=== PATIENT | female | born 1960 | race Caucasian/White ===

== ENCOUNTER 2021-03-02 07:43 | Outpatient (CLI) | payer OTHER, SELFPAY | END 2021-03-02 07:44 | disposition home or self-care (01) | LOC: ANHAUDIO 07:46 | PROVIDERS: PCP Internal Medicine; Visit Provider Nurse Practitioner Family | DX: R42 Dizziness and giddiness (principal); H90.3 Sensorineural hearing loss, bilateral | CPT/HCPCS: 92537; 92540; 92546; 92557; 92567 ==

== ENCOUNTER 2022-09-19 15:17 | Outpatient (CLI) | payer OTHER, SELFPAY ==
--- NOTE | ~2022-09-19 | DEXA_ITS ---
Bone Density Report Name: JUAN PABLO STEPHENS Age: 61 Sex: Female Ethnicity: White Date of : 1960 Indication: postmenopausal; screening for osteoporosis; prior fracture; hysterectomy; Referring Provider: AMANDA, CURT Ye Study: Bone densitometry was performed. Exam Date: September 19, 2022 Accession number: [id number] Bone Density: Region BMD T-score Z-score Classification AP Spine(L1-L4) 1.109 0.6 2.0 Normal Femoral Neck (Left) 0.744 -0.9 0.4 Normal Total Hip (Left) 0.984 0.3 1.3 Normal Femoral Neck (Right) 0.668 -1.6 -0.3 Osteopenia Total Hip (Right) 0.980 0.3 1.3 Normal Total Hip Mean 0.982 0.3 1.3 Normal World Health Organization criteria for BMD impression classify patients as: Normal (T-score at or above -1.0), Osteopenia (T-score between -1.0 and -2.5), or Osteoporosis (T-score at or below -2.5). 10-year Fracture Risk(1): Major Osteoporotic Fracture 14% Hip Fracture 1.3% Reported Risk Factors: [place] (), Neck BMD=0.668, BMI=31.9, previous fracture (1) FRAX(R) Version 3.08. Fracture probability calculated for an untreated patient. Fracture probability may be lower if the patient has received treatment. Clinical Information Provided by Patient: Has had a low trauma fracture Has used the following medications: Vitamin D, Calcium Has the following medical conditions: Hysterectomy Patient maximum height was 64.5 Menopause Age: 46 Drinks caffeinated beverages Onset of menses at age 14 Number of children 1 Impression: The patient has low bone mass, based on the Right Femoral Neck T-score. The patient has an estimated ten-year risk of hip fracture of 1.3% and an estimated ten-year risk of major fracture of 14%, based on the WHO FRAX algorithm. The patient has risk factors, including: previous fracture. Discussion: BONE DENSITY IS LOW AT ONE OR MORE SKELETAL SITES. This patient's lowest T-score is low at one or more skeletal sites. It meets the World Health Organization's (WHO) criteria for ?low bone mass? (T-score between -1.0 and -2.5). The patient's 10-year risk of fracture as calculated by FRAX is less than the threshold where pharmacological therapy is recommended by the National Osteoporosis Foundation (NOF). However, all treatment decisions require clinical judgment and consideration of individual patient factors, including patient preferences, comorbidities, previous drug use, risk factors not captured in the FRAX model (e.g., frailty, falls, vitamin D deficiency, increased bone turnover, interval significant decline in bone density) and possible under or overestimation of fracture risk by FRAX. The patient should follow a healthful lifestyle (good nutrition with adequate calcium and vitamin D, and appropriate weight-bearing exercise). Follow-Up:
== END 2022-09-19 15:18 | disposition home or self-care (01) ==
PROVIDERS: PCP Internal Medicine; Visit Provider Internal Medicine
DX: Z78.0 Asymptomatic menopausal state (principal); M85.851 Other specified disorders of bone density and structure, right thigh
CPT/HCPCS: 77080

== ENCOUNTER → 2023-01-23 14:03 | Outpatient (CLI) | payer OTHER, SELFPAY ==
--- NOTE | ~2023-01-23 | MM_ITS ---
EXAMINATION: MM screening elaine BI w sukhi HISTORY: Screening mammogram TECHNIQUE: Craniocaudal and mediolateral oblique 3-D tomosynthesis images were obtained and synthetic 2-D images were generated. Bilateral rotated lateral CC views. CAD analysis was submitted and interp reted. COMPARISON: No prior mammogram is available for comparison at this institution. BREAST PARENCHYMAL COMPOSITION: There are scattered areas of fibroglandular density. FINDINGS: There is no evidence of suspicious mass, calcification, or architectural distortion to sugg est malignancy in either breast. There has been no suspicious interval change. IMPRESSION: 1. No mammographic evidence of malignancy. 2. Recommend routine screening mammography in one year. BI-RADS Category 1: Negative Reviewed, dictated and finalized at location A.
== END ==
PROVIDERS: PCP Internal Medicine; Visit Provider Internal Medicine
DX: Z12.31 Encounter for screening mammogram for malignant neoplasm of breast (principal)
CPT/HCPCS: 77063; 77067

== ENCOUNTER 2024-08-19 14:46 | Outpatient (CLI) | payer OTHER, SELFPAY ==
--- NOTE | ~2024-08-19 | MM_ITS ---
EXAMINATION: MM screening elaine BI w sukhi HISTORY: Screening mammogram TECHNIQUE: Craniocaudal and mediolateral oblique 3-D tomosynthesis images were obtained and synthetic 2-D images were generated. CAD analysis was submitted and interpreted. COMPARISON: 01/23/2023 BREAST PARENCHYMAL COMPOSITION:Not Dense. There are scattered areas of fibroglandular density. FINDINGS: No suspicious mass, calcification, or architectural distortion are identified in either kiran ast to suggest malignancy. There has been no suspicious interval change. IMPRESSION: No mammographic evidence of malignancy. Recommend routine screening mammography in one year. BI-RADS Category 1: Negative Reviewed, dictated and finalized at location .
== END 2024-08-19 14:47 | disposition home or self-care (01) ==
PROVIDERS: PCP Internal Medicine; Visit Provider Internal Medicine
DX: Z12.31 Encounter for screening mammogram for malignant neoplasm of breast (principal)
CPT/HCPCS: 77063; 77067

== ENCOUNTER 2024-10-28 13:20 | Outpatient (CLI) | payer OTHER, SELFPAY ==
--- NOTE | 2024-10-28 14:30 | NEURO_ITS ---
Impression: # Complains of numbness of hands. Not Diabetic. ? 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 ? # No Carpal Tunnel Syndrome. ? # Normal needle/EMG exam. Nerve Conduction Studies Anti Sensory Summary Table ?Stim Site NR Peak (ms) P-T Amp (?V) Site1 Site2 Delta-P (ms) Dist (cm) Andrew (m/s) Left Median Anti Sensory (2-3nd Digit) Wrist ? 3.3 85.4 Wrist 2-3nd Digit 3.3 14.0 42 Wrist ? 3.3 70.9 Wrist 2-3nd Digit 3.3 14.0 42 Right Median Anti Sensory (2-3nd Digit) Wrist ? 3.0 75.9 Wrist 2-3nd Digit 3.0 14.0 47 Wrist ? 3.1 54.6 Wrist 2-3nd Digit 3.0 14.0 47 Left Radial Anti Sensory (Base 1st Digit) Wrist ? 2.1 39.4 Wrist Base 1st Digit 2.1 0.0 Right Radial Anti Sensory (Base 1st Digit) Wrist ? 2.4 16.2 Wrist Base 1st Digit 2.4 0.0 Left Ulnar Anti Sensory (5th Digit) Wrist ? 3.0 94.3 Wrist 5th Digit 3.0 14.0 47 Right Ulnar Anti Sensory (5th Digit) Wrist ? 2.7 73.7 Wrist 5th Digit 2.7 14.0 52 Motor Summary Table ?Stim Site NR Onset (ms) O-P Amp (mV) Site1 Site2 Delta-0 (ms) Dist (cm) Andrew (m/s) Left Median Motor (Abd Poll Brev) Wrist ? 3.8 9.3 Elbow Wrist 4.6 27.0 59 Elbow ? 8.4 7.4 Right Median Motor (Abd Poll Brev) Wrist ? 3.4 10.2 Elbow Wrist 4.8 28.0 58 Elbow ? 8.2 8.5 Left Ulnar Motor (Abd Dig Minimi) Wrist ? 2.6 6.2 A Elbow Wrist 5.5 30.0 55 A Elbow ? 8.1 5.4 Right Ulnar Motor (Abd Dig Minimi) Wrist ? 2.1 6.1 A Elbow Wrist 5.9 29.0 49 A Elbow ? 8.0 4.6 B Elbow Wrist 3.7 19.0 51 B Elbow ? 5.8 5.4 F Wave Studies ?NR F-Lat (ms) L-R F-Lat (ms) Left Median (Mrkrs) (Abd Poll Brev) ? 28.77 1.35 Right Median (Mrkrs) (Abd Poll Brev) ? 27.42 1.35 Left Ulnar (Mrkrs) (Abd Dig Min) ? 28.95 0.41 Right Ulnar (Mrkrs) (Abd Dig Min) ? 28.54 0.41 EMG ?Side Muscle Nerve Root Ins Act Fibs Amp Dur Recrt Comment Right 1stDorInt Ulnar C8-T1 Nml Nml Nml Nml Nml Right Ext Indicis Radial (Post Int) C7-8 Nml Nml Nml Nml Nml Right Ext Digitorum Radial (Post Int) C7-8 Nml Nml Nml Nml Nml Right BrachioRad Radial C5-6 Nml Nml Nml Nml Nml Right PronatorTeres Median C6-7 Nml Nml Nml Nml Nml Right Abd Poll Brev Median C8-T1 Nml Nml Nml Nml Nml Right ABD Dig Min Ulnar C8-T1 Nml Nml Nml Nml Nml Left 1stDorInt Ulnar C8-T1 Nml Nml Nml Nml Nml Left Ext Indicis Radial (Post Int) C7-8 Nml Nml Nml Nml Nml Left Ext Digitorum Radial (Post Int) C7-8 Nml Nml Nml Nml Nml Left BrachioRad Radial C5-6 Nml Nml Nml Nml Nml Left PronatorTeres Median C6-7 Nml Nml Nml Nml Nml Left Abd Poll Brev Median C8-T1 Nml Nml Nml Nml Nml Left ABD Dig Min Ulnar C8-T1 Nml Nml Nml Nml Nml MTDD
== END 2024-10-28 13:21 | disposition home or self-care (01) ==
LOC: ANHNEURO 13:21
PROVIDERS: PCP Internal Medicine; Visit Provider Internal Medicine
DX: G56.21 Lesion of ulnar nerve, right upper limb (principal)
CPT/HCPCS: 95886; 95911

== ENCOUNTER 2025-03-22 07:50 | Outpatient (CLI) | payer OTHER, SELFPAY ==
--- NOTE | ~2025-03-22 | DEXA_ITS ---
Bone Density Report Name: JUAN PABLO STEPHENS Age: 64 Sex: Female Ethnicity: White Date of : 1960 Indication: postmenopausal; screening for osteoporosis; height loss; prior fracture; hysterectomy; Referring Provider: AMANDA, CURT Ye Study: Bone densitometry was performed. Exam Date: March 22, 2025 Accession number: [id number] Bone Density: Region BMD T-score Z-score Classification AP Spine(L1-L4) 1.086 0.4 2.0 Normal Femoral Neck (Left) 0.671 -1.6 -0.2 Osteopenia Total Hip (Left) 0.909 -0.3 0.9 Normal Femoral Neck (Right) 0.647 -1.8 -0.4 Osteopenia Total Hip (Right) 0.904 -0.3 0.8 Normal Total Hip Mean 0.906 -0.3 0.9 Normal World Health Organization criteria for BMD impression classify patients as: Normal (T-score at or above -1.0), Osteopenia (T-score between -1.0 and -2.5), or Osteoporosis (T-score at or below -2.5). 10-year Fracture Risk(1): Major Osteoporotic Fracture 16% Hip Fracture 2.0% Reported Risk Factors: [place] (), Neck BMD=0.647, BMI=27.1, previous fracture (1) FRAX(R) Version 3.08. Fracture probability calculated for an untreated patient. Fracture probability may be lower if the patient has received treatment. Previous Exams: Region Exam Age BMD T-score BMD Change BMD Change Date g/cm2 vs Baseline vs Previous AP Spine (L1-L4) 03/22/2025 64 1.086 0.4 -0.023 (-2.1%) -0.023 (-2.1%) 09/19/2022 61 1.109 0.6 Total Hip(Left) 03/22/2025 64 0.909 -0.3 -0.075 (-7.7%) -0.075 (-7.7%) 09/19/2022 61 0.984 0.3 Total Hip(Right) 03/22/2025 64 0.904 -0.3 -0.076 (-7.8%) -0.076 (-7.8%) 09/19/2022 61 0.980 0.3 *Denotes significance at 95% confidence level, LSC for AP Spine = 0.022 g/cm2, LSC for Total Hip = 0.027 g/cm2 Clinical Information Provided by Patient: Has had a low trauma fracture Has used the following medications: Vitamin D, Calcium Has the following medical conditions: Hysterectomy Patient maximum height was 64.0 Menopause Age: 46 No regular weight bearing exercise Drinks caffeinated beverages Onset of menses at age 13 Number of children 1 Impression: The patient has low bone mass, based on the Right Femoral Neck T-score. The patient has an estimated ten-year risk of hip fracture of 2% and an estimated ten-year risk of major fracture of 16%, based on the WHO FRAX algorithm. The patient has risk factors, including: previous fracture. The BMD for the AP Spine (L1-L4) decreased, changing by -2.1% since the last DXA exam. The BMD for the Total Hip(Left) decreased, changing by -7.7% since the last DXA exam. The BMD for the Total Hip(Right) decreased, changing by -7.8% since the last DXA exam. Discussion: BONE DENSITY IS LOW AT ONE OR MORE SKELETAL SITES. This patient's lowest T-score is low at one or more skeletal sites. It meets the World Health Organization's (WHO) criteria for ?low bone mass? (T-score between -1.0 and -2.5). The patient's 10-year risk of fracture as calculated by FRAX is less than the threshold where pharmacological therapy is recommended by the National Osteoporosis Foundation (NOF). However, all treatment decisions require clinical judgment and consideration of individual patient factors, including patient preferences, comorbidities, previous drug use, risk factors not captured in the FRAX model (e.g., frailty, falls, vitamin D deficiency, increased bone turnover, interval significant decline in bone density) and possible under or overestimation of fracture risk by FRAX. The patient should follow a healthful lifestyle (good nutrition with adequate calcium and vitamin D, and appropriate weight-bearing exercise). Follow-Up: Consider repeating this study in 2 years to reassess this patient's status, or sooner if there is some new clinical indication. Reported by: KEVIN on 03/22/2025 8:40:00 AM. Reviewed, dictated and finalized at location A.
--- OUTSIDE RECORDS SUMMARY | 2025-03-22 07:54 | XMS_ITS | Clinical Summary ---
Author Organization [facility] Address [address] [place] [address] Care Team Providers Care Motion Picture Director Name Role Phone Unavailable Primary Care Provider Unavailabl e Source Comments [facility],non-owned Affiliates and Associated Physician Practices is amultiple site organization consisting of ambulatory clinics and hospital sitesin [place], [place], [place]. This disclosure is being madepursuant to the Care Everywhere program and may not contain all information available regarding this patient. Last updated 18.[facility] Social History Tobacco Use Types Packs/Day Years Used Date Smoking Tobacco: Never Assessed Comments Unknown Sex and Gender Information Value Date Recorded Sex Assigned at Not on file Legal Sex Female 3:21 PM [employer] Gender Identity Not on file Sexual Orientation Not on file Plan of Treatment Health Maintenance Due Date Last Done Comments COLOGUARD (AGES 45-75) - COL ON CA SCREENING 1960 COLON MONITORING 1961 COLONOSCOPY - COLON CA SCREENING 1960 CT COLONOGRAPHY - COLON CA SCREENING 1960 Colorectal Cancer Screening 1960 FIT - COLON CA SCREENING 1961 FLEX SIG - COLON CA SCREENING 1961 LIPID TESTING 1960 MAMMOGRAM 1960 PAP SMEAR 1961 HIV SCREENING 1976 HEPATITIS C SCREENING 10/14/1979 DTAP/TDAP/TD VACCINES (1 - Tdap) 1980 PNEUMOCOCCAL VACCINE 50+ (1 of 1 - PCV) 2011 ZOSTER VACCINE (1 of 2) 2011 COVID-19 VACCINE ( - 2023-2 5 season) 2024 DEPRESSION SCREENING 10/21/2024 INFLUENZA VACCINE (Season Ended) 2025 Respiratory Syncytial Virus (RSV) Vaccine Pt: or over 60 yrs (1 - 1-dose 75+ series) 2036 HEPATITIS B VACCINE Aged Out No longe r eligible based on patient's age to complete this topic HIB VACCINE Aged Out No longer eligi ble based on patient's age to complete this topic HPV VACCINE Aged Out No longer eligi ble based on patient's age to complete this topic MENINGOCOCCAL (Group B) VACC INE SHARED DECISION-MAKING Aged Out No longer eligibl e based on patient's age to complete this topic MENINGOCOCCAL GROUPS A/C/Y/W VACCINE Aged Out No longer eligible b ased on patient's age to complete this topic Insurance [facility]
--- OUTSIDE RECORDS SUMMARY | 2025-03-22 07:55 | XMS_ITS | Data Portability ---
Author Organization [facility] [employer], Main Office Address [address] [place] [address] Assessment No assessment recorded. Plan of Treatment Reminders Order Date Submit Date Provider Last Modified By Organization Details Last Modified Time Details Appointments None recorded . Lab CBC w/ auto diff 025 03/01/20 25 [facility] Out[facility] Lab, [address] [place], [address], 5 20:30:04 CMP, serum or plasma 025 03/01/20 25 [facility] Out[facility], [address] [place], [address], 5 20:30:02 lipid panel, serum 025 03/01/20 25 [facility] Out[facility], [address] [place], [address], 5 20:30:00 TSH, serum or plasma 025 03/01/20 25 [facility] Out[facility], [address] [place], [address], 5 20:30:06 T4, free, serum 025 03/01/20 25 [facility] Out[facility], [address] [place], [address], 5 20:30:05 lipid panel, serum 024 08/03/20 24 [facility] Out[facility], [address] [place], [address], 4 03:50:11 CBC w/ auto diff 024 08/03/20 24 [facility] Out[facility], [address] [place], [address], 4 03:50:15 CMP, serum or plasma 024 08/03/20 24 [facility] Out[facility], [address] [place], [address], 4 03:50:14 TSH, serum or plasma 024 08/03/20 24 [facility] Out[facility] Lab, [address] [place] [address], [address], 4 03:50:17 T4, free, serum 024 08/03/20 24 [facility] Out[facility], [address] [place], [address], 4 03:50:16 lipid panel, serum 024 12/02/[email or web address] [facility], [address] [place] [address], [address], 4 12:07:22 CMP, serum or plasma 024 12/02/[id number] [facility] [address] [facility], [address] [place], [address], 4 12:07:23 T4, free, serum 024 12/02/[id number] [facility], [address] [place], [address], 4 12:07:23 TSH, serum or plasma 024 12/02/[id number] [facility], [address] [place] [address], [address], 4 12:07:23 CBC w/ auto diff 024 12/02/19 24 [id number] [facility] [place] - Outpatient Lab, [address] [facility], [place], [address], 4 12:07:22 Referral None recorded . Procedures None recorded . Surgeries None recorded . Imaging None recorded . Medication Orders None recorded . Patient TargetsNo targets recorded. Patient Instructions Encounter Date Encounter Id Patient Instructions Last Modified By Organization Details Last Modified Time 12/02/2023 [id number] Hypertension -hyperlipidemia-LIBRADO D clinically stable. Will continue on current medications. Will check a venous Doppler lower extremities. Check blood work in the form of CBC, CMP lipid and thyroid. Follow-up in four months Portions of the record may have been created with voice recognition software. Occasional wrong-word or s ound-a-like substitutions may have occurred due to the inherent limitations of voice recognition software. Read the chart carefully and recognize, using context, where substitutions have occurred. Venous Doppler left leg Not available 12/02/2023 15:57:53 03/30/2024 [id number] Follow-up hypertension, hyperlipidemia, hypothyroidism, GERD, depression as well as obesity class one. Will continue on current Rx. Check blood work on next visit. Does need a mammogram. Follow-up in four months Mammogram Next Appointment: 4 Months Approximate Date: 07/28/2024 Portions of the record may have been created with voice recognition software. Occasional wrong-word or s ound-a-like substitutions may have occurred due to the inherent limitations of voice recognition software. Read the chart carefully and recognize, using context, where substitutions have occurred. [email or web address] Not available 03/30/2024 17:01:24 08/03/2024 [id number] risk assessment* [email or web address] Not availabl e 08/03/2024 17:14:53 INFLUENZA VACCIN E Recommended today, but patient declined Ordered Pa carla will get at local pharmacy/health department Patient has egg allergy Next vaccination to be given fall of Next vaccination to be given fall of _2024__ TD/TDAP Patient will get at local pharmacy/health department PNEUMONIA VACCINE Recommended at age 65 SHINGLES Patient will get at local pharmacy/health department MAMMOGRAM: Last Mammogram Recommended today, but patient declined Ordered No screening indicated at this time/ no family history No screening necessary patient is up to date Recommended today DEXA SCAN Recommended today, but patient declined Ordered No screening indicated No screening necessary patient is up to date Recommended today CERVICAL SCREENING/PELVIC EXAMINATION COLORECTAL SCREENING: Last Colonoscopy No screening necessary patient is up to date DEPRESSION SCREENING Negative BMI Overweight try to lose 10% of your body weight NUTRITION Heart Healthy Diet Recommendation of a 1500 caloric intake for weight loss is advised Diabetic Diet Renal Diet DASH Diet Continue healthy eating & exercise Eat Heart Healthy Diet PHYSICAL ACTIVITY Need more exercise/physical activity VISION Ordered Recommended today Recommended today, but you have declined No Eye exam necessary Your next exam in: goes yearly ALCOHOL USE Occasional/Social Use TOBACCO USE non smoker LUNG CANCER SCREENING Non Smoker-not indicated SEXUALLY ACTIVE HEPATITIS C SCREENING Not indicated GLUCOSE SCREENING Ordered Not needed Known Diabetic up to date LIPID SCREENING Ordered Not needed Diagnosis of Hyperlipidemia up to date [email or web address] Not available 08/03/2024 17:01:05 Wellness evaluat ion risk assessment stable. Currently doing well otherwise. Follow-up for hypertension, hyperlipidemia, hypothyroidism and obesity class one. All clinically stable. Will continue on current medications. Check blood work consisting of CBC, CMP, lipid and thyroid. Follow-up in four months Follow Up: 4 Months Approximate Date: 12/01/2024 Portions of the record may have been created with voice recognition software. Occasional wrong-word or s ound-a-like substitutions may have occurred due to the inherent limitations of voice recognition software. Read the chart carefully and recognize, using context, where substitutions have occurred. [email or web address] Not available 08/03/2024 17:14:39 11/30/2024 [id number] Follow-up for hypertension, hyperlipidemia, hypothyroidism, GERD all clinically stable. Will continue on current medications last blood work done looked excellent see no reason to repeat any at this time. Check back in four months Follow Up: 4 Months Approximate Date: 03/30/2025 Portions of record are template driven. When necessary additional context will be provided. Additionally some portions have been created with voice recognition software. Occasional wrong-word or s ound-a-like substitutions may have occurred due to the inherent limitations of voice recognition software. Read the chart carefully and recognize, using context, where substitutions may have occurred. Created: Ambrocio Leahy M.D. 11.30.2024 04:21 PM [email or web address] Not available 11/30/2024 17:21:28 03/01/2025 [id number] Follow-up essent ial hypertension, hypothyroidism, hyperlipidemia and GERD clinically stable. Blood pressure elevated today. Will continue on current medication check blood work consisting of CBC, CMP, lipid, thyroid. Recheck blood pressure in two weeks. If remains elevated may need to add additional medications. Would probably add an Arb in the form of losartan 50 mg once daily pending those results. Clinically is doing well otherwise. Will follow-up examination in four months. Additional Orders - Directives - Recommendations 1. Recheck blood pressure in two weeks Follow Up: 4 Months Approximate Date: 06/29/2025 Portions of record are template driven. When necessary additional context will be provided. Additionally some portions have been created with voice recognition software. Occasional wrong-word or s ound-a-like substitutions may have occurred due to the inherent limitations of voice recognition software. Read the chart carefully and recognize, using context, where substitutions may have occurred. Created: Ambrocio Leahy M.D. 03.01.2025 02:41 PM Not available 03/01/2025 15:41:51 Reason for Referral None Reported. Results Created Date Observation Date Name Description Value Unit Range Abnormal Flag Note LastModifiedBy Organization Detail LastModifiedTime 02/04/20 24 02/05/2024 LIPID PANEL , STAND DIANE cholesterol, total 127 mg/dL <200 normal Not Available [facility] [id number] [place] [address], [address], 02/05/2024 06:26:09 02/04/20 24 02/05/2024 LIPID PANEL , STAND DIANE HDL cholesterol 50 mg/dL > or = 50 normal Not Available [facility] [id number] [place] [address], [address], 02/05/2024 06:26:09 02/04/20 24 02/05/2024 LIPID PANEL , STAND DIANE triglyceride s 92 mg/dL <150 normal Not Available [facility] [place] [address] [place] [address] [place], [address], 02/05/2024 06:26:09 02/04/20 24 02/05/2024 LIPID PANEL , STAND DIANE LDL-choleste rol 59 mg/dL _(asher c) normal Refer ence range : <100 Ethna able range <100 mg/dL for prima ry preve ntion ; <70 mg/dL for patie nts with CHD or diabe tic patie nts with > or = 2 CHD risk facto rs. LDL-C is now calcu lated using the Almar Osa n-Hop kins calcu latandi n, which is a valid ated novel metho d provi ding guillaume r accur acy than the Fried jamie equat ion in the estim ation of LDL-C . Alma Rosa tsang SS et al. BRANDI. 2013; 310(1 9): 2061- 2068 (http ://ed ucati on.FM [employer]. com/f aq/FA Q164) Not Available [facility] [address] [address] [place], [address], 02/05/2024 06:26:09 02/04/20 24 02/05/2024 LIPID PANEL , STAND DIANE chol/HDLC ratio 2.5 (calc ) <5.0 normal Not Available [facility] [address] [address] [place], [address], 02/05/2024 06:26:09 02/04/20 24 02/05/2024 LIPID PANEL , STAND DIANE non HDL cholesterol 77 mg/dL _(asher c) <130 normal For patie nts with diabe yisel plus 1 major ASCVD risk facto r, treat ing to a non-H DL-C goal of <100 mg/dL (LDL- C of <70 mg/dL ) is flower byers c optio n. Not Available [facility] [address] [address] [place], [address], 02/05/2024 06:26:09 02/04/20 24 02/05/2024 TSH+F REE T4 TSH 2.36 mIU/L 0.40-4 .50 normal Not Available [address], [address], 02/05/2024 06:26:10 02/04/20 24 02/05/2024 TSH+F REE T4 T4, free 1.2 NG/dL 0.8-1. 8 normal Not Available [address], [address], 02/05/2024 06:26:10 02/04/20 24 02/05/2024 COMPR EHENS LEANA METAB OLIC PANEL glucose 105 mg/dL 65-99 high Fasti ng refer ence inter karla For someo ne witho ut known diabe yisel, a gluco se value betwe en 100 and 125 mg/dL is consi stent with predi abete s and shoul d be confi rmed with a follo w-up test. Not Available [address], [address], 02/05/2024 06:26:11 02/04/20 24 02/05/2024 COMPR EHENS LEANA METAB OLIC PANEL urea nitrogen (BUN) 21 mg/dL 7-25 normal Not Available [address], [address], 02/05/2024 06:26:11 02/04/20 24 02/05/2024 COMPR EHENS LEANA METAB OLIC PANEL creatinine 0.81 mg/dL 0.50-1 .05 normal Not Available [address], [address], 02/05/2024 06:26:11 02/04/20 24 02/05/2024 COMPR EHENS LEANA METAB OLIC PANEL eGFR 82 mL/mi n/1.7 3m2 > or = 60 normal Not Available [address], [address], 02/05/2024 06:26:11 02/04/20 24 02/05/2024 COMPR EHENS LEANA METAB OLIC PANEL BUN/creatini ne ratio SEE NOTE: (calc ) 6-22 Not Repor kaur: BUN and Creat inine are withi n refer ence range . Not Available [address], [address], 02/05/2024 06:26:11 02/04/20 24 02/05/2024 COMPR EHENS LEANA METAB OLIC PANEL sodium 139 mmol/ L 135-14 6 normal Not Available [address], [address], 02/05/2024 06:26:11 02/04/20 24 02/05/2024 COMPR EHENS LEANA METAB OLIC PANEL potassium 3.9 mmol/ L 3.5-5. 3 normal Not Available [address], [address], 02/05/2024 06:26:11 02/04/20 24 02/05/2024 COMPR EHENS LEANA METAB OLIC PANEL chloride 100 mmol/ L 98-110 normal Not Available [address], [address], 02/05/2024 06:26:11 02/04/20 24 02/05/2024 COMPR EHENS LEANA METAB OLIC PANEL carbon dioxide 32 mmol/ L 20-32 normal Not Available [address], [address], 02/05/2024 06:26:11 02/04/20 24 02/05/2024 COMPR EHENS LEANA METAB OLIC PANEL calcium 10.1 mg/dL 8.6-10 .4 normal Not Available [address], [address], 02/05/2024 06:26:11 02/04/20 24 02/05/2024 COMPR EHENS LEANA METAB OLIC PANEL protein, total 7.3 g/dL 6.1-8. 1 normal Not Available [address], [address], 02/05/2024 06:26:11 02/04/20 24 02/05/2024 COMPR EHENS LEANA METAB OLIC PANEL albumin 4.8 g/dL 3.6-5. 1 normal Not Available [address], [address], 02/05/2024 06:26:11 02/04/20 24 02/05/2024 COMPR EHENS LEANA METAB OLIC PANEL globulin 2.5 g/dL_ (calc ) 1.9-3. 7 normal Not Available [address], [address], 02/05/2024 06:26:11 02/04/20 24 02/05/2024 COMPR EHENS LEANA METAB OLIC PANEL albumin/glob ulin ratio 1.9 (calc ) 1.0-2. 5 normal Not Available [address], [address], 02/05/2024 06:26:11 02/04/20 24 02/05/2024 COMPR EHENS LEANA METAB OLIC PANEL bilirubin, total 0.5 mg/dL 0.2-1. 2 normal Not Available [address], [address], 02/05/2024 06:26:11 02/04/20 24 02/05/2024 COMPR EHENS LEANA METAB OLIC PANEL alkaline phosphatase 69 U/L 37-153 normal Not Available [facility] [address], [address], 02/05/2024 06:26:11 02/04/20 24 02/05/2024 COMPR EHENS LEANA METAB OLIC PANEL AST 19 U/L 10-35 normal Not Available [address], [address], 02/05/2024 06:26:11 02/04/20 24 02/05/2024 COMPR EHENS LEANA METAB OLIC PANEL ALT 17 U/L 6-29 normal Not Available [address], [address], 02/05/2024 06:26:11 02/04/20 24 02/05/2024 CBC (INCL UDES DIFF/ PLT) white blood cell count 5.1 thous and/u L 3.8-10 .8 normal Not Available [address], [address], 02/05/2024 06:26:12 02/04/20 24 02/05/2024 CBC (INCL UDES DIFF/ PLT) red blood cell count 4.91 mary on/uL 3.80-5 .10 normal Not Available [address], [address], 02/05/2024 06:26:12 02/04/20 24 02/05/2024 CBC (INCL UDES DIFF/ PLT) hemoglobin 15.1 g/dL 11.7-1 5.5 normal Not Available [address], [address], 02/05/2024 06:26:12 02/04/20 24 02/05/2024 CBC (INCL UDES DIFF/ PLT) hematocrit 46.6 % 35.0-4 5.0 high Not Available [address], [address], 02/05/2024 06:26:12 02/04/20 24 02/05/2024 CBC (INCL UDES DIFF/ PLT) MCV 94.9 fL 80.0-1 00.0 normal Not Available [address], [address], 02/05/2024 06:26:12 02/04/20 24 02/05/2024 CBC (INCL UDES DIFF/ PLT) MCH 30.8 pg 27.0-3 3.0 normal Not Available [address], [address], 02/05/2024 06:26:12 02/04/20 24 02/05/2024 CBC (INCL UDES DIFF/ PLT) MCHC 32.4 g/dL 32.0-3 6.0 normal Not Available [address], [address], 02/05/2024 06:26:12 02/04/20 24 02/05/2024 CBC (INCL UDES DIFF/ PLT) RDW 12.8 % 11.0-1 5.0 normal Not Available [address], [address], 02/05/2024 06:26:12 02/04/20 24 02/05/2024 CBC (INCL UDES DIFF/ PLT) platelet count 175 thous and/u L 140-40 0 normal Not Available [address], [address], 02/05/2024 06:26:12 02/04/20 24 02/05/2024 CBC (INCL UDES DIFF/ PLT) MPV 12.1 fL 7.5-12 .5 normal Not Available [address], [address], 02/05/2024 06:26:12 02/04/20 24 02/05/2024 CBC (INCL UDES DIFF/ PLT) absolute neutrophils 2973 cells /uL 1500-7 800 normal Not Available [address], [address], 02/05/2024 06:26:12 02/04/20 24 02/05/2024 CBC (INCL UDES DIFF/ PLT) absolute lymphocytes 1652 cells /uL 850-39 00 normal Not Available [address] [place], [address], 02/05/2024 06:26:12 02/04/20 24 02/05/2024 CBC (INCL UDES DIFF/ PLT) absolute monocytes 291 cells /uL 200-95 0 normal Not Available [facility] [address], [address], 02/05/2024 06:26:12 02/04/20 24 02/05/2024 CBC (INCL UDES DIFF/ PLT) absolute eosinophils 133 cells /uL 15-500 normal Not Available [facility] [address], [address], 02/05/2024 06:26:12 02/04/20 24 02/05/2024 CBC (INCL UDES DIFF/ PLT) absolute basophils 51 cells /uL 0-200 normal Not Available [facility] [address], [address], 02/05/2024 06:26:12 02/04/20 24 02/05/2024 CBC (INCL UDES DIFF/ PLT) neutrophils 58.3 % normal Not Available [facility] [address], [address], 02/05/2024 06:26:12 02/04/20 24 02/05/2024 CBC (INCL UDES DIFF/ PLT) lymphocytes 32.4 % normal Not Available [address], [address], 02/05/2024 06:26:12 02/04/20 24 02/05/2024 CBC (INCL UDES DIFF/ PLT) monocytes 5.7 % normal Not Available [address], [address], 02/05/2024 06:26:12 02/04/20 24 02/05/2024 CBC (INCL UDES DIFF/ PLT) eosinophils 2.6 % normal Not Available [address], [address], 02/05/2024 06:26:12 02/04/20 24 02/05/2024 CBC (INCL UDES DIFF/ PLT) basophils 1.0 % normal Not Available [address], [address], 02/05/2024 06:26:12 08/05/20 24 08/06/2024 LIPID PANEL , STAND DIANE cholesterol, total 122 mg/dL <200 normal Not Available [address], [address], 08/06/2024 03:50:11 08/05/2008/06/2024 LIPID PANEL , STAND DIANE HDL cholesterol 51 mg/dL > or = 50 normal Not Available [address], [address], 08/06/2024 03:50:11 08/05/20 24 08/06/2024 LIPID PANEL , STAND DIANE triglyceride s 82 mg/dL <150 normal Not Available [address], [address], 08/06/2024 03:50:11 08/05/20 24 08/06/2024 LIPID PANEL , STAND DIANE LDL-choleste rol 55 mg/dL _(asher c) normal Refer ence range : <100 Ethan able range <100 mg/dL for prima ry preve ntion ; <70 mg/dL for patie nts with CHD or diabe tic patie nts with > or = 2 CHD risk facto rs. LDL-C is now calcu lated using the Alma Rosa n-Hop kins marion anderson n, which is a valid ated novel becky xie than the Fried jamie quirosat ion in the estim ation of LDL-C . Alma Rosa tsang SS et al. BRANDI. 2013; 310(1 9): 2061- 2068 (http ://ed ucati on.Qu [employer]. com/f aq/FA Q164) Not Available [address] [address] [place], [address], 08/06/2024 03:50:11 08/05/20 24 08/06/2024 LIPID PANEL , STAND DIANE chol/HDLC ratio 2.4 (calc ) <5.0 normal Not Available [address], [address], 08/06/2024 03:50:11 08/05/20 24 08/06/2024 LIPID PANEL , STAND DIANE non HDL cholesterol 71 mg/dL _(asher c) <130 normal For patie nts with diabe yisel plus 1 major ASCVD risk facto r, treat ing to a non-H DL-C goal of <100 mg/dL (LDL- C of <70 mg/dL ) is consi neelamd a thera peuti c optio n. Not Available [address], [address], 08/06/2024 03:50:11 08/05/20 24 08/06/2024 COMPR EHENS LEANA METAB OLIC PANEL glucose 83 mg/dL 65-99 normal Fasti ng refer ence inter karla Not Available [address] [address] [place], [address], 08/06/2024 03:50:13 08/05/20 24 08/06/2024 COMPR EHENS LEANA METAB OLIC PANEL urea nitrogen (BUN) 19 mg/dL 7-25 normal Not Available [address], [address], 08/06/2024 03:50:13 08/05/20 24 08/06/2024 COMPR EHENS LEANA METAB OLIC PANEL creatinine 0.77 mg/dL 0.50-1 .05 normal Not Available [address] [address] [place], [address], 08/06/2024 03:50:13 08/05/20 24 08/06/2024 COMPR EHENS LEANA METAB OLIC PANEL eGFR 87 mL/mi n/1.7 3m2 > or = 60 normal Not Available [address], [address], 08/06/2024 03:50:13 08/05/20 24 08/06/2024 COMPR EHENS LEANA METAB OLIC PANEL BUN/creatini ne ratio SEE NOTE: (calc ) 6-22 Not Repor kaur: BUN and Creat inine are withi n refer ence range . Not Available [address], [address], 08/06/2024 03:50:13 08/05/2008/06/2024 COMPR EHENS LAENA METAB OLIC PANEL sodium 143 mmol/ L 135-14 6 normal Not Available [address], [address], 08/06/2024 03:50:13 08/05/20 24 08/06/2024 COMPR EHENS LEANA METAB OLIC PANEL potassium 4.2 mmol/ L 3.5-5. 3 normal Not Available [address], [address], 08/06/2024 03:50:13 08/05/20 24 08/06/2024 COMPR EHENS LEANA METAB OLIC PANEL chloride 103 mmol/ L 98-110 normal Not Available [address], [address], 08/06/2024 03:50:13 08/05/20 24 08/06/2024 COMPR EHENS LEANA METAB OLIC PANEL carbon dioxide 32 mmol/ L 20-32 normal Not Available [address], [address], 08/06/2024 03:50:13 08/05/20 24 08/06/2024 COMPR EHENS LEANA METAB OLIC PANEL calcium 10.0 mg/dL 8.6-10 .4 normal Not Available [address], [address], 08/06/2024 03:50:13 08/05/2008/06/2024 COMPR EHENS LEANA METAB OLIC PANEL protein, total 6.9 g/dL 6.1-8. 1 normal Not Available [address], [address], 08/06/2024 03:50:13 08/05/20 24 08/06/2024 COMPR EHENS LEANA METAB OLIC PANEL albumin 4.7 g/dL 3.6-5. 1 normal Not Available [address], [address], 08/06/2024 03:50:13 08/05/20 24 08/06/2024 COMPR EHENS LEANA METAB OLIC PANEL globulin 2.2 g/dL_ (calc ) 1.9-3. 7 normal Not Available [address], [address], 08/06/2024 03:50:13 08/05/2008/06/2024 COMPR EHENS LEANA METAB OLIC PANEL albumin/glob ulin ratio 2.1 (calc ) 1.0-2. 5 normal Not Available [address], [address], 08/06/2024 03:50:13 08/05/20 24 08/06/2024 COMPR EHENS LEANA METAB OLIC PANEL bilirubin, total 0.5 mg/dL 0.2-1. 2 normal Not Available [address], [address], 08/06/2024 03:50:13 08/05/20 24 08/06/2024 COMPR EHENS LEANA METAB OLIC PANEL alkaline phosphatase 60 U/L 37-153 normal Not Available [address] [address] [place], [address], 08/06/2024 03:50:13 08/05/20 24 08/06/2024 COMPR EHENS LEANA METAB OLIC PANEL AST 20 U/L 10-35 normal Not Available [address], [address], 08/06/2024 03:50:13 08/05/20 24 08/06/2024 COMPR EHENS LEANA METAB OLIC PANEL ALT 20 U/L 6-29 normal Not Available [address], [address], 08/06/2024 03:50:13 08/05/20 24 08/06/2024 CBC (INCL UDES DIFF/ PLT) white blood cell count 4.5 thous and/u L 3.8-10 .8 normal Not Available [address], [address], 08/06/2024 03:50:15 08/05/20 24 08/06/2024 CBC (INCL UDES DIFF/ PLT) red blood cell count 4.67 mary on/uL 3.80-5 .10 normal Not Available [address], [address], 08/06/2024 03:50:15 08/05/20 24 08/06/2024 CBC (INCL UDES DIFF/ PLT) hemoglobin 14.4 g/dL 11.7-1 5.5 normal Not Available [address], [address], 08/06/2024 03:50:15 08/05/20 24 08/06/2024 CBC (INCL UDES DIFF/ PLT) hematocrit 44.2 % 35.0-4 5.0 normal Not Available [address], [address], 08/06/2024 03:50:15 08/05/20 24 08/06/2024 CBC (INCL UDES DIFF/ PLT) MCV 94.6 fL 80.0-1 00.0 normal Not Available [address], [address], 08/06/2024 03:50:15 08/05/20 24 08/06/2024 CBC (INCL UDES DIFF/ PLT) MCH 30.8 pg 27.0-3 3.0 normal Not Available [address], [address], 08/06/2024 03:50:15 08/05/20 24 08/06/2024 CBC (INCL UDES DIFF/ PLT) MCHC 32.6 g/dL 32.0-3 6.0 normal For adult s, a sligh t decre ase in the calcu lated MCHC value (in the range of 30 to 32 g/dL) is most likel y not clini taniya signi fican t; melvina er, it shoul d be inter prete d with cauti on in corre latio n with other red cell gustavo eters and the patie nt's clini asehr condi tion. Not Available [address], [address], 08/06/2024 03:50:15 08/05/20 24 08/06/2024 CBC (INCL UDES DIFF/ PLT) RDW 11.7 % 11.0-1 5.0 normal Not Available [address], [address], 08/06/2024 03:50:15 08/05/20 24 08/06/2024 CBC (INCL UDES DIFF/ PLT) platelet count 170 thous and/u L 140-40 0 normal Not Available [address], [address], 08/06/2024 03:50:15 08/05/20 24 08/06/2024 CBC (INCL UDES DIFF/ PLT) MPV 11.6 fL 7.5-12 .5 normal Not Available [address] [place], [address], 08/06/2024 03:50:15 08/05/2008/06/2024 CBC (INCL UDES DIFF/ PLT) absolute neutrophils 2309 cells /uL 1500-7 800 normal Not Available [address], [address], 08/06/2024 03:50:15 08/05/20 24 08/06/2024 CBC (INCL UDES DIFF/ PLT) absolute lymphocytes 1715 cells /uL 850-39 00 normal Not Available [address], [address], 08/06/2024 03:50:15 08/05/2008/06/2024 CBC (INCL UDES DIFF/ PLT) absolute monocytes 297 cells /uL 200-95 0 normal Not Available [address], [address], 08/06/2024 03:50:15 08/05/20 24 08/06/2024 CBC (INCL UDES DIFF/ PLT) absolute eosinophils 140 cells /uL 15-500 normal Not Available [address], [address], 08/06/2024 03:50:15 08/05/20 24 08/06/2024 CBC (INCL UDES DIFF/ PLT) absolute basophils 41 cells /uL 0-200 normal Not Available [address], [address], 08/06/2024 03:50:15 08/05/20 24 08/06/2024 CBC (INCL UDES DIFF/ PLT) neutrophils 51.3 % normal Not Available [address], [address], 08/06/2024 03:50:15 08/05/20 24 08/06/2024 CBC (INCL UDES DIFF/ PLT) lymphocytes 38.1 % normal Not Available [address], [address], 08/06/2024 03:50:15 08/05/20 24 08/06/2024 CBC (INCL UDES DIFF/ PLT) monocytes 6.6 % normal Not Available [address], [address], 08/06/2024 03:50:15 08/05/20 24 08/06/2024 CBC (INCL UDES DIFF/ PLT) eosinophils 3.1 % normal Not Available [address], [address], 08/06/2024 03:50:15 08/05/20 24 08/06/2024 CBC (INCL UDES DIFF/ PLT) basophils 0.9 % normal Not Available [address], [address], 08/06/2024 03:50:15 08/05/20 24 08/06/2024 T4, FREE T4, free 1.6 NG/dL 0.8-1. 8 normal Not Available [address], [address], 08/06/2024 03:50:16 08/05/20 24 08/06/2024 TSH TSH 0.59 mIU/L 0.40-4 .50 normal Not Available [address], [address], 08/06/2024 03:50:17 03/02/20 25 03/02/2025 LIPID PANEL , STAND DIANE cholesterol, total 133 mg/dL <200 normal Not Available [address], [address], 03/02/2025 20:30:00 03/02/20 25 03/02/2025 LIPID PANEL , STAND DIANE HDL cholesterol 55 mg/dL > or = 50 normal Not Available [address] , [place], [address], 03/02/2025 20:30:00 03/02/20 25 03/02/2025 LIPID PANEL , STAND DIANE triglyceride s 79 mg/dL <150 normal Not Available [address] , [place], [address], 03/02/2025 20:30:00 03/02/20 25 03/02/2025 LIPID PANEL , STAND DIANE LDL-choleste rol 62 mg/dL _(asher c) normal Refer ence range : <100 Ethan able range <100 mg/dL for prima ry preve ntion ; <70 mg/dL for patie nts with CHD or diabe tic patie nts with > or = 2 CHD risk facto rs. LDL-C is now calcu lated using the Alma Rosa n-Hop kins ronu monica n, which is a valid ated novel marileeo d cole jasso accur acy than the [employer] jamie equat ion in the estim ation of LDL-C . Alma Rosa tsang SS et al. BRANDI. 2013; 310(1 9): 2061- 2068 (http ://ed ucati on.Qu [employer]. com/f aq/FA Q164) Not Available [address] , [place], [address], 03/02/2025 20:30:00 03/02/20 25 03/02/2025 LIPID PANEL , STAND DIANE chol/HDLC ratio 2.4 (calc ) <5.0 normal Not Available [address] [place], [address], 03/02/2025 20:30:00 03/02/20 25 03/02/2025 LIPID PANEL , STAND DIANE non HDL cholesterol 78 mg/dL _(asher c) <130 normal For patie nts with diabe yisel plus 1 major ASCVD risk facto r, treat ing to a non-H DL-C goal of <100 mg/dL (LDL- C of <70 mg/dL ) is consi dered a thera peuti c optio n. Not Available [address], [address], 03/02/2025 20:30:00 03/02/20 25 03/02/2025 COMPR EHENS LEANA METAB OLIC PANEL glucose 88 mg/dL 65-99 normal Fasti ng refer ence inter karla Not Available [address], [address], 03/02/2025 20:30:02 03/02/20 25 03/02/2025 COMPR EHENS LEANA METAB OLIC PANEL urea nitrogen (BUN) 17 mg/dL 7-25 normal Not Available [address], [address], 03/02/2025 20:30:02 03/02/20 25 03/02/2025 COMPR EHENS LEANA METAB OLIC PANEL creatinine 0.66 mg/dL 0.50-1 .05 normal Not Available [address], [address], 03/02/2025 20:30:02 03/02/20 25 03/02/2025 COMPR EHENS LEANA METAB OLIC PANEL eGFR 99 mL/mi n/1.7 3m2 > or = 60 normal Not Available [address], [address], 03/02/2025 20:30:02 03/02/20 25 03/02/2025 COMPR EHENS LEANA METAB OLIC PANEL BUN/creatini ne ratio SEE NOTE: (calc ) 6-22 Not Repor kaur: BUN and Creat inine are withi n refer ence range . Not Available [address], [address], 03/02/2025 20:30:02 03/02/20 25 03/02/2025 COMPR EHENS LEANA METAB OLIC PANEL sodium 141 mmol/ L 135-14 6 normal Not Available [address], [address], 03/02/2025 20:30:02 03/02/20 25 03/02/2025 COMPR EHENS LEANA METAB OLIC PANEL potassium 3.9 mmol/ L 3.5-5. 3 normal Not Available [address], [address], 03/02/2025 20:30:02 03/02/20 25 03/02/2025 COMPR EHENS LEANA METAB OLIC PANEL chloride 103 mmol/ L 98-110 normal Not Available [address], [address], 03/02/2025 20:30:02 03/02/20 25 03/02/2025 COMPR EHENS LEANA METAB OLIC PANEL carbon dioxide 32 mmol/ L 20-32 normal Not Available [address], [address], 03/02/2025 20:30:02 03/02/20 25 03/02/2025 COMPR EHENS LEANA METAB OLIC PANEL calcium 9.6 mg/dL 8.6-10 .4 normal Not Available [address], [address], 03/02/2025 20:30:02 03/02/20 25 03/02/2025 COMPR EHENS LEANA METAB OLIC PANEL protein, total 6.7 g/dL 6.1-8. 1 normal Not Available [address], [address], 03/02/2025 20:30:02 03/02/20 25 03/02/2025 COMPR EHENS LEANA METAB OLIC PANEL albumin 4.5 g/dL 3.6-5. 1 normal Not Available [address], [address], 03/02/2025 20:30:02 03/02/20 25 03/02/2025 COMPR EHENS LEANA METAB OLIC PANEL globulin 2.2 g/dL_ (calc ) 1.9-3. 7 normal Not Available [address], [address], 03/02/2025 20:30:02 03/02/20 25 03/02/2025 COMPR EHENS LEANA METAB OLIC PANEL albumin/glob ulin ratio 2.0 (calc ) 1.0-2. 5 normal Not Available [address], [address], 03/02/2025 20:30:02 03/02/20 25 03/02/2025 COMPR EHENS LEANA METAB OLIC PANEL bilirubin, total 0.7 mg/dL 0.2-1. 2 normal Not Available [address], [address], 03/02/2025 20:30:02 03/02/20 25 03/02/2025 COMPR EHENS LEANA METAB OLIC PANEL alkaline phosphatase 62 U/L 37-153 normal Not Available [address], [address], 03/02/2025 20:30:02 03/02/20 25 03/02/2025 COMPR EHENS LEANA METAB OLIC PANEL AST 19 U/L 10-35 normal Not Available [address], [address], 03/02/2025 20:30:02 03/02/20 25 03/02/2025 COMPR EHENS LEANA METAB OLIC PANEL ALT 20 U/L 6-29 normal Not Available [address], [address], 03/02/2025 20:30:02 03/02/20 25 03/02/2025 CBC (INCL UDES DIFF/ PLT) white blood cell count 5.2 thous and/u L 3.8-10 .8 normal Not Available [address], [address], 03/02/2025 20:30:04 03/02/20 25 03/02/2025 CBC (INCL UDES DIFF/ PLT) red blood cell count 4.46 mary on/uL 3.80-5 .10 normal Not Available [address], [address], 03/02/2025 20:30:04 03/02/20 25 03/02/2025 CBC (INCL UDES DIFF/ PLT) hemoglobin 13.9 g/dL 11.7-1 5.5 normal Not Available [address], [address], 03/02/2025 20:30:04 03/02/20 25 03/02/2025 CBC (INCL UDES DIFF/ PLT) hematocrit 42.2 % 35.0-4 5.0 normal Not Available [address], [address], 03/02/2025 20:30:04 03/02/20 25 03/02/2025 CBC (INCL UDES DIFF/ PLT) MCV 94.6 fL 80.0-1 00.0 normal Not Available [address], [address], 03/02/2025 20:30:04 03/02/20 25 03/02/2025 CBC (INCL UDES DIFF/ PLT) MCH 31.2 pg 27.0-3 3.0 normal Not Available [address], [address], 03/02/2025 20:30:04 03/02/20 25 03/02/2025 CBC (INCL UDES DIFF/ PLT) MCHC 32.9 g/dL 32.0-3 6.0 normal For adult s, a sligh t decre ase in the calcu lated MCHC value (in the range of 30 to 32 g/dL) is most likel y not clini taniya signi nik t; melvina er, it shoul d be inter prete d with cauti on in corre [facility] n with other red cell gustavo eters and the patie nt's clini asher condi tion. Not Available [address], [address], 03/02/2025 20:30:04 03/02/20 25 03/02/2025 CBC (INCL UDES DIFF/ PLT) RDW 12.3 % 11.0-1 5.0 normal Not Available [facility] [address], [address], 03/02/2025 20:30:04 03/02/20 25 03/02/2025 CBC (INCL UDES DIFF/ PLT) platelet count 166 thous and/u L 140-40 0 normal Not Available [address], [address], 03/02/2025 20:30:04 03/02/20 25 03/02/2025 CBC (INCL UDES DIFF/ PLT) MPV 11.5 fL 7.5-12 .5 normal Not Available [address], [address], 03/02/2025 20:30:04 03/02/20 25 03/02/2025 CBC (INCL UDES DIFF/ PLT) absolute neutrophils 2985 cells /uL 1500-7 800 normal Not Available [facility] [address], [address], 03/02/2025 20:30:04 03/02/20 25 03/02/2025 CBC (INCL UDES DIFF/ PLT) absolute lymphocytes 1732 cells /uL 850-39 00 normal Not Available [facility] [address], [address], 03/02/2025 20:30:04 03/02/20 25 03/02/2025 CBC (INCL UDES DIFF/ PLT) absolute monocytes 312 cells /uL 200-95 0 normal Not Available [facility] [address], [address], 03/02/2025 20:30:04 03/02/20 25 03/02/2025 CBC (INCL UDES DIFF/ PLT) absolute eosinophils 130 cells /uL 15-500 normal Not Available [facility] [address], [address], 03/02/2025 20:30:04 03/02/20 25 03/02/2025 CBC (INCL UDES DIFF/ PLT) absolute basophils 42 cells /uL 0-200 normal Not Available [facility] [address], [address], 03/02/2025 20:30:04 03/02/20 25 03/02/2025 CBC (INCL UDES DIFF/ PLT) neutrophils 57.4 % normal Not Available [facility] [address], [address], 03/02/2025 20:30:04 03/02/20 25 03/02/2025 CBC (INCL UDES DIFF/ PLT) lymphocytes 33.3 % normal Not Available [address], [address], 03/02/2025 20:30:04 03/02/20 25 03/02/2025 CBC (INCL UDES DIFF/ PLT) monocytes 6.0 % normal Not Available [facility] [address], [address], 03/02/2025 20:30:04 03/02/20 25 03/02/2025 CBC (INCL UDES DIFF/ PLT) eosinophils 2.5 % normal Not Available [facility] [address], [address], 03/02/2025 20:30:04 03/02/20 25 03/02/2025 CBC (INCL UDES DIFF/ PLT) basophils 0.8 % normal Not Available [address], [address], 03/02/2025 20:30:04 03/02/20 25 03/02/2025 T4, FREE T4, free 1.5 NG/dL 0.8-1. 8 normal Not Available [facility] [address] [place] [address], [address], 03/02/2025 20:30:05 03/02/20 25 03/02/2025 TSH TSH 0.26 mIU/L 0.40-4 .50 low Not Available [address], [address], 03/02/2025 20:30:06 12/18/19 24 12/11/2023 US, doppl er, venou s No observ ation record ed. [email or web address] Not Available 2023 11:05:54 12/18/19 24 US, doppl er, venou s No observ ation record ed. [email or web address] Not Available 2023 11:05:54 08/20/20 24 08/19/2024 MAMMO , scree ann, bilat eral No observ ation record ed. [email or web address] [facility] [address], [place], [address], 08/20/2024 08:41:01 08/20/20 24 08/19/2024 MAMMO , scree ann, bilat eral No observ ation record ed. [email or web address] [facility] [address], [place], [address], 08/20/2024 08:41:19 10/28/19 25 10/28/2024 elect romyo gram + nerve condu ction study No observ ation record ed. [email or web address] [place], [place] [address] [address], [place], [address], 10/28/2024 16:24:03 Result Notes None recorded. Problems Name Problem SNOMED Code Status Onset Date Resolution Date Notes Provider Name and Address Organization Details Recorded Time Vascular headache 770152735 Active 2017 Not Available [facility] 3 11:34:24 Hyperchole sterolemia 42520702 Active Not Available [facility] 3 11:34:24 Senile osteoporos is 96216441 Active 2021 Not Available [facility] 3 11:34:24 Gastroesop hageal reflux disease 417915573 Active Not Available [facility] 3 11:34:24 Right lower quadrant pain 352902120 Active Not Available [facility] 3 11:34:24 Enthesopat hy of hip region 56391317 Active Not Available [facility] 3 11:34:24 Vaginal dryness 33332691 Active Not Available [facility] 3 11:34:24 Closed fracture of lateral malleolus 82815532 Active Not Available [facility] 3 11:34:24 Vitamin D deficiency 46907745 Active 2021 Not Available [facility] 3 11:34:24 Depressive disorder 89383782 Active Not Available [facility] 3 11:34:24 Hirsutism 869071270 Active Not Available [facility] 3 11:34:24 Hypothyroi dism 78935499 Active Not Available [facility] 3 11:34:24 Fracture of lower leg 214561548 Active Not Available [facility] 3 11:34:24 Essential hypertensi on 46600642 Active Not Available [facility] 3 11:34:24 Obesity 549545231 Active 2022 Not Available [facility] 3 11:34:24 Pain of left hip joint 1129039035042 00 Active 2022 Not Available [facility] 3 11:34:24 Herpes zoster ophthalmic us 32900067 Active 2022 Not Available [facility] 3 11:34:24 Obese class I 3458267423736 07 Active 2022 Not Available [facility] 3 11:34:24 Acute sinusitis 79101697 Active 2022 Not Available [facility] 3 11:34:24 Edema of lower extremity 307744852 Active 2023 Helen Do jennifer, [facility] 4 16:04:31 Numbness of hand 436757422 [facility] 16:30[facility]58 Problem Notes None recorded. Procedures Surgical History Date Name Laterality Status Provider Name and Address Organization Details Recorded Time Hysterectomy completed Juliaselma Carlson ABDOULAYEMaira [facility] 04/01/2023 15:05:54 Sinus Surgery completed Julia Aldo Maira [facility] 04/01/2023 15:06:17 Knee Surgery completed Julia Aldo Maira [facility] 04/01/2023 15:06:24 Imaging Results None recorded. Procedure Notes None recorded. Medical Equipment None Reported. Allergies Allergen ID Allergen Name Allergen Category Reaction Reaction Severity Criticality Documentation Date Start Date Code Code System Note Provider Name and Address Organization Details Recorded Time 45540 Toprol medicatio n other Not available Not available 12/19/2022 90353 5 RxNorm edema RANJANA Loza, [facility] 5 10:57:07 35626 Substance with sulfonami de structure and antibacte rial mechanism of action (substanc e) medicatio n rash Not available Not available 12/19/2022 02909 8003 SNOMED Not Available [facility] 3 07:42:53 23157 Product containin g penicilli n (product) medicatio n rash Not available Not available 12/19/2022 40317 8001 SNOMED Not Available [facility] 3 07:42:53 Medications Name Sig Start Date Stop Date Status Note LastModified by Organization Details LastModified Time cyclobenzap rine 10 mg tablet Take 1 tablet three times daily active Not Available Not Available No t Available doxycycline hyclate 100 mg capsule TAKE 1 CAPSULE BY MOUTH TWICE A DAY 03/01 completed Not Available Not Available Not Available naproxen 375 mg tablet Take 1 tablet twice a day by oral route. active Not Available Not Available No t Available citalopram 40 mg tablet TAKE 1 TABLET BY MOUTH ONCE DAILY active Not Available Not Available No t Available azithromyci n 250 mg tablet TAKE 2 TABLETS BY MOUTH TODAY, THEN TAKE 1 TABLET DAILY FOR 4 DAYS DIRECTED 03/01 completed Not Available Not Available Not Available ofloxacin 0.3 % eye drops 01/26 completed Not Available Not Available Not Available benzonatate 200 mg capsule TAKE 1 CAPSULE BY MOUTH THREE TIMES A DAY 03/30 completed Not Available Not Available Not Available metoprolol succinate ER 50 mg tablet,exte nded release 24 hr TAKE 1 TABLET BY MOUTH EVERY DAY active Not Available Not Available No t Available valacyclovi r 1 gram tablet TAKE 1 TABLET BY MOUTH THREE TIMES A DAY 03/01 completed Not Available Not Available Not Available ondansetron HCl 4 mg tablet Take 1 tablet 4 times a day by oral route as needed. 01/30 completed Not Available Not Available Not Available Medrol (Raul) 4 mg tablets in a dose pack use as directed 11/04 completed Not Available Not Available Not Available felodipine ER 5 mg tablet,exte nded release 24 hr TAKE 1 TABLET BY MOUTH DAILY 11/30 completed Not Available Not Available Not Available clindamycin HCl 150 mg capsule TAKE 2 CAPSULES BY MOUTH ONCE EVERY 6 HOURS UNTIL ALL GONE 01/30 completed Not Available Not Available Not Available promethazin e 6.25 mg-codeine 10 mg/5 mL syrup Take 5 ML EVERY 6 HOURS by oral route PRN for cough 01/26 completed Not Available Not Available Not Available Ciloxan 0.3 % eye drops Instill 1 DROP EVERY 2 HOURS while awake active Not Available Not Available No t Available aspirin 81 mg tablet,vernon yed release Take 1 tablet every day by oral route. 03/28 completed Not Available Not Available Not Available Macrobid 100 mg capsule Take 1 capsule as needed by oral route for 1 day. 09/01 completed Not Available Not Available Not Available levothyroxi ne 100 mcg tablet TAKE 1 TABLET BY MOUTH DAILY 02/06 completed Not Available Not Available Not Available levothyroxi ne 88 mcg tablet TAKE 1 TABLET BY MOUTH DAILY 2024 active Not Available Not Available Not Avai lable alprazolam 0.25 mg tablet TAKE 1 TABLET BY MOUTH THREE TIMES A DAY active Not Available Not Available No t Available prednisolon e acetate 1 % eye drops,suspe nsion APPLY 1 DROP INTO BOTH EYES TWICE A DAY 01/30 completed Not Available Not Available Not Available Vitamin C 1,000 mg tablet Take 1 tablet every day by oral route. 03/28 completed Not Available Not Available Not Available dexamethaso ne 2 mg tablet One Tablet TID for 3 Days One Tablet BID for 3 Days One Table once daily 3 days active Not Available Not Available No t Available hydrocodone 7.5 mg-acetamin ophen 325 mg tablet Take 1 tablet every 6 hours by oral route. active Not Available Not Available No t Available oseltamivir 75 mg capsule TAKE 1 CAPSULE BY MOUTH TWICE A DAY 03/01 completed Not Available Not Available Not Available Cipro 500 mg tablet Take 1 tablet twice a day by oral route for 10 days. 09/25 completed Not Available Not Available Not Available tobramycin 0.3 % eye drops Instill 1 drop(s) EVERY 4 HOURS by ophthalmi c route. active Not Available Not Available No t Available diclofenac sodium 75 mg tablet,vernon yed release TAKE 1 TABLET BY MOUTH TWICE A DAY 11/30 completed Not Available Not Available Not Available felodipine ER 10 mg tablet,exte nded release 24 hr half tablet daily active Not Available Not Available No t Available hydrochloro thiazide 25 mg tablet TAKE 1 TABLET BY MOUTH ONCE DAILY active Not Available Not Available No t Available Levaquin 500 mg tablet Take 1 tablet every 24 hours by oral route. 07/13 completed Not Available Not Available Not Available Transderm-S microscopist 1 mg over 3 days transdermal patch Apply 1 patch every 72 hours by transderm al route. 06/16 completed Not Available Not Available Not Available azelastine 137 mcg (0.1 %) nasal spray USE 2 SPRAYS INTO EACH NOSTRIL TWICE A DAY 2023 active Not Available Not Available Not Avai lable gentamicin 0.3 % (3 mg/gram) eye ointment APPLY A SMALL AMOUNT (1/2 INCH) TO THE LOWER LID OF THE AFFECTED EYE(S) BY OPHTHALMI C ROUTE 2 TIMES PER DAY 12/02 completed Not Available Not Available Not Available cefdinir 300 mg capsule Take 1 capsule every 12 hours by oral route. active Not Available Not Available No t Available fluticasone propionate 50 mcg/actuati on nasal spray,suspe nsion USE 2 SPRAYS INTO EACH NOSTRIL ONCE DAILY active Not Available Not Available No t Available Ambien 5 mg tablet Take 1 TABLET EVERY DAY by oral route HS PRN for sleep active Not Available Not Available No t Available metronidazo le 0.75 % topical gel APPLY 1 APPLICATI ON ONTO THE FACE TWICE DAILY 11/30 completed Not Available Not Available Not Available doxycycline hyclate 100 mg tablet TAKE 1 TABLET BY MOUTH TWICE A DAY 01/28 completed Not Available Not Available Not Available Estrace 0.01% (0.1 mg/gram) vaginal cream Insert 1 g 3 times a week by vaginal route for 90 days. 07/13 completed Not Available Not Available Not Available Blood Glucose Test strips ONE TOUCH VERIO TEST STRIPS TEST ONCE DAILY 03/28 completed Not Available Not Available Not Available Vigamox 0.5 % eye drops 01/26 completed Not Available Not Available Not Available Premarin 0.625 mg/gram vaginal cream Insert 1 g twice a week by vaginal route for 90 days. 11/04 completed Not Available Not Available Not Available rosuvastati n 20 mg tablet TAKE 1 TABLET BY MOUTH EVERY DAY active Not Available Not Available No t Available Crestor 10 mg tablet Take 1 tablet every day by oral route. 01/26 completed Not Available Not Available Not Available Prilosec OTC 20 mg tablet,vernon yed release one daily for heartburn 2012 active Not Available Not Available Not Avai lable Multivitami n 50 Plus tablet Take 1 tablet every day by oral route. 03/28 completed Not Available Not Available Not Available alprazolam 0.25 mg disintegrat ing tablet Take 1 tablet 3 times a day by oral route. 2016 active Not Available Not Available Not Avai lable amlodipine 2.5 mg once daily 03/17 completed Not Available Not Available Not Available multivitami n once daily 01/29 completed Not Available Not Available Not Available Calcium 500 2014 active Not Available Not Available Not Avai lable Vitamin B12 active Not Available Not A vailable Not Available Premarin 11/04 completed Not Available Not Available Not Available Xopenex HFA two puff four times a day 2012 active Not Available Not Available Not Avai lable Durezol 0.05 % eye drops 01/26 completed Not Available Not Available Not Available Vitamin D3 125 mcg (5,000 unit) tablet Take 1 tablet every day by oral route. 12/02 completed Not Available Not Available Not Available ergocalcife rol (vitamin D2) 50 mcg (2,000 unit) tablet 09/07 completed Not Available Not Available Not Available Ilevro 0.3 % eye drops,suspe nsion 01/26 completed Not Available Not Available Not Available Flonase Sensimist 27.5 mcg/actuati on nasal spray,suspe nsion USE 2 SPRAYS IN EACH NOSTRIL ONCE DAILY 03/04 completed Not Available Not Available Not Available Zepbound 2.5 mg/0.5 mL subcutaneou s pen injector INJECT THE CONTENTS OF 1 PEN UNDER THE SKIN ONCE WEEKLY X4 WEEKS 03/01 completed Not Available Not Available Not Available Vitals Date Recorded Body height Body mass index (BMI) Body weight Heart rate Oxygen saturation Oxygen saturation in Arterial blood by Pulse oximetry Systolic blood pressure Diastolic blood pressure Provider Name and Address Organization Details Last Updated DateTime 5 160.02 cm 28.5 kg/m2 17767.3 7 g 60 /min 99 % 99 % 120 mm[Hg] 80 mm[Hg] Laly Sánchez CMA [place] [facility] [employer] 5 17:06:50 Date Recorded Body height Body mass index (BMI) Body weight Heart rate Body temperature Oxygen saturation Oxygen saturation in Arterial blood by Pulse oximetry Systolic blood pressure Diastolic blood pressure Provider Name and Address Organization Details Last Updated DateTime 4 160.02 cm 32.6 kg/m2 13911 g 64 /min 97.6 [degF] 98 % 98 % 130 mm[Hg] 88 mm[Hg] JEREMY Evans [place] [facility] [employer] [facility] 4 15:39:16 Date Recorded Body height Body mass index (BMI) Body weight Heart rate Body temperature Oxygen saturation Oxygen saturation in Arterial blood by Pulse oximetry Systolic blood pressure Diastolic blood pressure Provider Name and Address Organization Details Last Updated DateTime 5 160.02 cm 27.8 kg/m2 71261 g 63 /min 97 [degF] 98 % 98 % 174 mm[Hg] 90 mm[Hg] Margaret Freitas [facility] [employer] [facility] 5 15:31:24 Date Recorded Body height Body mass index (BMI) Body weight Heart rate Body temperature Oxygen saturation Oxygen saturation in Arterial blood by Pulse oximetry Systolic blood pressure Diastolic blood pressure Provider Name and Address Organization Details Last Updated DateTime 4 160.02 cm 31 kg/m2 16371.6 6 g 68 /min 97.4 [degF] 97 % 97 % 132 mm[Hg] 86 mm[Hg] Alma Rosa Esqueda Maira [place] [facility] [employer] [facility] 4 16:13:53 Date Recorded Body height Body mass index (BMI) Body weight Heart rate Body temperature Oxygen saturation Oxygen saturation in Arterial blood by Pulse oximetry Systolic blood pressure Diastolic blood pressure Provider Name and Address Organization Details Last Updated DateTime 4 160.02 cm 30.6 kg/m2 60712.4 8 g 71 /min 97 [degF] 96 % 96 % 128 mm[Hg] 82 mm[Hg] Alma Rosa Esqueda Maira [place] [facility] [employer] [facility] 4 16:52:31 Social History Question Answer Notes LastModified by [employer] Details LastModified Time Tobacco Smoking Status Never Smoker Not Available [facility] 12/19/2022 07:27:41 In The 14 Days Before Symptom Onset, Have You Had Close Contact With A Laboratory-confirm ed COVID-19 While That Case Was Ill? No [id number] Information not available 12/19/2022 In The 14 Days Before Symptom Onset, Have You Had Close Contact With A Person Who Is Under Investigation For COVID-19 While That Person Was Ill? No [id number] Information not available 12/19/2022 Sex: Unknown Functional Status Question Answer Note LastModified by [employer] Details LastModified Time What is your level of alcohol consumption? Occasional [id number] Information not available 12/19/2022 Mental Status None recorded. Family History Relationship Description Onset Age of this Age Resolved Age Notes LastModified by Organization Details LastModified Time Father No current problems or disability [id number] Not available 12/19/2022 07:28:39 Mother No current problems or disability [id number] Not available 12/19/2022 07:28:39 Notes:Mother 80 good health AFIB, Early Dementia Father 73 good hypertension, early dementia and Type II DM One brother living and good health. Medical History Condition Response NERVE DISEASE N BLINDNESS N RHEUMATIC FEVER N KIDNEY STONES N BLADDER PROBLEMS N MRSA N OTHER # 1 N POLIO N LUNG DISEASE/DISORDER N HISTORY OF DRUG ABUSE N COPD N RADIATION / CHEMOTHERAPY N Other # 2 N BLOOD DISEASES N EAR OR HEARING PROBLEMS N MUMPS N SHINGLES N BOWEL PROBLEMS N DEPRESSION (INCLUDING POST ) Y STROKE/TIA N ULCERS N BENIGN PROSTATIC HYPERPLASIA N MEASLES N HYPOTENSION N MYOCARDIAL INFARCTION N OBESITY N GERD/NAUSEA N ANEURYSM N URINARY/BLADDER/KIDNEY PROBLEMS N CORONARY ARTERY DISEASE (CAD) N ADDICTION CONCERNS N ENDOMETRIOSIS N Impotence N USE OF BLOOD THINNERS N SKIN PROBLEMS N GASTROINTESTINAL DISORDER N PARATHYROID DISEASE N PERIPHERAL VASCULAR DISEASE N MUSCLE,JOINT OR BONE PROBLEMS N GASTROINTESTINAL BLEEDING N BLOOD CLOTS N ASTHMA N CATARACTS N ERECTILE DYSFUNCTION N VARICOSITIES N GI PROBLEMS N CHF N Low Testosterone N INFERTILITY N AIDS/HIV N FRACTURES N CHEMOTHERAPY / RADIATION N LIVER DISEASE N MALE HYPOGONADISM N HYPERTENSION Y Deficiency N TOURETTE'S N ANXIETY DISORDER N BLOOD TRANSFUSION N ANEMIA/BLOOD DISORDER N CHRONIC EAR INFECTIONS N BRONCHITIS N TUBERCULOSIS N GLAUCOMA N FOOT PROBLEM N DIVERTICULITIS N CHICKENPOX N SLEEP APNEA N ALLERGIES/HAYFEVER N INFECTIOUS DISEASE N HEART ARRHYTHMIA N PROSTATE N INSOMNIA N HIGH CHOLESTEROL / HYPERLIPIDEMIA Y HYPERTHYROIDISM N EYE PROBLEMS N EDEMA N CHRONIC PAIN SYNDROME N HYPOTHYROIDISM Y CAROTID BLOCKAGE N CONSTIPATION N BACK / NECK PROBLEMS N HAVE YOU BEEN HOSPITALIZED OR SEEN IN [facility] IN THE PAST YEAR ? N ATHEROSCLEROSIS N BREAST PROBLEMS N DIALYSIS N ECZEMA N HISTORY WITH COMPLICATIONS WITH ANESTHES IA ? N OSTEOPOROSIS N ARTHRITIS N NO SIGNIFICANT PAST MEDICAL HISTORY N APPENDICITIS N DIABETES, TYPE N BAD TEETH N ENT N SEASONAL ALLERGIES Y HEARTBURN / REFLUX Y AUTISM SPECTRUM DISORDER (ASD) N HEPATITIS / LIVER DISEASE N GOUT N SLEEP DISORDER N ALZHEIMER'S DISEASE N Brain Problems N HERPES N DEMENTIA N HEADACHES/MIGRAINES N SEIZURES/EPILEPSY N VASCULAR DISEASE N PACEMAKER N Blood Disorder N DIZZINESS N HEART DISEASE/HEART PROBLEMS N KIDNEY DISEASE N MULTIPLE SCLEROSIS N CARDIAC ARRHYTHMIA N CANCER: SPECIFY N ANESTHESIA COMPLICATIONS N ATRIAL FIBRILLATION N Gall Stones N PULMONARY EMBOLISM N AUTOIMMUNE DISEASE N Gynecological HistoryNo gynecological history recorded. Obstetrics History GPAL:G 0 P 0 0 0 0 Immunizations Vaccine Type Date Status Note Provider Nam e and Address Organization Details Recorded Time influenza nasal, unspecified formulation 3 completed Laly Sánchez [employer] null, [facility] 08/05/2023 16:41:32 zoster recombinant 4 completed JEREMY Evans null, [facility] 08/11/2024 11:44:41 RSV, recombinant, protein subunit RSVpreF, adjuvant reconstituted, 0.5 mL, PF 4 completed JEREMY Evans null, [facility] 08/11/2024 11:45:36 zoster recombinant 4 completed JEREMY Evans null, [facility] 10/19/2024 09:44:26 Influenza, split virus, trivalent, preservative 3 completed Not Available [facility] 12/19/2022 07:42:34 SARS-COV-2 (COVID-19) vaccine, UNSPECIFIED 1 completed Not Available [facility] 12/19/2022 07:42:34 Influenza, split virus, quadrivalent, preservative 9 completed Not Available [facility] 12/19/2022 07:42:34 Influenza, split virus, quadrivalent, PF 8 completed Not Available [facility] 12/19/2022 07:42:35 Influenza, split virus, quadrivalent, PF 2 completed Not Available [facility] 12/19/2022 07:42:35 Influenza, split virus, quadrivalent, PF 1 completed Not Available [facility] 12/19/2022 07:42:35 Influenza, split virus, quadrivalent, PF 0 completed Not Available [facility] 12/19/2022 07:42:35 Influenza, split virus, trivalent, PF 4 completed Ambrocio Leahy MD [address] [facility] [address], [place], [address], [facility] 08/03/2024 17:09:03 Past Encounters Encounter ID Performer Location Encounter Start Date Encounter Closed Date Diagnosis/Indication Diagnosis SNOMED-CT Code Diagnosis ICD10 Code Diagnosis Note [id number] Ambrocio Leahy MD [facility] Internal Med [facility] [address] [facility] [address] [place] [address] 01/30/2021 00:00:00 01/30/2021 11:36:58 [id number] Colton Alva MD [facility] [place] [address] [place] [address] 02/14/2021 00:00:00 02/14/2021 15:14:44 [id number] Ambrocio Leahy MD [facility] Internal Med [facility] [address] [facility] [address] [place] [address] 07/31/2021 00:00:00 07/31/2021 11:14:50 [id number] Ambrocio Leahy MD [facility] Internal Med [facility] [address] [facility] [address] [place] [address] 01/29/2022 00:00:00 01/29/2022 15:01:07 [id number] Ambrocio Leahy MD [facility] Internal Med [facility] [address] [address] 07/30/2022 00:00:00 07/30/2022 14:58:50 [id number] Ambrocio Leahy MD [facility] [address] [address] 01/28/2023 15:26:55 01/28/2023 15:55:51 Essential hypertension 51657903 I10 Hypercholesterolemia 136 65261 E78.00 Hypothyroidism 99982016 E03.9 Depressive disorder 3548 9007 F32.A Obesity 079894571 E66.9 Vitamin D deficiency 347 93027 E55.9 [id number] Lee Nichole MD [facility] [place] [address] [place] [address] 04/01/2023 14:40:37 04/01/2023 16:40:20 Pain of left hip joint 6445999851 58487 M25.552 [id number] Ambrocio Leahy MD [facility] [address] [place] [id number] 04/24/2023 14:27:21 04/24/2023 15:07:06 Adult health examination 556480980 Z00.00 Depression screening 171 713510 Z13.31 Essential hypertension 83919016 I10 Hypercholesterolemia 136 87337 E78.00 Hypothyroidism [address]10000 E03.[address] ophthalmicus 94517011 B02.30 Obese class I 8659436375 89595 E66.9 [id number] Ambrocio Leahy MD [facility] [address] [place] [address] 0 07/29/2023 15:22:02 07/29/2023 16:27:07 Essential hypertension 93464426 I10 Hypercholesterolemia 136 91032 E78.00 Hypothyroidism 33523126 E03.9 [id number] Ambrocio Leahy MD [facility] [address] [place] [id number] 12/02/2023 15:33:12 12/02/2023 16:20:06 Hypercholesterolemia 37272348 E78.00 Essential hypertension 17903947 I10 Gastroesop hageal reflux disease 494767436 K21.9 [id number] Ambrocio Leahy MD [facility] [address] [place] [id number] 03/30/2024 16:02:45 03/30/2024 17:05:43 Essential hypertension 09378179 I10 Gastroesop hageal reflux disease 624049624 K21.9 Hypercholesterolemia 136 35701 E78.00 Hypothyroidism 66824818 E03.9 Obese class I 1844700473 79054 E66.9 Depressive disorder 3548 9007 F32.A [id number] Ambrocio Leahy MD [facility] [address] [place] [address] 08/03/2024 16:44:44 08/03/2024 17:28:46 Administration of influenza vaccine 61066900 Z23 Adult [facility] th examination 541486094 Z00.00 Depression screening 171 512954 Z13.31 Essential hypertension 04474386 I10 Hypercholesterolemia 136 73910 E78.00 Hypothyroidism 69035928 E03.9 Obese class I 1351864063 83612 E66.9 [id number] Ambrocio Leahy MD [facility] [address] [address] 11/30/2024 16:52:27 11/30/2024 17:25:17 Essential hypertension 00048175 I10 Gastroesop hageal reflux disease 839944846 K21.9 Hypercholesterolemia 136 46237 E78.00 Hypothyroidism 81732692 E03.9 [id number] Ambrocio Leahy MD [facility] Internal Med [facility] [address] [address] 03/01/2025 15:15:55 03/01/2025 15:59:19 Essential hypertension 66328569 I10 Gastroesop hageal reflux disease 356748455 K21.9 Hypothyroidism 78355202 E03.9 Hypercholesterolemia 136 26808 E78.00 Health Concerns Section Related Observation LastModified by Organization Detai ls LastModified Time None Recorded Concern Status LastModified by Organization Details LastModified Time None Recorded Advance Directives Directive None Recorded Payers Encounter Date Sequence Insurance Name Policy Number Policy Grubbs Covered Member ID Grubbs Member ID Guarantor Name 12/02/2023 [facility] [id number] Lili Snell [id number] Lili Snell 03/30/[address] [place] [address] [id number] Lili Snell [id number] Lili Snell 08/03/[address] [place] [address] [id number] Lili Harmanley [id number] Lili Harmanley 11/30/[address] [place] [address] [id number] Lili Harmanley [id number] Lili Snell 03/01/[address] [place] [address] [id number] Lili Snell [id number] Lili Snell Notes Date Note Type Note Provider Name and Address Organization Details Recorded Time 12/02/19 24 text/htm l Patient Name: Lili Lomeli ChanningDate Of Service: Saturday ( 12.02.2023 ): 1960 Age: 63 There has been approximately a 6 lb weight gain since 07/29/2023. This represents approximately a 3.4% change in weight. Weight change attributable to lifestyle changes. Vital Signs:Blood Pressure: Sitting Rt. Arm 130/88Pulse: Sitting 64 /min and RegularRespiratory Rate: 12Height 63.5 in or 1.6 mWeight 184 lb or 83.5 kgBMI 32.1Temperature: 97.6 F or 36.4 CPulse Oximetry: 98 % at rest on no oxygen Chief Complaint: Addressed in HPI Problems or conditions discussed in the HPI were the only ones reviewed during the encounter.Only social and family history addressed in the HPI were reviewed during this encounter. Attendant(s): NoneConstitutional and Systemic Symptoms:none Medication Reconciliation: from medication list. Rancsbesquv46/05/2023: Herpes zoster of the left frontal area. 08-22-2023: Echocardiogram shows ejection fraction 65%. No significant valvular abnormalities are noted History of Present Illness #1. Essential Hypertension: Stage: Stage I Interval Neurological Complaints no headaches, dizziness, weakness, visual changes, ataxia, aphasia and apraxia. No shortness of breath, orthopnea or cardiovascular symptoms. No other symptoms related to end organ damage. Pressure has been under excellent control. Currently normal. No other end organ symptoms or findings. Therapy reviewed regarding management of hypertension and includes salt restriction and Hydrochlorothiazide and Metoprolol. #2. Type II Hypercholesterolaemia: Currently taking medication and tolerating well. No interval complaints of any muscle pain or arthralgia. No significant liver changes with medications. Last lipid panel: fair control. Therapy reviewed regarding treatment of cholesterol management and include diet and Crestor. #3. Hx of esophageal reflux currently stable. Hx of Complications: none The severity, duration and intensity of symptoms have improved. Frequency: infrequent Treatment consists medications taken on intermittent basis. Current therapy includes no medication. There has been no nausea, eructation, vomiting, hematemesis, dysphagia, velopharyngeal insufficiency and odynophagia. No change in he frequency or intensity of symptoms. Has had no melena. Has had some hematemesis . Discussed use of H2 antagonists NA. #4. Hx of obesity. Currently Class 1 Obesity BMI 30-34.99. Has tried numerous dietary support and supplements with no benefit. Instructed on the health consequences of the obese status particularly cancer - diabetes and heart disease. Discussed new modalities of weight loss including GLP-1 medications that are used to treat diabetes. Potential candidate for bariatric surgery: No. Wishes to be evaluated by Dietary: Yes. Active Medication ListFlonase 0.05 MG/SPRAY (SPRAY, METERED - NASAL) DailyHydrochlorothiazide 25 MG One Daily For Blood PressureSynthroid 88 UG TABLET One Daily For Thyroid ReplacementMetoprolol 50 MG TABLET, EXTENDED RELEASE Once DailyCelexa 40 MG (TABLET - ORAL) One Daily For AnxietyCrestor 20 MG (TABLET - ORAL) One DailyOs-asher D Twice A DayVitamin D 5000 MG DailyAzelastine Hydrochloride 0.137 MG/SPRAY (SPRAY, METERED - NASAL) DailyMultivitamin DailyVitamin C DailyXanax 0.25 MG (TABLET - ORAL) One Tid Prn For Anxiety Adverse Drug Reactions ReviewedSulfa Drugs RashPenicillin RashToprol Xl Swelling Vaccination and Vbnushzoskvp1178-46 Kxaoouglc4076-11 Covid 19 [employer] Oglvnwd0923-82 Right [place] Qdjkatotdi2050-62 Retinal Detachment (OS)1983-10 Jwgcwqffetwc4663-10 Tonsillectomy Preventative Testing Confirmed by Our Rhualcw9108/02/2023 ALBUMIN 4.5 G/DL N001/23/2023 MAMMOGRAM 4111/19/2021 DEXA SCAN07/21/2018 COLONOSCOPY (10 YEARS) 8011/11/2017 HAIC 5.8 % OF TOTAL HGB H003/11/2014 LAB TESTS ( LIPID05/11/2013 OPHTHALMOLOGY Social HistoryDoes not smoke. Drinks socially. Family HistoryMother 80 good health AFIB, Early DementiaFather 73 good hypertension, early dementia and Type II DMOne brother living and good health. Ambrocio Leahy MD [address] [facility], [facility] [address], [place], [address], [facility] [employer] 12/02/2023 15:58:19 03/30/20 24 text/htm l Patient Name: Lili SnellDate Of Service: Saturday ( 03.30.2024 ): 1960 Age: 63 There has been approximately a 9 lb weight loss since 12/02/2023. This represents approximately a 4.9% change in weight. Weight change attributable to lifestyle changes. Vital Signs:Blood Pressure: Sitting Rt. Arm 132/86Pulse: Sitting 68 /min and RegularRespiratory Rate: 12Height 63 in or 1.6 mWeight 175 lb or 79.4 kgBMI 31.0Temperature: 97.4 F or 36.3 CPulse Oximetry: 97 % at rest on no oxygen Chief Complaint: Addressed in HPI Problems or conditions discussed in the HPI were the only ones reviewed during the encounter.Only social and family history addressed in the HPI were reviewed during this encounter. Attendant(s): NoneConstitutional and Systemic Symptoms:none Medication Reconciliation: from medication list. Ffvcpwangzy95/05/2023: Herpes zoster of the left frontal area. 08-22-2023: Echocardiogram shows ejection fraction 65%. No significant valvular abnormalities are noted History of Present Illness #1. Essential Hypertension: Stage: Stage I Interval Neurological Complaints no headaches, dizziness, weakness, visual changes, ataxia, aphasia and apraxia. No shortness of breath, orthopnea or cardiovascular symptoms. No other symptoms related to end organ damage. Pressure has been under excellent control. Currently normal. No other end organ symptoms or findings. Therapy reviewed regarding management of hypertension and includes salt restriction and Metoprolol. #2. Type II Hypercholesterolaemia: Currently taking medication and tolerating well. No interval complaints of any muscle pain or arthralgia. No significant liver changes with medications. Last lipid panel: fair control. Therapy reviewed regarding treatment of cholesterol management and include diet and Crestor. #3. Hx of hypothyroidism currently stable. Heat intolerance: no Fatigue: no Weight gain: no Difficulty concentrating: no Muscle Symptoms: none Skin Texture: normal Skin Color: normal Currently taking synthroid. #4. Hx of esophageal reflux currently stable. Hx of Complications: none The severity, duration and intensity of symptoms have improved. Frequency: most meals Treatment consists medications taken on intermittent basis. Current therapy includes no medication. There has been no nausea, eructation, vomiting, hematemesis, dysphagia, velopharyngeal insufficiency and odynophagia. No change in he frequency or intensity of symptoms. Has had no melena. Has had no . Discussed use of H2 antagonists NA. #5. Hx of depression currently stable. Pharmacological treatment : Celexa and Xanax . Suicidal thoughts or ideas: None Loss of appetite: No Sleep Disturbance: No Hallucinations: No Is currently seeing no one. Discussed possibility of decreasing and weaning off medication. Feels that current regimen is working fine and wishes not to change the current treatment regimen. No contraindication to continue current therapy. #6. Hx of obesity. Currently Class 1 Obesity BMI 30-34.99. Has tried numerous dietary support and supplements with no benefit. Instructed on the health consequences of the obese status particularly cancer - diabetes and heart disease. Discussed other modalities of weight loss no. Potential candidate for bariatric surgery: No. Wishes to be evaluated by Dietary: No and was offered to be evaluated and instructed by machine repairer maintenance on weight loss diet. Active Medication ListFlonase 0.05 MG/SPRAY (SPRAY, METERED - NASAL) DailyHydrochlorothiazide 25 MG One Daily For Blood PressureSynthroid 88 UG TABLET One Daily For Thyroid ReplacementMetoprolol 50 MG TABLET, EXTENDED RELEASE Once DailyCelexa 40 MG (TABLET - ORAL) One Daily For AnxietyCrestor 20 MG (TABLET - ORAL) One DailyOs-asher D Twice A DayVitamin D 5000 MG DailyAzelastine Hydrochloride 0.137 MG/SPRAY (SPRAY, METERED - NASAL) DailyMultivitamin DailyVitamin C DailyXanax 0.25 MG (TABLET - ORAL) One Tid Prn For Anxiety Adverse Drug Reactions ReviewedSulfa Drugs RashPenicillin RashToprol Xl Swelling Vaccination and Wnbztunxfdqa8125-33 Opqajuylv0002-84 Covid 19 [employer] Dqizhxk2932-78 Right [address] [place] Gswbknxpwe9503-56 Retinal Detachment (OS)1983-10 Itictptmaudm1343-93 Tonsillectomy Preventative Kglgimo5602/04/2024 ALBUMIN 4.8 G/DL N001/23/2023 MAMMOGRAM 411/ DEXA SCAN07/21/2018 COLONOSCOPY (10 YEARS) HAIC 5.8 % OF TOTAL HGB H003/11/2014 LAB TESTS ( LIPID05/11/2013 OPHTHALMOLOGY Social HistoryDoes not smoke. Drinks socially. Family HistoryMother 80 good health AFIB, Early DementiaFather 73 good hypertension, early dementia and Type II DMOne brother living and good health. TEST RESULT RANGE UNITSCBC (INCLUDES DIFF/PLT) Date: 02/04/2024WHITE BLOOD CELL COUNT 5.1 3.8-10.8 THOUSAND/ULHEMOGLOBIN 15.1 11.7-15.5 G/DLHEMATOCRIT 46.6 35.0-45.0 %PLATELET COUNT 175 140-400 THOUSAND/ULCOMPREHENSIVE METABOLIC PANEL Date: 02/04/2024SODIUM 139 135-146 MMOL/LPOTASSIUM 3.9 3.5-5.3 MMOL/LGLUCOSE 105 65-99 MG/DLUREA NITROGEN (BUN) 21 7-25 MG/DLCREATININE 0.81 0.50-1.05 MG/DLEGFR 82 > OR = 60 ML/MIN/1.31Y1HUROVYMFG, TOTAL 0.5 0.2-1.2 MG/DLALKALINE PHOSPHATASE 69 37-153 U/LAST 19 10-35 U/LALT 17 6-29 U/LLIPID PANEL, STANDARD Date: 4CHOLESTEROL, TOTAL 127 <200 MG/DLHDL CHOLESTEROL 50 > OR = 50 MG/DLTRIGLYCERIDES 92 <150 MG/DLLDL-CHOLESTEROL 59 MG/DL (CALC)TSH+FREE T4 Date: 02/04/2024TSH 2.36 0.40-4.50 MIU/LT4, FREE 1.2 0.8-1.8 NG/DL Ambrocio Leahy MD [address] [facility], [facility] [address], [place], [address], [place] [facility] 03/30/2024 17:02:52 08/03/20 24 text/htm l Patient Name: Lili SnellMagdielte Of Service: Saturday ( 08.03.2024 ): 1960 Age: 63 There has been approximately a 2 lb weight loss since 03/30/2024. This represents approximately a 1.1% change in weight. Weight change attributable to lifestyle changes. Vital Signs:Blood Pressure: Sitting Rt. Arm 128/82Pulse: Sitting 71 /min and RegularRespiratory Rate: 16Height 63 in or 1.6 mWeight 173 lb or 78.5 kgBMI 30.6Temperature: 97 F or 36.1 CPulse Oximetry: 96 % at rest on no oxygen Chief Complaint: Addressed in HPI Problems or conditions discussed in the HPI were the only ones reviewed during the encounter.Only social and family history addressed in the HPI were reviewed during this encounter. Attendant(s): NoneConstitutional and Systemic Symptoms:none Medication Reconciliation: from medication list. Lnpmtroiewd50/05/2023: Herpes zoster of the left frontal area. 08-22-2023: Echocardiogram shows ejection fraction 65%. No significant valvular abnormalities are noted History of Present Illness In for a well patient check up. Last well patient evaluation was approximately one year. No interval complaints of any major medical problems. No hx of any chest pain, shortness of breath, nausea, vomiting, diarrhea or constitutional symptoms. Also being followed for other chronically monitored problems.Has Had A Mammogram dueHas Had A Pap Smear dueImmunizations Up To Date or refuses to takeNo Significant Change In Family HxColonoscopy or Cologuard: not dueFall Risk normalDepression Score: 0PHQ-9 Score [IndicatedHearing normalVision correctedReviewed Smoking and Drug HistoryReviewed Immunization HistoryInstructed on importance of weight on diabetes, heart and other diseases aggravated by obesity. #1. Essential Hypertension: Stage: Stage I Interval Neurological Complaints no headaches, dizziness, weakness, visual changes, ataxia, aphasia and apraxia. No shortness of breath, orthopnea or cardiovascular symptoms. No other symptoms related to end organ damage. Pressure has been under excellent control. Currently normal. No other end organ symptoms or findings. Therapy reviewed regarding management of hypertension and includes salt restriction and Hydrochlorothiazide and Metoprolol. #2. Type II Hypercholesterolaemia: Currently taking medication and tolerating well. No interval complaints of any muscle pain or arthralgia. No significant liver changes with medications. Last lipid panel: fair control. Therapy reviewed regarding treatment of cholesterol management and include diet and Crestor. #3. Hx of hypothyroidism currently stable. Heat intolerance: no Fatigue: no Weight gain: no Difficulty concentrating: no Muscle Symptoms: none Skin Texture: normal Skin Color: normal Currently taking synthroid. #4. Hx of obesity. Currently Class 1 Obesity BMI 30-34.99. Has tried numerous dietary support and supplements with no benefit. Instructed on the health consequences of the obese status particularly cancer - diabetes and heart disease. Discussed other modalities of weight loss no . Potential candidate for bariatric surgery: No. Wishes to be evaluated by Dietary: No and was offered to be evaluated and instructed by machine repairer maintenance on weight loss diet. Active Medication ListFlonase 0.05 MG/SPRAY (SPRAY, METERED - NASAL) DailyHydrochlorothiazide 25 MG One Daily For Blood PressureSynthroid 88 UG TABLET One Daily For Thyroid ReplacementMetoprolol 50 MG TABLET, EXTENDED RELEASE Once DailyCelexa 40 MG (TABLET - ORAL) One Daily For AnxietyCrestor 20 MG (TABLET - ORAL) One DailyOs-asher D Twice A DayVitamin D 5000 MG DailyAzelastine Hydrochloride 0.137 MG/SPRAY (SPRAY, METERED - NASAL) DailyMultivitamin DailyVitamin C DailyXanax 0.25 MG (TABLET - ORAL) One Tid Prn For Anxiety Adverse Drug Reactions ReviewedSulfa Drugs RashPenicillin RashToprol Xl Swelling Vaccination and Immunization( ) 2023- INFLUENZA(X) 2020- COVID 19 [employer] Gstposi2676-[address] Lhedtpnwir1858-16 Retinal Detachment (OS)1983-10 Jusfdjpczsrb1349-40 Tonsillectomy Preventative Testing( ) 02/04/2024 Albumin 4.8 G/DL N(X) 01/23/2023 Mammogram 01/24/2024( ) 09/19/2022 DEXA Scan 09/19/2024( ) 07/21/2018 Colonoscopy (10 Years) 07/21/2028( ) 11/11/2017 HAIC 5.8 % OF TOTAL HGB H( ) 03/11/2014 Lab Tests ( Lipid( ) 05/11/2013 Ophthalmology Social HistoryDoes not smoke. Drinks socially. Family HistoryMother 80 good health AFIB, Early DementiaFather 74 good hypertension, early dementia and Type II DMOne brother living and good health. TEST RESULT RANGE UNITSCBC (INCLUDES DIFF/PLT) Date: 02/04/2024WHITE BLOOD CELL COUNT 5.1 3.8-10.8 THOUSAND/ULHEMOGLOBIN 15.1 11.7-15.5 G/DLHEMATOCRIT 46.6 35.0-45.0 %PLATELET COUNT 175 140-400 THOUSAND/ULCOMPREHENSIVE METABOLIC PANEL Date: 02/04/2024SODIUM 139 135-146 MMOL/LPOTASSIUM 3.9 3.5-5.3 MMOL/LGLUCOSE 105 65-99 MG/DLUREA NITROGEN (BUN) 21 7-25 MG/DLCREATININE 0.81 0.50-1.05 MG/DLEGFR 82 > OR = 60 ML/MIN/1.08N7HNOBDDJFB, TOTAL 0.5 0.2-1.2 MG/DLALKALINE PHOSPHATASE 69 37-153 U/LAST 19 10-35 U/LALT 17 6-29 U/LLIPID PANEL, STANDARD Date: 4CHOLESTEROL, TOTAL 127 <200 MG/DLHDL CHOLESTEROL 50 > OR = 50 MG/DLTRIGLYCERIDES 92 <150 MG/DLLDL-CHOLESTEROL 59 MG/DL (CALC)TSH+FREE T4 Date: 02/04/2024TSH 2.36 0.40-4.50 MIU/LT4, FREE 1.2 0.8-1.8 NG/DL Ambrocio Leahy MD [address] [facility], [facility] [address], [place], [address], [facility] [email or web address] 08/03/2024 17:14:58 11/30/19 25 text/htm l Patient Name: Lili Fiorete Of Service: Saturday ( 11.30.2024 ): 1960 Age: 64 There has been approximately a 12 lb weight loss since 08/03/2024. This represents approximately a 6.9% change in weight. Weight change attributable to lifestyle changes. Vital Signs:Blood Pressure: Sitting Rt. Arm 120/80Pulse: Sitting 60 /min and RegularRespiratory Rate: 16Height 63 in or 1.6 mWeight 161 lb or 73.0 kgBMI 28.5Pulse Oximetry: 99 % at rest on no oxygen Chief Complaint: Addressed in HPI Problems or conditions discussed in the HPI were the only ones reviewed during the encounter.Only social and family history addressed in the HPI were reviewed during this encounter. Attendant(s): NoneConstitutional and Systemic Symptoms:none Medication Reconciliation: from medication list. Cdstkfuxlzd16/05/2023: Herpes zoster of the left frontal area. 08-22-2023: Echocardiogram shows ejection fraction 65%. No significant valvular abnormalities are noted History of Present Illness #1. Essential Hypertension: Stage: Stage I Interval Neurological Complaints no headaches, dizziness, weakness, visual changes, ataxia, aphasia and apraxia. No shortness of breath, orthopnea or cardiovascular symptoms. No other symptoms related to end organ damage. Pressure has been under excellent control. Currently normal. No other end organ symptoms or findings. Therapy reviewed regarding management of hypertension and includes salt restriction and Hydrochlorothiazide and Metoprolol. #2. Hx of esophageal reflux currently stable. Hx of Complications: none The severity, duration and intensity of symptoms have improved. Frequency: infrequent Treatment consists medications taken on intermittent basis. Current therapy includes no medication. There has been no nausea, eructation, vomiting, hematemesis, dysphagia, velopharyngeal insufficiency and odynophagia. No change in he frequency or intensity of symptoms. Has had no melena. Has had no . Discussed use of H2 antagonists NA. #3. Type II Hypercholesterolaemia: Currently taking medication and tolerating well. No interval complaints of any muscle pain or arthralgia. No significant liver changes with medications. Last lipid panel: excellent control. Therapy reviewed regarding treatment of cholesterol management and include diet and Crestor.#4. Hypothyroidism currently taking Synthroid doing well. No interval complaints of any other signs or symptoms of under active thyroid. Active Medication ListFlonase 0.05 MG/SPRAY (SPRAY, METERED - NASAL) DailyHydrochlorothiazide 25 MG One Daily For Blood PressureSynthroid 88 UG TABLET One Daily For Thyroid ReplacementMetoprolol 50 MG TABLET, EXTENDED RELEASE Once DailyCelexa 40 MG (TABLET - ORAL) One Daily For AnxietyCrestor 20 MG (TABLET - ORAL) One DailyOs-asher D Twice A DayVitamin D 5000 MG DailyAzelastine Hydrochloride 0.137 MG/SPRAY (SPRAY, METERED - NASAL) DailyMultivitamin DailyVitamin C DailyXanax 0.25 MG (TABLET - ORAL) One Tid Prn For Anxiety Adverse Drug Reactions ReviewedSulfa Drugs RashPenicillin RashToprol Xl Swelling Vaccination and Immunization( ) 2024-07 INFLUENZA(X) 2021-01 COVID 19 DELL & DELL( ) 2024-07 RSV( ) 2024-08 SHINGRIX Surgical [id number] [address] [id number] Retinal Detachment (OS)1983-10 [id number] Tonsillectomy Preventative Testing( ) 08/19/2024 Mammogram 08/19/2025( ) 08/05/2024 Albumin 4.7 G/DL N(X) 09/19/2022 DEXA Scan 09/19/2024( ) 07/21/2018 Colonoscopy (10 Years) 07/21/2028( ) 11/11/2017 HAIC 5.8 % OF TOTAL HGB H( ) 03/11/2014 Lab Tests ( Lipid( ) 05/11/2013 Ophthalmology Social HistoryDoes not smoke. Drinks socially. Family HistoryMother 80 good health AFIB, Early DementiaFather 73 good hypertension, early dementia and Type II DMOne brother living and good health. TEST RESULT RANGE UNITSCBC (INCLUDES DIFF/PLT) Date: 08/05/2024WHITE BLOOD CELL COUNT 4.5 3.8-10.8 THOUSAND/ULHEMOGLOBIN 14.4 11.7-15.5 G/DLHEMATOCRIT 44.2 35.0-45.0 %PLATELET COUNT 170 140-400 THOUSAND/ULCOMPREHENSIVE METABOLIC PANEL Date: 08/05/2024SODIUM 143 135-146 MMOL/LPOTASSIUM 4.2 3.5-5.3 MMOL/LGLUCOSE 83 65-99 MG/DLUREA NITROGEN (BUN) 19 7-25 MG/DLCREATININE 0.77 0.50-1.05 MG/DLEGFR 87 > OR = 60 ML/MIN/1.18W5AUMATCZ 10.0 8.6-10.4 MG/DLBILIRUBIN, TOTAL 0.5 0.2-1.2 MG/DLALKALINE PHOSPHATASE 60 37-153 U/LAST 20 10-35 U/LALT 20 6-29 U/LLIPID PANEL, STANDARD Date: 08/05/2024HOLESTEROL, TOTAL 122 <200 MG/DLHDL CHOLESTEROL 51 > OR = 50 MG/DLTRIGLYCERIDES 82 <150 MG/DLLDL-CHOLESTEROL 55 MG/DL (CALC)T4, FREE Date: 08/05/2024T4, FREE 1.6 0.8-1.8 NG/DLTSH Date: 08/05/2024TSH 0.59 0.40-4.50 MIU/L Ambrocio Leahy MD [address] [facility], [address], [place], [address], [facility] 11/30/2024 17:21:46 03/01/20 25 text/htm l Patient Name: Lili López Of Service: Saturday ( 03.01.2025 ): 1960 Age: 64 There has been approximately a 4 lb weight loss since 11/30/2024. This represents approximately a 2.5% change in weight. Weight change attributable to lifestyle changes. Vital Signs:Blood Pressure: Sitting Rt. Arm 174/90Pulse: Sitting 63 /min and RegularRespiratory Rate: 16Height 63 in or 1.6 mWeight 157 lb or 71.2 kgBMI 27.8Temperature: 97 F or 36.1 CPulse Oximetry: 98 % at rest on no oxygen Chief Complaint: Addressed in HPI Problems or conditions discussed in the HPI were the only ones reviewed during the encounter.Only social and family history addressed in the HPI were reviewed during this encounter. Attendant(s): NoneConstitutional and Systemic Symptoms:none Medication Reconciliation: from medication list. Alhynohkwsk57/05/2023: Herpes zoster of the left frontal area. 08-22-2023: Echocardiogram shows ejection fraction 65%. No significant valvular abnormalities are noted History of Present Illness #1. Essential Hypertension: Stage: Stage I Interval Neurological Complaints no headaches, dizziness, weakness, visual changes, ataxia, aphasia and apraxia. No shortness of breath, orthopnea or cardiovascular symptoms. No other symptoms related to end organ damage. Pressure has been under poor control. Currently elevated and instructed to recheck in office in two weeks. No other end organ symptoms or findings. Therapy reviewed regarding management of hypertension and includes salt restriction and Hydrochlorothiazide and Metoprolol. #2. Type II Hypercholesterolaemia: Currently taking medication and tolerating well. No interval complaints of any muscle pain or arthralgia. No significant liver changes with medications. Last lipid panel: fair control. Therapy reviewed regarding treatment of cholesterol management and include diet and Crestor. #3. Hx of hypothyroidism currently stable. Heat intolerance: no Fatigue: no Weight gain: no Difficulty concentrating: no Muscle Symptoms: none Skin Texture: normal Skin Color: normal Currently taking synthroid. #4. Hx of esophageal reflux currently stable. Hx of Complications: none The severity, duration and intensity of symptoms have improved. Frequency: most meals Treatment consists medications taken on intermittent basis. Current therapy includes no medication. There has been no nausea, eructation, vomiting, hematemesis, dysphagia, velopharyngeal insufficiency and odynophagia. No change in he frequency or intensity of symptoms. Has had no melena. Has had no . Discussed use of H2 antagonists NA. Active Medication ListFlonase 0.05 MG/SPRAY (SPRAY, METERED - NASAL) DailyHydrochlorothiazide 25 MG One Daily For Blood PressureSynthroid 88 UG TABLET One Daily For Thyroid ReplacementMetoprolol 50 MG TABLET, EXTENDED RELEASE Once DailyCelexa 40 MG (TABLET - ORAL) One Daily For AnxietyCrestor 20 MG (TABLET - ORAL) One DailyOs-asher D Twice A DayVitamin D 5000 MG DailyAzelastine Hydrochloride 0.137 MG/SPRAY (SPRAY, METERED - NASAL) DailyMultivitamin DailyVitamin C DailyXanax 0.25 MG (TABLET - ORAL) One Tid Prn For Anxiety Adverse Drug Reactions ReviewedSulfa Drugs RashPenicillin RashToprol Xl Swelling Vaccination and ImmunizationImmunizations and Vaccinations Discussed and Implemented if feasible In the Office. Else referred to pharmacies. ( ) 2024-07 INFLUENZA(X) 2020- COVID 19 DELL & DELL( ) 2024-07 RSV( ) 2024-08 SHINGRIX Surgical [id number] Bwwtddciwi5401-62 Retinal Detachment (OS)1983-10 Lmbypoaylodg7590-37 Tonsillectomy Preventative TestingPreventative Testing Discussed and Scheduled if Acceptable to Patient ( ) 08/19/2024 Mammogram 08/19/2025( ) 08/05/2024 Albumin 4.7 G/DL N(X) 09/19/2022 DEXA Scan 09/19/2024( ) 07/21/2018 Colonoscopy (10 Years) 07/21/2028( ) 11/11/2017 HAIC 5.8 % OF TOTAL HGB H( ) 03/11/2014 Lab Tests ( Lipid( ) 05/11/2013 Ophthalmology Social HistoryDoes not smoke. Drinks socially. Family HistoryMother 80 good health AFIB, Early DementiaFather 73 good hypertension, early dementia and Type II DMOne brother living and good health. TEST RESULT RANGE UNITSCBC (INCLUDES DIFF/PLT) Date: 10/16/2024WHITE BLOOD CELL COUNT 4.5 3.8-10.8 THOUSAND/ULHEMOGLOBIN 14.4 11.7-15.5 G/DLHEMATOCRIT 44.2 35.0-45.0 %PLATELET COUNT 170 140-400 THOUSAND/ULCOMPREHENSIVE METABOLIC PANEL Date: 08/05/2024SODIUM 143 135-146 MMOL/LPOTASSIUM 4.2 3.5-5.3 MMOL/LGLUCOSE 83 65-99 MG/DLUREA NITROGEN (BUN) 19 7-25 MG/DLCREATININE 0.77 0.50-1.05 MG/DLEGFR 87 > OR = 60 ML/MIN/1.63R3CQDFVIXYM, TOTAL 0.5 0.2-1.2 MG/DLALKALINE PHOSPHATASE 60 37-153 U/LAST 20 10-35 U/LALT 20 6-29 U/LLIPID PANEL, STANDARD Date: 4CHOLESTEROL, TOTAL 122 <200 MG/DLHDL CHOLESTEROL 51 > OR = 50 MG/DLTRIGLYCERIDES 82 <150 MG/DLLDL-CHOLESTEROL 55 MG/DL (CALC)TSH Date: 08/05/2024TSH 0.59 0.40-4.50 MIU/LT4, FREE Date: 08/05/2024T4, FREE 1.6 0.8-1.8 NG/DL Ambrocio Leahy MD [address] [facility], [facility] [address], [place], [address], [place] [facility] 03/01/2025 15:42:11 OBGyn Episode No OBEpisode recorded.
--- OUTSIDE RECORDS SUMMARY | 2025-03-22 07:55 | XMS_ITS | Encounter Summary ---
Author Organization [facility] Address [address] [place] [address] Care Team Providers Care Research Chief Engineer Name Role Phone Unavailable Primary Care Provider Unavailabl e Encounter Details Date Type Department Care Team (Late st Contact Info) Description 09/04/2023 Lab Requisition [facility] - DermPath Lab [address] [facility], [place] [phone] Terri Rojas DO [address] [facility] [address] DEPT [place] [address] Social History Tobacco Use Types Packs/Day Years Used Date Smoking Tobacco: Never Assessed Comments Unknown Sex and Gender Information Value Date Recorded Sex Assigned at Not on file Legal Sex Female 3:21 PM DIESEL ENGINEER Gender Identity Not on file Sexual Orientation Not on file documented as of this encounter Plan of Treatment Not on file documented as of this encounter Procedures Procedure Name Priority Date/Time Associated Diagnosis Comments DERMATOPATHOLOGY Routine 09/04/2023 2:19 PM DIESEL ENGINEER documented in this encounter Results * DERMATOPATHOLOGY (09/04/2023 2:19 PM DIESEL ENGINEER) Case Report Dermatopathology Report Case: [id number] Authorizing Provider: Terri Rojas DO Collected: 09/04/2023 02:19 PM Ordering Location: [facility] Derm[facility] Lab Received: 09/06/2023 09:07 AM Pathologist: Chloé Ndiaye MD Specimen: Skin, right shoulder 3 2:23 PM DIESEL ENGINEER DERMATOPATHOLOGY LABORATORY Final Diagnosis Specimen A. SKIN, right shoulder: COMPOUND MELANOCYTIC NEVUS (D22.61) 3 2:23 PM DIESEL ENGINEER DERMATOPATHOLOGY LABORATORY at 1423 DIESEL ENGINEER Clinical History IPN Irritated 11/20/202 3 2:23 PM [facility] DERMATOPATHOLOGY LABORATORY Gross Description Specimen A: Received is one formalin filled container labeled with the patient's name and designated right shoulder. The specimen consists of a shave biopsy measuring 5x4x2 mm. Jar 0. 3 2:23 PM [facility] DERMATOPATHOLOGY LABORATORY Microscopic Description Specimen A. SKIN, right shoulder: There are nests of melanocytes at the dermal-epidermal junction and within the dermis. 3 2:23 PM [facility] DERMATOPATHOLOGY LABORATORY Disclaimer An external and internal positive and negative controls are appropriate for the histochemical, immunohistochemical and immunofluorescence stain(s) in this case (if any), except where stated explicitly. The performance characteristics of the stain(s) cited in this report were developed and its performance characteristic determined by the Dermatopathology Laboratory at [facility], directed by Dr. Katie Dacosta. These tests need not be, and therefore are not, approved by the [place] Food and Drug Administration. The tests are used for clinical purposes. Billing Codes Specimen Charges Stain Charges 82163 1 3 2:23 PM [facility] DERMATOPATHOLOGY LABORATORY Embedded Images 3 2:23 PM [facility] DERMATOPATHOLOGY LABORATORY Pathology/Cytolo gy TISSUE SPECIMEN FROM SKIN / Unknown 09/04/2023 2:19 PM DIESEL ENGINEER 09/06/2023 9:07 AM DIESEL ENGINEER us Terri Rojas DO LAB - PATHOLOGY/CYTOLOGY ORDERABLES Final Result DERMATOPATHOLOGY LABORATORY [facility] - Department of Dermatology [address], [address] [phone] documented in this encounter Visit Diagnoses Not on filedocumented in this encounter
--- OUTSIDE RECORDS SUMMARY | 2025-03-22 07:55 | XMS_ITS | CONTINUITY OF CARE DOCUMENT ---
Author Name melani, melani Address Unknown Organization [facility] Address [address] [place] [address] Phone [phone] Care Team Providers Care Amortization Schedule Clerk Name Role Phone Hammad CONTRERAS, Giulia Unavailable JAY CONTRERAS, CURT Unavailable JAY CONTRERAS, CURT Unavailable [phone] PROBLEMS Condition Status Date Provider Notes OBESITY active Terri Stahlschmidt DEPRESSION active Terri Stahlschmidt HYPOTHYROIDISM active Terri Stahlschmidt HTN-04/25 ECHO EF 60 SM PLEU. EFF completed - Giulia Morse MD HYPERCHOLESTEROLEMIA-LABS PE R DR. THOMPSON OR DR. MORSE completed - Giulia Morse MD DISEASE, ACUTE BRONCHOSPASM completed 2007 - Tomi Downs Essential hypertension--echo ef nl, 08/2023 active ? Tomi Downs SLEEP APNEA-08/27 SLEEP STUD Y NEG completed - Tomi Downs CHEST PAIN- NL CATH AND KAREEM LS IN 2005, CCS zero 08/2023 active Tomi Downs HTN- 12/01 ECHO PHILL 65-06/28 ECHO EF 60 completed - Giulia Morse MD HTN ESSENTIAL completed - Giulia Morse MD Edema varicose veins active Giulia Morse MD Palpitations active Tomi Downs Knee pain, left active Giulia Morse MD ENCOUNTERS Date Type Provider Location Encounter Diag nosis - In-person encounter Office Visit Giulia Morse MD [facility] DISEASE, ACUTE BRONCHOSPASMEssential hypertension--echo ef nl, 08/2023SLEEP APNEA-08/27 SLEEP STUDY NEG - In-person encounter Office Visit Giulia Morse MD [facility] - In-person encounter Office Visit Giulia Morse MD [facility] Knee pain, left - In-person encounter Office Visit Giulia Morse MD [facility] Essential hypertension--echo ef nl, HEST PAIN- NL CATH AND RENALS IN 2005, CCS zero 08/2023 - In-person encounter Office Visit Giulia Morse MD [facility] Palpitations - In-person encounter Office Visit Giulia Morse MD [facility] - In-person encounter Office Visit Giulia Morse MD [facility] HTN-04/25 ECHO EF 60 SM PLEU. EFFHYPERCHOLESTEROLEMIA-LABS PER DR. THOMPSON OR DR. Abdulential hypertension--echo ef nl, 08/2023HTN- 12/01 ECHO PHILL 65-06/28 ECHO EF 60HTN ESSENTIALEdema varicose veins - In-person encounter Office Visit Giulia Morse MD [facility] - In-person encounter Office Visit Giulia Morse MD [facility] - In-person encounter Office Visit Giulia Morse MD [facility] - In-person encounter Office Visit Giulia Morse MD [facility] - In-person encounter Office Visit Giulia Morse MD [facility] - In-person encounter Office Visit Giulia Morse MD [facility] - In-person encounter Office Visit Giulia Morse MD [facility] CHEST PAIN- NL CATH AND RENALS IN 2005, CCS zero 08/2023 VITAL SIGNS Date Observation Value Provider Body Mass Index (Ratio) 27.29 kg/m2 Ian Morse MD blood pressure, cuff size regular Ke rri Gruenenfeldendy blood pressure, diastolic 90 mm[Hg] Ke rri Luizuenenaveedeldendy blood pressure, systolic 136 mm[Hg] Patricia ri Eli oxygen saturation, oximetry 99 % Chayito Eli pulse rate 61 /min Chayito Juan Miguelcheryl [facility] weight E&M 159 [lb_av] Chayito Luizrobertochungnfe [facility] height E&M 64 [in_i] Chayito Eliazarnfe [facility] Body Mass Index (Ratio) 29.55 kg/m2 Ian Morse MD pulse rate 82 /min [facility], cuff size regular [facility], diastolic 86 mm[Hg] Ta bitha [facility] blood pressure, systolic 124 mm[Hg] Tab [facility] oxygen saturation, oximetry 98 % Sarah [facility] respiratory rate E&M 12 /min Sarah [facility] weight E&M 172.2 [lb_av] Sarah [facility] height E&M 64 [in_i] Sarah [facility] Body Mass Index (Ratio) 31.58 kg/m2 Ian Morse MD blood pressure, cuff size regular [facility] blood pressure, diastolic 92 mm[Hg] Tristian [facility] blood pressure, systolic 166 mm[Hg] Saroj brian Huitron pulse rate 60 /min [facility] oxygen saturation, oximetry 98 % [facility] respiratory rate E&M 16 /min [facility] iller weight E&M 184 [lb_av] [facility] height E&M 64 [in_i] [facility] Body Mass Index (Ratio) 30.89 kg/m2 Ian Morse MD blood pressure, cuff size regular [facility] blood pressure, diastolic 79 mm[Hg] [facility] blood pressure, systolic 127 mm[Hg] [facility] oxygen saturation, oximetry 99 % [facility] respiratory rate E&M 16 /min [facility] pulse rate 73 /min [facility] weight E&M 180 [lb_av] [facility] height E&M 64 [in_i] [facility] Body Mass Index (Ratio) 30.89 kg/m2 Ian Morse MD blood pressure, diastolic 80 mm[Hg] Ana nkLog blood pressure, systolic 138 mm[Hg] Zoë kLog blood pressure, cuff size regular [facility] blood pressure, diastolic 80 mm[Hg] [facility] blood pressure, systolic 138 mm[Hg] [facility] pulse rate 84 /min Derick erda y weight E&M 180 [lb_av] Derick er respiratory rate E&M 12 /min Derick oxygen saturation, oximetry 97 % Derick height E&M 64 [in_i] Derick er y Body Mass Index (Ratio) 33.47 kg/m2 Ian Morse MD oxygen saturation, oximetry 96 % Giulia Morse MD pulse rate 70 /min Giulia Morse MD blood pressure, diastolic 80 mm[Hg] To yuli Morse MD blood pressure, systolic 130 mm[Hg] Chris Morse MD weight E&M 195 [lb_av] Giulia Morse MD height E&M 64 [in_i] Giulia Morse MD Body Mass Index (Ratio) 31.41 kg/m2 Danikaa flaquito [facility] blood pressure, diastolic 87 mm[Hg] An eatris [facility] blood pressure, systolic 165 mm[Hg] Ane atris [facility] pulse rate 69 /min Aneatris [facility] oxygen saturation, oximetry 97 % Aneatrsy Carter respiratory rate E&M 17 /min Aneatri s Raul weight E&M 183 [lb_av] Adonis Carter blood pressure, diastolic 85 mm[Hg] Diogenes Lees RN blood pressure, systolic 139 mm[Hg] Arnaldo Lees RN pulse rate 65 /min Arnaldo Lees RN oxygen saturation, oximetry 97 % Arnaldo Lees RN respiratory rate E&M 18 /min Arnaldo suggs RN Body Mass Index (Ratio) 28.60 kg/m2 Arnaldo Lees RN weight E&M 166 [lb_av] Arnaldo Lees RN blood pressure, diastolic 80 mm[Hg] Ayala blood pressure, systolic 124 mm[Hg] Ajay Umana pulse rate 74 /min Isatu Umana oxygen saturation, oximetry 99 % Isatu Umana respiratory rate E&M 16 /min Isatu Umana weight E&M 153 [lb_av] Isatu Umana blood pressure, diastolic, left arm 79 mm [Hg] Arnaldo Lees RN blood pressure, systolic, left arm 128 mm [Hg] Arnaldo Lees RN blood pressure, diastolic, right arm 93 m m[Hg] Arnaldo Lees RN blood pressure, systolic, right arm 143 m m[Hg] Arnaldo Lees RN blood pressure, diastolic 93 mm[Hg] Diogenes Lees RN blood pressure, systolic 143 mm[Hg] Arnaldo Lees RN pulse rate 77 /min Arnaldo Lees RN oxygen saturation, oximetry 97 % Arnaldo Lees RN respiratory rate E&M 20 /min Arnaldo suggs RN weight E&M 193 [lb_av] Arnaldo Lees RN blood pressure, diastolic 80 mm[Hg] Cricket arenasha O'[facility]my blood pressure, systolic 142 mm[Hg] Elizabeth amish [facility] pulse rate 81 /min Deonna O'Tommy oxygen saturation, oximetry 95 % Deonna O'Tommy respiratory rate E&M 16 /min Deonna O'Tommy weight E&M 191 [lb_av] Deonna O'Tommy weight E&M 186 [lb_av] Madisyn York blood pressure, diastolic 89 mm[Hg] Pa nadira York blood pressure, systolic 144 mm[Hg] Pat sy York oxygen saturation, oximetry 97 % Madisyn York pulse rate 69 /min Madisyn York respiratory rate E&M 14 /min Madisyn Jonny guevara blood pressure, diastolic 82 mm[Hg] Diogenes Lees RN blood pressure, systolic 133 mm[Hg] Arnaldo Lees RN pulse rate 72 /min Arnaldo Lees RN oxygen saturation, oximetry 98 % Arnaldo Lees RN respiratory rate E&M 16 /min Arnaldo suggs RN weight E&M 178 [lb_av] Arnaldo Lees RN Body Mass Index (Ratio) 28.60 kg/m2 Ian Morse MD height E&M 64 [in_i] Giulia Morse MD blood pressure, diastolic 88 mm[Hg] Andrei Jerry blood pressure, systolic 152 mm[Hg] [place] pulse rate 72 /min Matilde Jerry oxygen saturation, oximetry 99 % Matilde Jerry respiratory rate E&M 18 /min Matilde Funes mariela weight E&M 166 [lb_av] Matilde Jerry RESULTS Date Observation Value Provider Reference Range Interpretation Location hemoglobin A1C, blood, as % of total hemoglobin 5.7 % OF TOTAL HGB [facility] <5.7 High thyroid stimulating hormone, serum 1.32 u[IU]/mL [facility] Normal thyroxine, serum, free 1.6 ng/dL [facility] 0.8-1.8 Normal triiodothyronine (T3), serum 75 ng/dL [facility] 76-181 Low basophils as percent of blood leukocytes 0.2 % [facility] Normal eosinophils as percent of blood leukocytes 1.8 % [facility] Normal monocyte count, blood 5.0 % [facility] Normal lymphocyte count, blood 23.1 % [facility] Normal neutrophils as percent of blood leukocytes 69.9 % [facility] Normal basophils, absolute, manual 15 cells/mcL [facility] 0-200 Normal eosinophils, absolute, manual 139 cells/mcL [facility] 15-500 Normal monocytes, absolute, manual 385 cells/mcL [facility] 200-950 Normal lymphocytes, absolute 1779 CELLS/UL [facility] 850-3900 Normal Absolute Neutrophil count 5382 cells/mcL [facility] 4598-7694 Normal platelet count 168 THOUSAND/UL [facility] 140-400 Normal red blood cell distribution width 13.6 % [facility] 11.0-15.0 Normal mean corpuscular hemoglobin concentration, RBC 33.5 G/DL [facility] 32.0-36.0 Normal mean corpuscular hemoglobin, RBC 31.6 pg [facility] 27.0-33.0 Normal mean corpuscular volume, RBC 94.4 fL [facility] 80.0-100.0 Normal hematocrit, blood 41.6 % [facility] 35.0-45.0 Normal hemoglobin electrophoresis, blood 13.9 [facility] 11.7-15.5 Normal erythrocyte (RBC) count 4.40 MILLION/UL [facility] 3.80-5.10 Normal leukocyte (white blood cells) count, blood 7.7 THOUSAND/UL [facility] 3.8-10.8 Normal alanine aminotransferase (SGPT), serum 15 1/L [facility] 6-29 Normal aspartate aminotransferase (SGOT), serum 17 1/L [facility] 10-35 Normal alkaline phosphatase, serum 51 1/L [facility] 33-130 Normal bilirubin, serum, total 0.5 mg/dL [facility] 0.2-1.2 Normal albumin/globulin ratio, serum 1.7 (calc) [facility] 1.0-2.5 Normal globulins, serum, total 2.6 G/DL (CALC) [facility] 1.9-3.7 Normal albumin, serum 4.4 g/dL [facility] 3.6-5.1 Normal protein, total, serum 7.0 g/dL [facility] 6.1-8.1 Normal calcium, serum 9.6 mg/dL [facility] 8.6-10.4 Normal carbon dioxide, venous blood 29 mmol/L [facility] 19-30 Normal chloride, serum 104 mmol/L [facility] 98-110 Normal potassium, serum 3.5 mmol/L [facility] 3.5-5.3 Normal sodium, serum 140 mmol/L [facility] 135-146 Normal urea nitrogen/creatinine ratio, serum NOT APPLICABLE (calc) [facility] 6-22 Estimated Glomerular Filtration Rate (calc) 104 mL/min/{1.73_ m2} [facility] > OR = 60 Normal creatinine, serum 0.76 mg/dL [facility] 0.50-1.05 Normal urea nitrogen, blood 15 mg/dL [facility] 7-25 Normal blood glucose, random 104 mg/dL [facility] 65-99 High cholesterol/HDL ratio, serum, percent 2.7 (calc) [facility] < OR = 5.0 Normal LDL cholesterol, serum 70 MG/DL (CALC) [facility] <130 Normal triglyceride, serum, fasting 113 mg/dL [facility] <150 Normal HDL cholesterol, serum 56 mg/dL [facility] > OR = 46 Normal cholesterol, serum 149 [facility]dL [facility] Normal triglyceride, serum, fasting 69 mg/dL [facility] HDL cholesterol, serum 49 mg/dL [facility] lipoprotein, beta, serum, point, quantitative, calculated 63 mg/dL [facility] cholesterol, serum 126 mg/dL [facility] thyroid stimulating hormone, serum 0.86 u[IU]/mL [facility] alanine aminotransferase (SGPT), serum 51 1/L [facility] aspartate aminotransferase (SGOT), serum 30 1/L [facility] urea nitrogen, blood 18 mg/dL [facility] potassium, serum 4.0 mmol/L [facility] sodium, serum 140 mmol/L [facility] lipoprotein, beta, serum, point, quantitative, calculated 53 mg/dL [facility] cholesterol, serum 107 mg/dL [facility] thyroid stimulating hormone, serum 0.07 u[IU]/mL [facility] alanine aminotransferase (SGPT), serum 24 1/L [facility] aspartate aminotransferase (SGOT), serum 20 1/L [facility] creatinine, serum 0.66 mg/dL [facility] sodium, serum 138 mmol/L Denetr cholesterol/HDL ratio, serum 3.6 triglyceride, serum, fasting 152 mg/dL HDL cholesterol, serum 40 mg/dL LDL cholesterol, serum 74 mg/dL [facility] cholesterol, serum 144 mg/dL [facility] globulins, serum, total 2.3 g/dL [facility] Estimated Glomerular Filtration Rate (calc) 102 mL/min/{1.73_ m2} [facility] albumin/globulin ratio, serum 1.9 [facility] protein, total, serum 6.7 g/dL [facility] albumin, serum 4.4 g/dL [facility] bilirubin, serum, total 0.4 mg/dL [facility] alkaline phosphatase, serum 59 1/L alanine aminotransferase (SGPT), serum 13 1/L aspartate aminotransferase (SGOT), serum 12 1/L [facility] calcium, serum 8.9 mg/dL [facility] blood glucose, fasting 93 mg/dL creatinine, serum 0.69 mg/dL [facility] urea nitrogen, blood 20 mg/dL [facility] carbon dioxide, serum, total 24 mmol/L chloride, serum 106 mmol/L potassium, serum 4.1 mmol/L [facility] sodium, serum 140 mmol/L [facility] Vitamin D, 25 Hydroxy D3 27 ng/mL [facility] Vitamin D, 25 Hydroxy D2 <4 ng/mL [facility] basophils as percent of blood leukocytes 0.2 % [facility] Normal eosinophils as percent of blood leukocytes 2.8 % [facility] Normal monocyte count, blood 5.2 % [facility] Normal lymphocyte count, blood 27.1 % [facility] Normal neutrophils as percent of blood leukocytes 64.7 % [facility] Normal basophils, absolute, manual 13 cells/mcL [facility] (0-200) Normal eosinophils, absolute, manual 176 cells/mcL [facility] (15-500) Normal monocytes, absolute, manual 328 cells/mcL [facility] (200-950) Normal lymphocytes, absolute 1707 CELLS/UL [facility] (850-3900) Normal Absolute Neutrophil count 4076 cells/mcL [facility] (4338-6794) Normal platelet count 189 THOUSAND/UL [facility] (140-400) Normal red blood cell distribution width 13.3 % [facility] (11.0-15.0) Normal mean corpuscular hemoglobin concentration, RBC 33.8 G/DL [facility] (32.0-36.0) Normal mean corpuscular hemoglobin, RBC 31.6 pg [facility] (27.0-33.0) Normal mean corpuscular volume, RBC 93.6 fL [facility] (80.0-100.0 ) Normal hematocrit, blood 39.8 % [facility] (35.0-45.0) Normal hemoglobin electrophoresis, blood 13.5 [facility] (11.7-15.5) Normal erythrocyte (RBC) count 4.26 MILLION/UL [facility] (3.80-5.10) Normal leukocyte (white blood cells) count, blood 6.3 THOUSAND/UL [facility] (3.8-10.8) Normal alanine aminotransferase (SGPT), serum 14 1/L [facility] (6-40) Normal aspartate aminotransferase (SGOT), serum 14 1/L [facility] (10-35) Normal alkaline phosphatase, serum 58 1/L [facility] (33-115) Normal bilirubin, serum, total 0.5 mg/dL [facility] (0.2-1.2) Normal albumin/globulin ratio, serum 2.1 (calc) [facility] (1.0-2.1) Normal globulins, serum, total 2.1 G/DL (CALC) [facility] (2.2-3.9) Low albumin, serum 4.5 g/dL [facility] (3.6-5.1) Normal protein, total, serum 6.6 g/dL [facility] (6.2-8.3) Normal calcium, serum 9.3 mg/dL [facility] (8.6-10.2) Normal carbon dioxide, venous blood 25 mmol/L [facility] (21-33) Normal chloride, serum 106 mmol/L [facility] (98-110) Normal potassium, serum 4.1 mmol/L [facility] (3.5-5.3) Normal sodium, serum 139 mmol/L [facility] (135-146) Normal urea nitrogen/creatinine ratio, serum NOT APPLICABLE (calc) [facility] (6-22) Estimated Glomerular Filtration Rate (calc) 108 mL/min/{1.73_ m2} [facility] (> OR = 60) Normal creatinine, serum 0.75 mg/dL [facility] (0.59-1.07) Normal urea nitrogen, blood 16 mg/dL [facility] (7-25) Normal blood glucose, random 92 mg/dL [facility] (65-99) Normal thyroid stimulating hormone, serum 0.15 u[IU]/mL [facility] Low free thyroxine index 2.7 [facility] (1.4-3.8) Normal thyroxine, serum, total 8.5 ug/dL [facility] (4.5-12.0) Normal triiodothyronine resin uptake 32 % [facility] (22-35) Normal cholesterol/HDL ratio, serum, percent 2.9 (calc) [facility] (< OR = 5.0) Normal LDL cholesterol, serum 49 MG/DL (CALC) [facility] (<130) Normal triglyceride, serum, fasting 135 mg/dL [facility] (<150) Normal HDL cholesterol, serum 40 mg/dL [facility] (> OR = 46) Low cholesterol, serum 116 mg/dL [facility] (125-200) Low leukocyte esterase, urine, by dipstick Negative [facility] urobilinogen, urine, semiquantitative (dipstick) 0.2 [facility] Demet[facility] nitrite, urine, semiquantitative Negative [facility] RBC, urine, dipstick Negative [facility] bilirubin, urine Negative [facility] ketones, urine, by test strip Negative [facility] glucose, urine, semiquantitative Negative [facility] protein, urine, semiquantitative (dipstick) Negative [facility] pH, urine, semiquantitative 6.5 [place] Demetri specific gravity, urine 1.022 [place] Demetri urine color Yellow [place] Demetri appearance, urine Clear [facility] thyroid stimulating hormone, serum 0.36 u[IU]/mL [place] Demetri thyroxine, serum, free 1.3 ng/dL [facility] Demetri cholesterol/HDL ratio, serum 3.2 [place] Demetri triglyceride, serum, fasting 151 mg/dL [facility] Demetri HDL cholesterol, serum 39 mg/dL [facility] Demetri LDL cholesterol, serum 56 mg/dL [facility] Demetri cholesterol, serum 125 mg/dL [facility] [place] Demetri globulins, serum, total 2.3 g/dL [facility] Estimated Glomerular Filtration Rate (calc) >60 [place] Demetri albumin/globulin ratio, serum 2.0 [place] Demetri protein, total, serum 6.9 g/dL [facility] albumin, serum 4.6 g/dL [facility] bilirubin, serum, total 0.5 mg/dL [facility] alkaline phosphatase, serum 60 1/L [place] alanine aminotransferase (SGPT), serum 18 1/L [facility] aspartate aminotransferase (SGOT), serum 19 1/L [place] calcium, serum 9.7 mg/dL [facility] blood glucose, fasting 98 mg/dL [facility] creatinine, serum 0.74 mg/dL [facility] urea nitrogen, blood 16 mg/dL [facility] carbon dioxide, serum, total 28 mmol/L [facility] chloride, serum 102 mmol/L [facility] potassium, serum 3.8 mmol/L [facility] sodium, serum 137 mmol/L [facility] albumin/globulin ratio, serum 1.8 [facility] protein, total, serum 7.1 g/dL [facility] albumin, serum 4.6 g/dL [facility] bilirubin, serum, total 0.4 mg/dL [facility] alkaline phosphatase, serum 59 1/L [facility] alanine aminotransferase (SGPT), serum 17 1/L [facility] aspartate aminotransferase (SGOT), serum 14 1/L [facility] calcium, serum 9.4 mg/dL [place] blood glucose, fasting 108 mg/dL [facility] creatinine, serum 0.70 mg/dL [facility] urea nitrogen, blood 13 mg/dL [place] carbon dioxide, serum, total 27 mmol/L [facility] chloride, serum 109 mmol/L [facility] potassium, serum 4.2 mmol/L [facility] sodium, serum 139 mmol/L [facility] globulins, serum, total 2.5 g/dL [facility] Estimated Glomerular Filtration Rate (calc) >60 [facility] cholesterol/HDL ratio, serum 2.9 [facility] triglyceride, serum, fasting 113 mg/dL [facility] HDL cholesterol, serum 45 mg/dL [facility] LDL cholesterol, serum 62 mg/dL [facility] cholesterol, serum 130 mg/dL [facility] thyroid stimulating hormone, serum 0.23 u[IU]/mL [facility] thyroxine, serum, free 1.4 ng/dL [facility] albumin/globulin ratio, serum 1.6 [facility] protein, total, serum 7.1 g/dL [facility] albumin, serum 4.4 g/dL [place] bilirubin, serum, total 0.4 mg/dL [facility] alkaline phosphatase, serum 67 1/L [facility] alanine aminotransferase (SGPT), serum 24 1/L [facility] aspartate aminotransferase (SGOT), serum 26 1/L [place] calcium, serum 9.4 mg/dL [facility] blood glucose, fasting 89 mg/dL [facility] creatinine, serum 0.74 mg/dL [facility] urea nitrogen, blood 17 mg/dL [place] carbon dioxide, serum, total 24 mmol/L [facility] chloride, serum 102 mmol/L [facility] potassium, serum 4.1 mmol/L [facility] sodium, serum 138 mmol/L [facility] triglyceride, serum, fasting 186 mg/dL [facility] HDL cholesterol, serum 37 mg/dL [facility] LDL cholesterol, serum 85 mg/dL Dolores Mosquera cholesterol, serum 159 mg/dL Dolores Mosquera thyroxine, serum, total 9.9 ug/dL Dol[facility] Mosquera triiodothyronine resin uptake 29 % Dolores Mosquera HISTORY OF MEDICATION USE Medication Status Instructions Dates Provider Indications Com ments amlodipine 2.5 mg tablet active Take 1 tablet by mouth once a day Tomi Downs metoprolol succinate 50 mg tablet extended release 24 hr active TAKE 1 TABLET BY MOUTH EVERY DAY Vee Edgar VITAMIN D TABLET active 1 tablet once a day Tomi Downs ZYRTEC ALLERGY 10 MG ORAL TABLET completed ONE TAB. DAILY as needed - Aneatris Brown MULTIVITAMINS ORAL CAPSULE active 1 tablet once a day Tomi Downs Xanax 0.25 mg tablet active 1 three nell es a day as needed Arnaldo Lees RN ASPIRIN 81 MG ORAL TABLET active 1 tablet once a day Tomi Downs Celexa 20 mg tablet active 1 tablet onc e a day Giulia Morse MD PRILOSEC 20 MG ORAL CAPSULE DELAYED RELEASE completed ONE TAB. DAILY - Giulia Morse MD atorvastatin 40 mg tablet active Take 1 tablet once a day Tomi Downs Replaces Crestor 20mg Synthroid 100 mcg tablet active once a day Tomi Downs XOPENEX HFA AEROSOL completed 2 puffs once daily as needed. - Giulia Morse MD hydrochlorothiazide 25 mg tablet active Take 1 tablet by mouth once a day Tomi Downs felodipine 10 mg tablet extended release 24 hr completed 1 tablet once a day - Tomi Downs SOCIAL HISTORY Date Observation Value Provider drug use none Tomi Downs alcohol use, average drinks per day 2 /d Tomi Downs alcohol use, type beer Tomi gutierrez alcohol use yes Tomi Downs smoking status Former smoker Tomi Stewart i drug use none Tomi Downs alcohol use, average drinks per day 2 /d Tomi Stewarti alcohol use, type beer Tomi majori alcohol use yes Tomi Downs smoking status Former smoker Tomi Stewart i drug use none Tomi Downs alcohol use, average drinks per day 2 /d Tomi Stewarti alcohol use, type beer Tomi majori alcohol use yes Tomi Downs smoking status Former smoker Tomi Stewart i smoking status Former smoker Marylou Huitron social history reviewed E&M revi ewed - no changes required Tomi Downs social history reviewed E&M revi ewed - no changes required Tomi Downs In the past 3 months , have you felt you should cut down or stop using drugs?(CAGE substance use question #1) Y Giulia Morse MD alcohol use, type beer Giulia portillo MD alcohol use, average drinks per day 2 /d Giulia Morse MD alcohol use yes Giulia Morse MD social history reviewed E&M revi ewed - no changes required Giulia Morse MD social history reviewed E&M revi ewed - no changes required Adonis Carter smoking status Former smoker Adonis rodas social history reviewed E&M reviewed Giulia Morse MD smoking status former smoker Arnaldo Cedillo social history reviewed E&M reviewed Arnaldo Lees RN social history reviewed E&M reviewed Arnaldo Lees RN social history reviewed E&M reviewed Arnaldo Lees RN social history reviewed E&M reviewed Arnaldo Lees RN social history reviewed E&M reviewed Arnaldo Lees RN social history E&M Marital Statu s: Yani savage with family/friends E thnicity: Giulia Morse MD drug use none Giulia Morse MD social history reviewed E&M reviewed Giulia Morse MD physical exercise, f requency, days per week yes [facility] caffeine use, averag e drinks per day yes [facility] alcohol use, average drinks per day social basis only [facility] number of years as a smoker 10 years or m ore [facility] smoking status Quit [facility] MENTAL STATUS Date Observation Value Provider assessment of judgme nt and insight E&M Alert and oriented to time, place and person. Mood and affect are normal. Giulia Morse MD assessment of judgme nt and insight E&M Alert and oriented to time, place and person. Mood and affect are normal. Arnaldo Lees RN assessment of judgme nt and insight E&M Alert and oriented to time, place and person. Mood and affect are normal. Arnaldo Lees RN assessment of judgme nt and insight E&M Alert and oriented to time, place and person. Mood and affect are normal. Arnaldo Lees RN assessment of judgme nt and insight E&M Alert and oriented to time, place and person. Mood and affect are normal. Arnaldo Lees RN assessment of judgme nt and insight E&M Alert and oriented to time, place and person. Mood and affect are normal. Arnaldo Lees RN assessment of judgme nt and insight E&M Alert and oriented to time, place and person. Mood and affect are normal. Giulia Morse MD FAMILY HISTORY Family Member Condition Father Family History of Hy pertension: Father Family History of Di abetes: INSURANCE PROVIDERS Payer name Policy type / Coverage type [employer] red democrat ID Friend Trusted [id number] ADVANCE DIRECTIVES Name Date DISCUSSED - NO DECISION MADE TREATMENT PLAN Date Name Performer [id number] Riaz Ahmedza i [id number],S, Tomi Tapiamedza i [id number],S, Tomi Tapiamedza i [id number],S, Tomi Tapiamedza i [id number],S, Tomi Tapiamedza i [id number],S, Tomi Tapiamedza i [id number],S, Tomi Tapiamedza i [id number],S, Tomi Tapiamedza i [id number],S, Tomi Tapiamedza i [id number],N, Tomi Marieza i Cardiology Giulia Morse MD Cardiology: H er updated medication list for this problem includes: Metoprolol Succinate 50 Mg Tablet Extended Release 24 Hr (Metoprolol succinate) ..... Take 1 tablet by mouth every day Giulia Morse MD Cardiology:This visi t has been a part of the consistent, comprehensive, and ongoing management of the chronic medical condition(s) listed above for the patient. BP today: 136/90 P rior BP: 124/86 (06/09/2024) Labs Reviewed: C reat: 0.76 (11/27/2014) C hol: 149 (11/27/2014) HDL: 56 (11/27/2014) LDL: 70 MG/DL (CALC) (11/27/2014) T (11/27/2014) Her updated medication list for this problem includes: Metoprolol Succinate 50 Mg Tablet Extended Release 24 Hr (Metoprolol succinate) ..... Take 1 tablet by mouth every day Hydrochlorothiazide 25 Mg Tablet (Hydrochlorothiazide) ..... Take 1 tablet by mouth once a day Giulia Morse MD Cardiology: H er updated medication list for this problem includes: Metoprolol Succinate 50 Mg Tablet Extended Release 24 Hr (Metoprolol succinate) ..... Take 1 tablet by mouth every day Giulia Morse MD Cardiology: H er updated medication list for this problem includes: Synthroid 100 Mcg Tablet (Levothyroxine) ..... Once a day [facility] Cardiology [facility] Cardiology: H er updated medication list for this problem includes: Metoprolol Succinate 50 Mg Tablet Extended Release 24 Hr (Metoprolol succinate) ..... Take 1 tablet by mouth every day [facility] Cardiology: B P today: 124/86 P rior BP: 166/92 (12/11/2023) Labs Reviewed: C reat: 0.76 (11/27/2014) C hol: 149 (11/27/2014) HDL: 56 (11/27/2014) LDL: 70 MG/DL (CALC) (11/27/2014) T (11/27/2014) Her updated medication list for this problem includes: Metoprolol Succinate 50 Mg Tablet Extended Release 24 Hr (Metoprolol succinate) ..... Take 1 tablet by mouth every day Hydrochlorothiazide 25 Mg Tablet (Hydrochlorothiazide) ..... Take 1 tablet by mouth once a day [facility] Cardiology: H er updated medication list for this problem includes: Metoprolol Succinate 50 Mg Tablet Extended Release 24 Hr (Metoprolol succinate) ..... Take 1 tablet by mouth every day [facility] Cardiology [facility] Cardiology:Monitor y our BP at home, goal BP is <135/85 B P today: 166/92 P rior BP: 127/79 (09/03/2023) Labs Reviewed: C reat: 0.76 (11/27/2014) C hol: 149 (11/27/2014) HDL: 56 (11/27/2014) LDL: 70 MG/DL (CALC) (11/27/2014) T (11/27/2014) Her updated medication list for this problem includes: Metoprolol Succinate 50 Mg Tablet Extended Release 24 Hr (Metoprolol succinate) ..... Take 1 tablet by mouth every day Hydrochlorothiazide 25 Mg Tablet (Hydrochlorothiazide) ..... Take 1 tablet by mouth once a day [facility] Cardiology: O rders: X -Ray, Knee ([id number]) [facility] Cardiology Tomi Ahmedzai Cardiology Tomi Ahmedzai Cardiology: H er updated medication list for this problem includes: Synthroid 100 Mcg Tablet (Levothyroxine) ..... Once a day Tomi Ahmedzai Cardiology Tomi Ahmedzai Cardiology Tomi Ahmedzai Cardiology Tomi Ahmedzai Cardiology Tomi [facility] Cardiology Tomi Ahmedzai Cardiology Tomi Ahmedzai Cardiology Tomi Ahmedzai Cardiology Tomi Ahmedzai Cardiology Tomi Ahmedzai Cardiology Tomi [facility] Cardiology Giulia Morse MD Cardiology Giulia Morse MD Cardiology Giulia Morse MD Cardiology Giulia Morse MD : H er updated medication list for this problem includes: Felodipine 5 Mg Tb24 (Felodipine) ..... Take one tablet by mouth every day Hydrochlorothiazide 25 Mg Tabs (Hydrochlorothiazide) ..... Take one tablet by mouth every day Aspirin 81 Mg Tabs (Aspirin) ..... One tab. daily BP today: 139/85 P rior BP: 124/80 (06/30/2012) Labs Reviewed: C reat: 0.66 (03/14/2012) C hol: 126 (02/04/2013) HDL: 49 (02/04/2013) LDL: 63 (02/04/2013) T (02/04/2013) Giulia Morse MD : H er updated medication list for this problem includes: Felodipine 5 Mg Tb24 (Felodipine) ..... Take one tablet by mouth every day Aspirin 81 Mg Tabs (Aspirin) ..... One tab. daily BP today: 139/85 Prior BP: 124/80 (06/30/2012) N uclear Stress Findings: ST segment depression in the inferior leads considered to be diagnostic for ischemia and 1.3mm downsloping to 1.6mm upsloping ST segment depresison in the lateral leads suggestive of ischemia. (04/25/2006) C ardiac Cath: Left ventriculogram: Performed in the standard CISNEROS projection revealed normal presystolic function with no mitral regurgitation. Left coronary artery: The left main was angiographically free of stenosis. The left circumflex was free to stenosis. R ight coronary artery: The right coronary artery was free of stenosis. B ilateral renal arteries: Selectively performed showed normal bilateral renal arteries. (05/28/2006) C HOL: 126 (02/04/2013) LDL: 63 (02/04/2013) HDL: 49 (02/04/2013) T (02/04/2013) H CT: 39.8 (06/15/2011) Platelets: 189 THOUSAND/UL (06/15/2011) R BC: 4.26 MILLION/UL (06/15/2011) BUN: 18 (02/04/2013) Creat: 0.66 (03/14/2012) Glucose: 93 (08/27/2011) Na+: 140 (02/04/2013) K+: 4.0 (02/04/2013) Cl: 106 (08/27/2011) TSH: 0.86 (02/04/2013) T4 (total): 8.5 (06/15/2011) Giulia Morse MD : H er updated medication list for this problem includes: Felodipine 5 Mg Tb24 (Felodipine) ..... Take one tablet by mouth every day Hydrochlorothiazide 25 Mg Tabs (Hydrochlorothiazide) ..... Take one tablet by mouth every day Aspirin 81 Mg Tabs (Aspirin) ..... One tab. daily BP today: 139/85 P rior BP: 124/80 (06/30/2012) Labs Reviewed: C reat: 0.66 (03/14/2012) C hol: 126 (02/04/2013) HDL: 49 (02/04/2013) LDL: 63 (02/04/2013) T (02/04/2013) Giulia Morse MD follow up Giulia Morse MD follow up: H er updated medication list for this problem includes: Felodipine 5 Mg Tb24 (Felodipine) ..... Take one tablet by mouth every day Hydrochlorothiazide 25 Mg Tabs (Hydrochlorothiazide) ..... Take one tablet by mouth every day Aspirin 81 Mg Tabs (Aspirin) ..... One tab. daily BP today: 124/80 P rior BP: 143/93 (06/12/2011) Labs Reviewed: C reat: 0.66 (03/14/2012) C hol: 107 (03/14/2012) HDL: 40 (08/27/2011) LDL: 53 (03/14/2012) T (08/27/2011) Giulia Morse MD follow up Giulia Morse MD follow up: H er updated medication list for this problem includes: Felodipine 5 Mg Tb24 (Felodipine) ..... Take one tablet by mouth every day Aspirin 81 Mg Tabs (Aspirin) ..... One tab. daily BP today: 124/80 Prior BP: 143/93 (06/12/2011) N uclear Stress Findings: ST segment depression in the inferior leads considered to be diagnostic for ischemia and 1.3mm downsloping to 1.6mm upsloping ST segment depresison in the lateral leads suggestive of ischemia. (04/25/2006) C ardiac Cath: Left ventriculogram: Performed in the standard CISNEROS projection revealed normal presystolic function with no mitral regurgitation. Left coronary artery: The left main was angiographically free of stenosis. The left circumflex was free to stenosis. R ight coronary artery: The right coronary artery was free of stenosis. B ilateral renal arteries: Selectively performed showed normal bilateral renal arteries. (05/28/2006) C HOL: 107 (03/14/2012) LDL: 53 (03/14/2012) HDL: 40 (08/27/2011) T (08/27/2011) H CT: 39.8 (06/15/2011) Platelets: 189 THOUSAND/UL (06/15/2011) R BC: 4.26 MILLION/UL (06/15/2011) BUN: 20 (08/27/2011) Creat: 0.66 (03/14/2012) Glucose: 93 (08/27/2011) N a+: 138 (03/14/2012) K+: 4.1 (08/27/2011) Cl: 106 (08/27/2011) TSH: 0.07 (03/14/2012) T4 (total): 8.5 (06/15/2011) Giulia Morse MD follow up: H er updated medication list for this problem includes: Felodipine 5 Mg Tb24 (Felodipine) ..... Take one tablet by mouth every day Hydrochlorothiazide 25 Mg Tabs (Hydrochlorothiazide) ..... Take one tablet by mouth every day Aspirin 81 Mg Tabs (Aspirin) ..... One tab. daily BP today: 124/80 P rior BP: 143/93 (06/12/2011) Labs Reviewed: C reat: 0.66 (03/14/2012) C hol: 107 (03/14/2012) HDL: 40 (08/27/2011) LDL: 53 (03/14/2012) T (08/27/2011) Giulia Morse MD follow up: H er updated medication list for this problem includes: Felodipine 5 Mg Tb24 (Felodipine) ..... Take one tablet by mouth every day Hydrochlorothiazide 25 Mg Tabs (Hydrochlorothiazide) ..... Take one tablet by mouth every day Aspirin 81 Mg Tabs (Aspirin) ..... One tab. daily Orders: E KG ([id number]) BP today: 124/80 P rior BP: 143/93 (06/12/2011) Labs Reviewed: C reat: 0.66 (03/14/2012) C hol: 107 (03/14/2012) HDL: 40 (08/27/2011) LDL: 53 (03/14/2012) T (08/27/2011) Giulia Morse MD routine: H er updated medication list for this problem includes: Synthroid Tabs (Levothyroxine sodium tabs) ..... 0.1 mg 1 tablet daily Labs Reviewed: T SH: 0.36 (09/05/2010) Free T4: 1.3 (09/05/2010) C hol: 125 (09/05/2010) HDL: 39 (09/05/2010) LDL: 56 (09/05/2010) T (09/05/2010) Orders: C OMPREHENSIVE METABOLIC PANEL W/EGFR (92775) C BC (INCLUDES DIFF/PLT) (6399) T HYROID PANEL WITH TSH, 3RD GENERATION (7444) V ITAMIN D, 25-HYDROXY, LC/MS/MS (67795) L IPID PANEL (7600) Giulia Morse MD routine: H er updated medication list for this problem includes: Crestor 20 Mg Tabs (Rosuvastatin calcium) ..... One tab. daily BP today: 143/93 Prior BP: 142/80 (12/05/2010) C HOL: 125 (09/05/2010) LDL: 56 (09/05/2010) HDL: 39 (09/05/2010) T (09/05/2010) Orders: C OMPREHENSIVE METABOLIC PANEL W/EGFR (38794) C BC (INCLUDES DIFF/PLT) (6399) T HYROID PANEL WITH TSH, 3RD GENERATION (7444) V ITAMIN D, 25-HYDROXY, LC/MS/MS (02662) L IPID PANEL (7600) Giulia Morse MD routine Giulia Morse MD routine: H er updated medication list for this problem includes: Felodipine 5 Mg Tb24 (Felodipine) ..... Take one tablet by mouth every day Hydrochlorothiazide 25 Mg Tabs (Hydrochlorothiazide) ..... Take one tablet by mouth every day Aspirin 81 Mg Tabs (Aspirin) ..... One tab. daily BP today: 143/93 P rior BP: 142/80 (12/05/2010) Labs Reviewed: C reat: 0.74 (09/05/2010) C hol: 125 (09/05/2010) HDL: 39 (09/05/2010) LDL: 56 (09/05/2010) T (09/05/2010) Giulia Morse MD routine Giulia Morse MD routine: H er updated medication list for this problem includes: Felodipine 5 Mg Tb24 (Felodipine) ..... Take one tablet by mouth every day Aspirin 81 Mg Tabs (Aspirin) ..... One tab. daily BP today: 143/93 Prior BP: 142/80 (12/05/2010) N uclear Stress Findings: ST segment depression in the inferior leads considered to be diagnostic for ischemia and 1.3mm downsloping to 1.6mm upsloping ST segment depresison in the lateral leads suggestive of ischemia. (04/25/2006) C ardiac Cath: Left ventriculogram: Performed in the standard CISNEROS projection revealed normal presystolic function with no mitral regurgitation. Left coronary artery: The left main was angiographically free of stenosis. The left circumflex was free to stenosis. R ight coronary artery: The right coronary artery was free of stenosis. B ilateral renal arteries: Selectively performed showed normal bilateral renal arteries. (05/28/2006) C HOL: 125 (09/05/2010) LDL: 56 (09/05/2010) HDL: 39 (09/05/2010) T (09/05/2010) B UN: 16 (09/05/2010) Creat: 0.74 (09/05/2010) Glucose: 98 (09/05/2010) N a+: 137 (09/05/2010) K+: 3.8 (09/05/2010) Cl: 102 (09/05/2010) TSH: 0.36 (09/05/2010) T4 (total): 9.9 (09/06/2009) E chocardiogram: Normal left ventricular systolic function. Normal left ventricular size. There is borderline left ventricular hypertrophy. There is E to A wave reversal consistent with impaired LV relaxation. Normal E/E` 9.0. Left ventricular ejection fraction is estimated at 65%. There is mild enlargement of the left atrium. No significant valvular abnormalities. Normal aortic root size. Normal pericardium with no pericardial or pleural effusion. - GC (12/05/2010) Giulia Morse MD routine: H er updated medication list for this problem includes: Felodipine 5 Mg Tb24 (Felodipine) ..... Take one tablet by mouth every day Hydrochlorothiazide 25 Mg Tabs (Hydrochlorothiazide) ..... Take one tablet by mouth every day Aspirin 81 Mg Tabs (Aspirin) ..... One tab. daily BP today: 143/93 P rior BP: 142/80 (12/05/2010) Labs Reviewed: C reat: 0.74 (09/05/2010) C hol: 125 (09/05/2010) HDL: 39 (09/05/2010) LDL: 56 (09/05/2010) T (09/05/2010) Orders: C BC (INCLUDES DIFF/PLT) (8704) T HYROID PANEL WITH TSH, 3RD GENERATION (1644) V ITAMIN D, 25-HYDROXY, LC/MS/MS (07337) L IPID PANEL (7680) Giulia Morse MD follow up: H er updated medication list for this problem includes: Crestor 20 Mg Tabs (Rosuvastatin calcium) ..... One tab. daily BP today: 142/80 Prior BP: 144/89 (06/06/2010) C HOL: 125 (09/05/2010) LDL: 56 (09/05/2010) HDL: 39 (09/05/2010) T (09/05/2010) Giulia Morse MD follow up Giulia Morse MD follow up: H er updated medication list for this problem includes: Felodipine 5 Mg Tb24 (Felodipine) ..... Take one tablet by mouth every day Hydrochlorothiazide 25 Mg Tabs (Hydrochlorothiazide) ..... Take one tablet by mouth every day Aspirin 81 Mg Tabs (Aspirin) ..... One tab. daily BP today: 142/80 P rior BP: 144/89 (06/06/2010) Labs Reviewed: C reat: 0.74 (09/05/2010) C hol: 125 (09/05/2010) HDL: 39 (09/05/2010) LDL: 56 (09/05/2010) T (09/05/2010) Giulia Morse MD follow up Giulia Morse MD follow up: H er updated medication list for this problem includes: Felodipine 5 Mg Tb24 (Felodipine) ..... Take one tablet by mouth every day Aspirin 81 Mg Tabs (Aspirin) ..... One tab. daily BP today: 142/80 Prior BP: 144/89 (06/06/2010) N uclear Stress Findings: ST segment depression in the inferior leads considered to be diagnostic for ischemia and 1.3mm downsloping to 1.6mm upsloping ST segment depresison in the lateral leads suggestive of ischemia. (04/25/2006) C ardiac Cath: Left ventriculogram: Performed in the standard CISNEROS projection revealed normal presystolic function with no mitral regurgitation. Left coronary artery: The left main was angiographically free of stenosis. The left circumflex was free to stenosis. R ight coronary artery: The right coronary artery was free of stenosis. B ilateral renal arteries: Selectively performed showed normal bilateral renal arteries. (05/28/2006) C HOL: 125 (09/05/2010) LDL: 56 (09/05/2010) HDL: 39 (09/05/2010) T (09/05/2010) B UN: 16 (09/05/2010) Creat: 0.74 (09/05/2010) Glucose: 98 (09/05/2010) N a+: 137 (09/05/2010) K+: 3.8 (09/05/2010) Cl: 102 (09/05/2010) TSH: 0.36 (09/05/2010) T4 (total): 9.9 (09/06/2009) E chocardiogram: The left ventricular chamber size is normal. Normal left ventricular wall thickness.Normal left ventricular function. LV EF is estimated at 60%. The aortic valve appears mildly thickened (sclerotic). Minimal mitral regurgitation. No evidence of aortic valve regurgitation. Minimal tricuspid regurgitation. Minimal pulmonic regurgitation. (06/22/2008) Giulia Morse MD follow up: H er updated medication list for this problem includes: Felodipine 5 Mg Tb24 (Felodipine) ..... Take one tablet by mouth every day Hydrochlorothiazide 25 Mg Tabs (Hydrochlorothiazide) ..... Take one tablet by mouth every day Aspirin 81 Mg Tabs (Aspirin) ..... One tab. daily BP today: 142/80 P rior BP: 144/89 (06/06/2010) Labs Reviewed: C reat: 0.74 (09/05/2010) C hol: 125 (09/05/2010) HDL: 39 (09/05/2010) LDL: 56 (09/05/2010) T (09/05/2010) Giulia Morse MD sob: H er updated medication list for this problem includes: Felodipine 5 Mg Tb24 (Felodipine) ..... Take one tablet by mouth every day Hydrochlorothiazide 25 Mg Tabs (Hydrochlorothiazide) ..... Take one tablet by mouth every day Aspirin 81 Mg Tabs (Aspirin) ..... One tab. daily BP today: 144/89 P rior BP: 133/82 (11/08/2008) Labs Reviewed: C reat: 0.70 (02/25/2010) C hol: 130 (02/25/2010) HDL: 45 (02/25/2010) LDL: 62 (02/25/2010) T (02/25/2010) Giulia Morse MD sob: H er updated medication list for this problem includes: Crestor 20 Mg Tabs (Rosuvastatin calcium) ..... One tab. daily BP today: 144/89 Prior BP: 133/82 (11/08/2008) C HOL: 130 (02/25/2010) LDL: 62 (02/25/2010) HDL: 45 (02/25/2010) T (02/25/2010) Giulia Morse MD sob: H er updated medication list for this problem includes: Felodipine 5 Mg Tb24 (Felodipine) ..... Take one tablet by mouth every day Hydrochlorothiazide 25 Mg Tabs (Hydrochlorothiazide) ..... Take one tablet by mouth every day Aspirin 81 Mg Tabs (Aspirin) ..... One tab. daily BP today: 144/89 P rior BP: 133/82 (11/08/2008) Labs Reviewed: C reat: 0.70 (02/25/2010) C hol: 130 (02/25/2010) HDL: 45 (02/25/2010) LDL: 62 (02/25/2010) T (02/25/2010) Giulia Morse MD sob Giulia Morse MD sob: H er updated medication list for this problem includes: Felodipine 5 Mg Tb24 (Felodipine) ..... Take one tablet by mouth every day Aspirin 81 Mg Tabs (Aspirin) ..... One tab. daily B P today: 144/89 Prior BP: 133/82 (11/08/2008) N uclear Stress Findings: ST segment depression in the inferior leads considered to be diagnostic for ischemia and 1.3mm downsloping to 1.6mm upsloping ST segment depresison in the lateral leads suggestive of ischemia. (04/25/2006) C ardiac Cath: Left ventriculogram: Performed in the standard CISNEROS projection revealed normal presystolic function with no mitral regurgitation. Left coronary artery: The left main was angiographically free of stenosis. The left circumflex was free to stenosis. R ight coronary artery: The right coronary artery was free of stenosis. B ilateral renal arteries: Selectively performed showed normal bilateral renal arteries. (05/28/2006) C HOL: 130 (02/25/2010) LDL: 62 (02/25/2010) HDL: 45 (02/25/2010) T (02/25/2010) B UN: 13 (02/25/2010) Creat: 0.70 (02/25/2010) Glucose: 108 (02/25/2010) N a+: 139 (02/25/2010) K+: 4.2 (02/25/2010) Cl: 109 (02/25/2010) TSH: 0.23 (02/25/2010) T4 (total): 9.9 (09/06/2009) E chocardiogram: The left ventricular chamber size is normal. Normal left ventricular wall thickness.Normal left ventricular function. LV EF is estimated at 60%. The aortic valve appears mildly thickened (sclerotic). Minimal mitral regurgitation. No evidence of aortic valve regurgitation. Minimal tricuspid regurgitation. Minimal pulmonic regurgitation. (06/22/2008) Giulia Morse MD sob: H er updated medication list for this problem includes: Felodipine 5 Mg Tb24 (Felodipine) ..... Take one tablet by mouth every day Hydrochlorothiazide 25 Mg Tabs (Hydrochlorothiazide) ..... Take one tablet by mouth every day Aspirin 81 Mg Tabs (Aspirin) ..... One tab. daily BP today: 144/89 P rior BP: 133/82 (11/08/2008) Labs Reviewed: C reat: 0.70 (02/25/2010) C hol: 130 (02/25/2010) HDL: 45 (02/25/2010) LDL: 62 (02/25/2010) T (02/25/2010) Giulia Morse MD office visit: H er updated medication list for this problem includes: Crestor 20 Mg Tabs (Rosuvastatin calcium) ..... One tab. daily BP today: 133/82 Prior BP: 152/88 (06/14/2008) Giulia Morse MD office visit: H er updated medication list for this problem includes: Felodipine 5 Mg Tb24 (Felodipine) ..... Take one tablet by mouth every day Hydrochlorothiazide 25 Mg Tabs (Hydrochlorothiazide) ..... Take one tablet by mouth every day Aspirin 81 Mg Tabs (Aspirin) ..... One tab. daily BP today: 133/82 P rior BP: 152/88 (06/14/2008) Giulia Morse MD office visit: H er updated medication list for this problem includes: Synthroid Tabs (Levothyroxine sodium tabs) ..... 0.1 mg 1 tablet daily Giulia Morse MD office visit Giulia Morse MD office visit Giulia Morse MD office visit: H er updated medication list for this problem includes: Felodipine 5 Mg Tb24 (Felodipine) ..... Take one tablet by mouth every day Hydrochlorothiazide 25 Mg Tabs (Hydrochlorothiazide) ..... Take one tablet by mouth every day Aspirin 81 Mg Tabs (Aspirin) ..... One tab. daily BP today: 133/82 P rior BP: 152/88 (06/14/2008) Giulia Morse MD office visit: H er updated medication list for this problem includes: Felodipine 5 Mg Tb24 (Felodipine) ..... Take one tablet by mouth every day Aspirin 81 Mg Tabs (Aspirin) ..... One tab. daily BP today: 133/82 Prior BP: 152/88 (06/14/2008) N uclear Stress Findings: ST segment depression in the inferior leads considered to be diagnostic for ischemia and 1.3mm downsloping to 1.6mm upsloping ST segment depresison in the lateral leads suggestive of ischemia. (04/25/2006) C ardiac Cath: Left ventriculogram: Performed in the standard CISNEROS projection revealed normal presystolic function with no mitral regurgitation. Left coronary artery: The left main was angiographically free of stenosis. The left circumflex was free to stenosis. R ight coronary artery: The right coronary artery was free of stenosis. B ilateral renal arteries: Selectively performed showed normal bilateral renal arteries. (05/28/2006) E chocardiogram: The left ventricular chamber size is normal. Normal left ventricular wall thickness.Normal left ventricular function. LV EF is estimated at 60%. The aortic valve appears mildly thickened (sclerotic). Minimal mitral regurgitation. No evidence of aortic valve regurgitation. Minimal tricuspid regurgitation. Minimal pulmonic regurgitation. (06/22/2008) Giulia Morse MD office visit: H er updated medication list for this problem includes: Felodipine 5 Mg Tb24 (Felodipine) ..... Take one tablet by mouth every day Hydrochlorothiazide 25 Mg Tabs (Hydrochlorothiazide) ..... Take one tablet by mouth every day Aspirin 81 Mg Tabs (Aspirin) ..... One tab. daily BP today: 133/82 P rior BP: 152/88 (06/14/2008) Giulia Morse MD cp Giulia Morse MD cp Giulia Morse MD cp Giulia Morse MD cp : H er updated medication list for this problem includes: Felodipine 5 Mg Tb24 (Felodipine) ..... Take one tablet by mouth every day Hydrochlorothiazide 25 Mg Tabs (Hydrochlorothiazide) ..... Take one tablet by mouth every day Aspirin 81 Mg Tabs (Aspirin) ..... One tab. daily Giulia Morse MD Date Name X-Ray, Knee Complete Echo CT, Coronary Calcium Score HEMOGLOBIN A1c T3, TOTAL T-4, FREE TSH, 3RD GENERATION W/REFLEX TO FT4 CBC (INCLUDES DIFF/P LT) LIPID PANEL COMPREHENSIVE METABO LIC PANEL W/EGFR LIPID PANEL VITAMIN D, 25-HYDROX Y, LC/MS/MS THYROID PANEL WITH T SH, 3RD GENERATION CBC (INCLUDES DIFF/P LT) COMPREHENSIVE METABO LIC PANEL W/EGFR CBC (H/H, RBC, INDIC ES, WBC, PLT) THYROID PANEL LIPID PANEL Complete Echo HISTORY OF PROCEDURES Procedure Date Procedure Name Provider Procedure Notes S tatus Complex e/m visit add on Giulia Morse MD completed CT- Coronary CA score Giulia Morse MD completed EKG Giulia Mosre MD completed EKG Giulia Morse MD completed EKG Bennett Ayon MD completed EKG Giulia Morse MD completed EKG Giulia Morse MD completed
== END 2025-03-22 07:51 | disposition home or self-care (01) ==
PROVIDERS: PCP Internal Medicine; Visit Provider Internal Medicine
DX: M85.852 Other specified disorders of bone density and structure, left thigh (principal); M85.851 Other specified disorders of bone density and structure, right thigh; M81.0 Age-related osteoporosis without current pathological fracture
CPT/HCPCS: 73030; 77080

== ENCOUNTER 2025-03-22 08:41 | Outpatient (CLI) | payer OTHER, SELFPAY ==
--- NOTE | ~2025-03-22 | XR_ITS ---
Left Shoulder Technique: AP and axillary views were obtained. Clinical History: Pain Findings: No fracture or dislocation is seen. Osseous alignment is anatomic. The glenohumeral and acr omioclavicular joint spaces are preserved. Soft tissues are unremarkable. Impression: Unremarkable left shoulder radiographs. Reviewed, dictated and finalized at [facility]. Impression: Unremarkable left shoulder radiographs.
--- OUTSIDE RECORDS SUMMARY | 2025-03-22 09:08 | XMS_ITS | Clinical Summary ---
Author Organization [facility] Address [address] 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 This disclosure is being madepursuant to the Care Everywhere program and may not contain all information available regarding this patient. 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
--- OUTSIDE RECORDS SUMMARY | 2025-03-22 09:08 | XMS_ITS | Encounter Summary ---
Author Organization [facility] Address [address] [place] [address] Care Team Providers Care Palliative Medicine Physician Name Role Phone Unavailable Primary Care Provider Unavailabl e Encounter Details Date Type Department Care Team (Late st Contact Info) Description 09/04/2023 Lab Requisition [facility] [address] [place] [id number] Terri Rojas DO [address] [place] [address] Social History Tobacco Use Types Packs/Day Years Used Date Smoking Tobacco: Never Assessed Comments Unknown Sex and Gender Information Value Date Recorded Sex Assigned at Not on file Legal Sex Female 3:21 PM GOVERNMENT SERVICES PROFESSIONAL Gender Identity Not on file Sexual Orientation Not on file documented as of this encounter Plan of Treatment Not on file documented as of this encounter Procedures Procedure Name Priority Date/Time Associated Diagnosis Comments DERMATOPATHOLOGY Routine 09/04/2023 2:19 PM GOVERNMENT SERVICES PROFESSIONAL documented in this encounter Results * DERMATOPATHOLOGY (09/04/2023 2:19 PM GOVERNMENT SERVICES PROFESSIONAL) Case Report Dermatopathology Report Case: [id number] Authorizing Provider: Terri Rojas DO Collected: 09/04/2023 02:19 PM Ordering Location: [facility] Received: 09/06/2023 09:07 AM Pathologist: Chloé Ndiaye MD Specimen: Skin, right shoulder 3 2:23 PM GOVERNMENT SERVICES PROFESSIONAL DERMATOPATHOLOGY LABORATORY Final Diagnosis Specimen A. SKIN, right shoulder: COMPOUND MELANOCYTIC NEVUS (D22.61) 3 2:23 PM GOVERNMENT SERVICES PROFESSIONAL DERMATOPATHOLOGY LABORATORY at 1423 GOVERNMENT SERVICES PROFESSIONAL Clinical History IPN Irritated 11/20/202 3 2:23 PM [facility] DERMATOPATHOLOGY LABORATORY Gross Description Specimen A: Received is one formalin filled container labeled with the patient's name and designated right shoulder. The specimen consists of a shave biopsy measuring 5x4x2 mm. Jar 0. 3 2:23 PM [facility] DERMATOPATHOLOGY LABORATORY Microscopic Description Specimen A. SKIN, right shoulder: There are nests of melanocytes at the dermal-epidermal junction and within the dermis. 3 2:23 PM [facility] DERMATOPATHOLOGY LABORATORY Disclaimer An external and internal positive and negative controls are appropriate for the histochemical, immunohistochemical and immunofluorescence stain(s) in this case (if any), except where stated explicitly. The performance characteristics of the stain(s) cited in this report were developed and its performance characteristic determined by the Dermatopathology Laboratory at [facility], directed by Dr. Katie Dacosta. These tests need not be, and therefore are not, approved by the [place] Food and Drug Administration. The tests are used for clinical purposes. Billing Codes Specimen Charges Stain Charges 97534 1 3 2:23 PM [facility] DERMATOPATHOLOGY LABORATORY Embedded Images 3 2:23 PM [facility] DERMATOPATHOLOGY LABORATORY Pathology/Cytolo gy TISSUE SPECIMEN FROM SKIN / Unknown 09/04/2023 2:19 PM GOVERNMENT SERVICES PROFESSIONAL 09/06/2023 9:07 AM GOVERNMENT SERVICES PROFESSIONAL us Terri Rojas DO LAB - PATHOLOGY/CYTOLOGY ORDERABLES Final Result DERMATOPATHOLOGY LABORATORY [facility] - Department of Dermatology [address], [address] [phone] documented in this encounter Visit Diagnoses Not on filedocumented in this encounter
--- OUTSIDE RECORDS SUMMARY | 2025-03-22 09:08 | XMS_ITS | CONTINUITY OF CARE DOCUMENT ---
Author Name melani, melani Address Unknown Organization [facility] Address [address] [place] [address] Phone [phone] Care Team Providers Care Nuclear Physics Teacher Name Role Phone Hammad CONTRERAS, Giulia Unavailable JAY CONTRERAS, CURT Unavailable [phone] JAY CONTRERAS, CURT Unavailable PROBLEMS Condition Status Date Provider Notes OBESITY [...] In-person encounter Office Visit Giulia Morse MD [facility] DISEASE, ACUTE BRONCHOSPASMEssential hypertension--echo ef nl, 08/2023SLEEP APNEA-08/27 SLEEP STUDY NEG - In-person encounter Office Visit Giulia Morse MD [facility] - In-person encounter Office Visit Giulia Morse MD [facility] Knee pain, left - In-person encounter Office Visit Giulia Morse MD [facility] Essential hypertension--echo ef nl, HEST PAIN- NL CATH AND RENALS IN 2005, CCS zero 08/2023 - In-person encounter Office Visit Giulia Morse MD [facility] Palpitations - In-person encounter Office Visit Giulia Morse MD [facility] - In-person encounter Office Visit Giulia Morse MD [facility] HTN-04/25 ECHO EF 60 SM PLEU. EFFHYPERCHOLESTEROLEMIA-LABS PER DR. THOMPSON OR DR. Abdulential hypertension--echo ef nl, 08/2023HTN- 12/01 ECHO PHILL 65-06/28 ECHO EF 60HTN ESSENTIALEdema varicose veins - In-person encounter Office Visit Giulia Morse MD [facility] - In-person encounter Office Visit Giulia Morse MD [facility] - In-person encounter Office Visit Giulia Morse MD [facility] - In-person encounter Office Visit Giulia Morse MD [facility] - In-person encounter Office Visit Giulia Morse MD [facility] - In-person encounter Office Visit Giulia Morse MD [facility] - In-person encounter Office Visit Giulia Morse MD [facility] CHEST PAIN- NL CATH AND RENALS [...] pulse rate 61 /min Chayito Juan Miguelcheryl [facility] weight E&M 159 [lb_av] Chayito Luizrobertochungnfe [facility] height E&M 64 [in_i] Chayito Eliazarnfe [facility] Body Mass Index (Ratio) 29.55 kg/m2 Ian Morse MD pulse rate 82 /min [facility] size regular [facility], diastolic 86 mm[Hg] Ta bitha [facility] blood pressure, systolic 124 mm[Hg] Tab [facility] oxygen saturation, oximetry 98 % Sarah [facility] respiratory rate E&M 12 /min Sarah [facility] weight E&M 172.2 [lb_av] Sarah [facility] height E&M 64 [in_i] Sarah [facility] Body Mass Index (Ratio) 31.58 kg/m2 Ian Morse MD blood pressure, cuff size regular [facility] blood pressure, diastolic 92 mm[Hg] Tristian [facility] blood pressure, systolic 166 mm[Hg] Saroj brian Huitron pulse rate 60 /min [facility] oxygen saturation, oximetry 98 % [facility] respiratory rate E&M 16 /min [facility] iller weight E&M 184 [lb_av] [facility] height E&M 64 [in_i] [facility] Body Mass Index (Ratio) 30.89 kg/m2 Ian Morse MD blood pressure, cuff size regular [facility] blood pressure, diastolic 79 mm[Hg] [facility] blood pressure, systolic 127 mm[Hg] [facility] oxygen saturation, oximetry 99 % [facility] respiratory rate E&M 16 /min [facility] pulse rate 73 /min [facility] weight E&M 180 [lb_av] [facility] height E&M 64 [in_i] [facility] Body Mass Index (Ratio) 30.89 kg/m2 Ian Morse MD blood pressure, diastolic 80 mm[Hg] Ana nkLog blood pressure, systolic 138 mm[Hg] Zoë kLog blood pressure, cuff size regular [facility] blood pressure, diastolic 80 mm[Hg] [facility] blood pressure, systolic 138 mm[Hg] [facility] pulse rate 84 /min Derick erda y weight E&M 180 [lb_av] Derick er respiratory rate E&M 12 /min Derick oxygen saturation, oximetry 97 % Derick height E&M 64 [in_i] Edrick er y Body Mass Index (Ratio) 33.47 [...] Mass Index (Ratio) 31.41 kg/m2 Danikaa flaquito [facility] blood pressure, diastolic 87 mm[Hg] An eatris [facility] blood pressure, systolic 165 mm[Hg] Ane atris [facility] pulse rate 69 /min Aneatris [facility] oxygen saturation, oximetry 97 % Aneatrsy Carter [...] Normal Absolute Neutrophil count 5382 cells/mcL [employer] [id number] Normal platelet count 168 THOUSAND/UL [employer] 140-400 [...] = 46 Normal cholesterol, serum 149 mg/dL [facility] 125-200 Normal triglyceride, serum, fasting 69 mg/dL [facility] HDL cholesterol, serum 49 mg/dL [facility] lipoprotein, beta, serum, point, quantitative, calculated 63 mg/dL [facility] cholesterol, serum 126 mg/dL [facility] thyroid stimulating hormone, serum 0.86 u[IU]/mL [facility] alanine aminotransferase (SGPT), serum 51 1/L [facility] aspartate aminotransferase (SGOT), serum 30 1/L [facility] urea nitrogen, blood 18 mg/dL [facility] potassium, serum 4.0 mmol/L [facility] sodium, serum 140 mmol/L [facility] lipoprotein, beta, serum, point, quantitative, calculated 53 mg/dL [facility] cholesterol, serum 107 mg/dL [facility] thyroid stimulating hormone, serum 0.07 u[IU]/mL [facility] alanine aminotransferase (SGPT), serum 24 1/L [facility] aspartate aminotransferase (SGOT), serum 20 1/L [facility] creatinine, serum 0.66 mg/dL [facility] sodium, serum 138 mmol/L Den[facility] cholesterol/HDL ratio, serum 3.6 triglyceride, serum, fasting 152 mg/dL HDL cholesterol, serum 40 mg/dL LDL cholesterol, serum 74 mg/dL [facility] cholesterol, serum 144 mg/dL [facility] globulins, serum, total 2.3 g/dL [facility] Estimated Glomerular Filtration Rate (calc) 102 mL/min/{1.73_ m2} [facility] albumin/globulin ratio, serum 1.9 [facility] protein, total, serum 6.7 g/dL [facility] albumin, serum 4.4 g/dL [facility] bilirubin, serum, total 0.4 mg/dL [facility] alkaline phosphatase, serum 59 1/L alanine aminotransferase (SGPT), serum 13 1/L aspartate aminotransferase (SGOT), serum 12 1/L [facility] calcium, serum 8.9 mg/dL [facility] blood glucose, fasting 93 mg/dL creatinine, serum 0.69 mg/dL [facility] urea nitrogen, blood 20 mg/dL [facility] carbon dioxide, serum, total 24 mmol/L chloride, serum 106 mmol/L potassium, serum 4.1 mmol/L [facility] sodium, serum 140 mmol/L [facility] Vitamin D, 25 Hydroxy D3 27 ng/mL [facility] Vitamin D, 25 Hydroxy D2 <4 ng/mL [facility] basophils as percent of blood leukocytes 0.2 [...] Normal Absolute Neutrophil count 4076 cells/mcL [employer] ([id number]) Normal platelet count 189 THOUSAND/UL [employer] (140-400) [...] Low leukocyte esterase, urine, by dipstick Negative [facility] urobilinogen, urine, semiquantitative (dipstick) 0.2 [facility] nitrite, urine, semiquantitative Negative [facility] RBC, urine, dipstick Negative [facility] bilirubin, urine Negative [facility] ketones, urine, by test strip Negative [facility] glucose, urine, semiquantitative Negative [facility] protein, urine, semiquantitative (dipstick) Negative [facility] pH, urine, semiquantitative 6.5 [facility] Demetri specific gravity, urine 1.022 [facility] urine color Yellow [facility] appearance, urine Clear [facility] thyroid stimulating hormone, serum 0.36 u[IU]/mL [facility] thyroxine, serum, free 1.3 ng/dL [facility] cholesterol/HDL ratio, serum 3.2 [facility] triglyceride, serum, fasting 151 mg/dL [facility] HDL cholesterol, serum 39 mg/dL [facility] LDL cholesterol, serum 56 mg/dL [facility] cholesterol, serum 125 mg/dL [facility]ri globulins, serum, total 2.3 g/dL [facility] Estimated Glomerular Filtration Rate (calc) >60 [facility] Dem[facility] albumin/globulin ratio, serum 2.0 [facility] protein, total, serum 6.9 g/dL [facility] albumin, serum 4.6 g/dL [facility] bilirubin, serum, total 0.5 mg/dL [facility] alkaline phosphatase, serum 60 1/L [facility] alanine aminotransferase (SGPT), serum 18 1/L [facility] aspartate aminotransferase (SGOT), serum 19 1/L [facility] calcium, serum 9.7 mg/dL [facility] blood glucose, fasting 98 mg/dL [facility] creatinine, serum 0.74 mg/dL [facility] urea nitrogen, blood 16 mg/dL [facility] carbon dioxide, serum, total 28 mmol/L [facility] chloride, serum 102 mmol/L [facility] potassium, serum 3.8 mmol/L [facility] sodium, serum 137 mmol/L [facility] albumin/globulin ratio, serum 1.8 [facility] protein, total, serum 7.1 g/dL [facility] albumin, serum 4.6 g/dL [facility] bilirubin, serum, total 0.4 mg/dL [facility] alkaline phosphatase, serum 59 1/L [facility] alanine aminotransferase (SGPT), serum 17 1/L [facility] aspartate aminotransferase (SGOT), serum 14 1/L [facility] calcium, serum 9.4 mg/dL [facility] blood glucose, fasting 108 mg/dL [facility] creatinine, serum 0.70 mg/dL [facility] urea nitrogen, blood 13 mg/dL [facility] carbon dioxide, serum, total 27 mmol/L [facility] chloride, serum 109 mmol/L [facility] potassium, serum 4.2 mmol/L [facility] sodium, serum 139 mmol/L [facility] globulins, serum, total 2.5 g/dL [facility] Estimated Glomerular Filtration Rate (calc) >60 [facility] cholesterol/HDL ratio, serum 2.9 [facility] triglyceride, serum, fasting 113 mg/dL [facility] HDL cholesterol, serum 45 mg/dL [facility] LDL cholesterol, serum 62 mg/dL [facility] cholesterol, serum 130 mg/dL [facility] thyroid stimulating hormone, serum 0.23 u[IU]/mL [facility] thyroxine, serum, free 1.4 ng/dL [facility] albumin/globulin ratio, serum 1.6 [facility] protein, total, serum 7.1 g/dL [facility] albumin, serum 4.4 g/dL [facility] bilirubin, serum, total 0.4 mg/dL [facility] alkaline phosphatase, serum 67 1/L [facility] alanine aminotransferase (SGPT), serum 24 1/L [facility] aspartate aminotransferase (SGOT), serum 26 1/L [facility] calcium, serum 9.4 mg/dL [facility] blood glucose, fasting 89 mg/dL [facility] creatinine, serum 0.74 mg/dL [facility] urea nitrogen, blood 17 mg/dL [facility] carbon dioxide, serum, total 24 mmol/L [facility] chloride, serum 102 mmol/L [facility] potassium, serum 4.1 mmol/L [facility] sodium, serum 138 mmol/L [facility] triglyceride, serum, fasting 186 mg/dL [facility] HDL cholesterol, serum 37 mg/dL [facility] LDL cholesterol, serum 85 mg/dL [...] TABLET active 1 tablet once a day oTmi [facility] Celexa 20 mg tablet active 1 [...] exercise, f requency, days per week yes [facility] caffeine use, averag e drinks per day yes [facility] alcohol use, average drinks per day social basis only [facility] number of years as a smoker 10 years or m ore [facility] smoking status Quit [facility] MENTAL STATUS Date Observation Value Provider assessment [...] Payer name Policy type / Coverage type [place] [employer] party ID [id number] ADVANCE DIRECTIVES Name Date DISCUSSED - NO DECISION MADE TREATMENT PLAN Date Name Performer [id number] Riaz Ahmedza i [id number],S, Tomi Tapiamedza i [id number],S, Tomi Tapiamedza i [id number],S, Tomi Tapiamedza i [id number],S, Tomi Tapiamedza i [id number],S, Tomi Tapiamedza i [id number],S, Tomi Tapiamedza i [id number],S, Tomi Tapiamedza i [id number],S, Tomi Tapiamedza i [id number],N, Tomi Marieza i Cardiology Giulia Morse MD [...] Mcg Tablet (Levothyroxine) ..... Once a day [facility]: H er updated medication list for this problem includes: Metoprolol Succinate 50 Mg Tablet Extended Release 24 Hr (Metoprolol succinate) ..... Take 1 tablet by mouth every day [facility]: B P today: 124/86 P rior [...] 1 tablet by mouth once a day [facility]: H er updated medication list for this problem includes: Metoprolol Succinate 50 Mg Tablet Extended Release 24 Hr (Metoprolol succinate) ..... Take 1 tablet by mouth every day [facility]:Monitor y our BP at home, goal [...] 1 tablet by mouth once a day [facility]: O rders: X -Ray, Knee (CPT-82235) Tomi Ahmedzai Cardiology Tomi Ahmedzai Cardiology Tomi [...] ..... One tab. daily Orders: E KG (CPT-91345) BP today: 124/80 P rior BP: 143/93 [...] (09/05/2010) Orders: C OMPREHENSIVE METABOLIC PANEL W/EGFR (56319) C BC (INCLUDES DIFF/PLT) (6399) T HYROID PANEL WITH TSH, 3RD GENERATION (7444) V ITAMIN D, 25-HYDROXY, LC/MS/MS (39786) L IPID PANEL (7600) Giulia Morse MD routine: H er updated medication list for this problem includes: Crestor 20 Mg Tabs (Rosuvastatin calcium) ..... One tab. daily BP today: 143/93 Prior BP: 142/80 (12/05/2010) C HOL: 125 (09/05/2010) LDL: 56 (09/05/2010) HDL: 39 (09/05/2010) T (09/05/2010) Orders: C OMPREHENSIVE METABOLIC PANEL W/EGFR (45626) C BC (INCLUDES DIFF/PLT) (6399) T HYROID PANEL WITH TSH, 3RD GENERATION (7444) V ITAMIN D, 25-HYDROXY, LC/MS/MS (88454) L IPID PANEL (7600) Giulia Mrose MD routine Giulia Morse MD routine: H [...] T (09/05/2010) Orders: C BC (INCLUDES DIFF/PLT) (8432) T HYROID PANEL WITH TSH, 3RD GENERATION (4244) V ITAMIN D, 25-HYDROXY, LC/MS/MS (95849) L IPID PANEL (1750) Giulia Morse MD follow up: H er [...] CA score Giulia Morse MD completed EKG iGulia Morse MD completed EKG Giulia Morse MD completed EKG Bennett Ayon MD completed EKG Giulia Morse MD completed EKG Giulia Morse MD completed
== END 2025-03-22 08:42 | disposition home or self-care (01) ==
PROVIDERS: PCP Internal Medicine
DX: M25.512 Pain in left shoulder (principal)
CPT/HCPCS: 73030

== ENCOUNTER 2025-08-30 14:47 | Outpatient (CLI) | payer OTHER, SELFPAY ==
--- NOTE | ~2025-08-30 | MM_ITS ---
EXAMINATION: MM screening elaine BI w sukhi HISTORY: Screening TECHNIQUE: Craniocaudal and mediolateral oblique 3-D tomosynthesis images were obtained and synthetic 2-D images were generated. CAD analysis was submitted and interpreted. COMPARISON: Comparison to multiple prior studies sequentially, with oldest reviewed study dated Comparison to multiple prior studies sequentially, with oldest reviewed study dated 01/23/2023. . BREAST PARENCHYMAL COMPOSITION: Not dense: There are scattered areas of fibroglandular density. FINDINGS: The right breast is stable without evidence for malignancy. There is a mass in the upper outer quadrant of the left breast, anterior third. There are asymmetries in the upper outer quadrant of the left breast, posterior third. IMPRESSION: 1. Left breast mass and asymmetries involving the upper outer quadrant. 2. Additional mammographic views and possible breast ultrasound are recommended. BI-RADS Category 0: Incomplete: Needs additional imaging evaluation. Reviewed, dictated and finalized at location B. OM LOADER IMPRESSION: 1. Left breast mass and asymmetries involving the upper outer quadrant. 2. Additional mammographic views and possible breast ultrasound are recommended . BI-RADS Category 0: Incomplete: Needs additional imaging evaluation.
--- OUTSIDE RECORDS SUMMARY | 2025-08-30 14:50 | XMS_ITS | Clinical Summary ---
Author Organization [facility] Address [address] [place] [address] Care Team Providers Care Top Bottom Attaching Machine Operator Name Role Phone Ambrocio Leahy MD Primary Care Provider Allergies Active Allergy Reactions Criticality Noted Date Comments Penicillin Hives Medium 04/20/2025 Sulfa Hives Medium 04/20/2025 Medications acetaminophen- codeine (TYLENOL with CODEINE #3) 300-30 mg per tabletIndicati ons:Abrasion of right cornea, initial encounter,Opht halmalgia, right Take 1 tablet by mouth every 6 (six) hours as needed for pain Collaborating physician Tommy Castle MD 15 tablet 5 Active neomycin-polym yxin-dexAMETHa sone (MAXITROL) 3.5mg/mL-10,00 0 unit/mL-0.1 % ophthalmic suspensionIndi cations:Abrasi on of right cornea, initial encounter,Opht halmalgia, right Administer 1 drop into the right eye 4 (four) times a day Instill 1 drop in right eye 4 times daily for 5 days. Collaborating physician Tommy Castle MD 5 mL 5 Active Active Problems Problem Noted Date Diagnosed Date Right corneal abrasion 04/20/2025 Ophthalmalgia, right 04/20/2025 Social History Tobacco Use Types Packs/Day Years Used Date Smoking Tobacco: Never Assessed Personal Safety Answer Date Recorded Have you ever been in or are you currently in a harmful physical or emotional relationship or is someone making you feel afraid or unsafe? 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 Gender Identity Not on file Sexual Orientation Not on file Last Filed Vital Signs Vital Sign Reading Time Taken Comments Blood Pressure 124/62 04/20/2025 7:05 PM CDT Pulse 62 04/20/2025 7:05 PM CDT Temperature 36.7 C (98 F) 04/20/2025 3:18 PM CDT Respiratory Rate 15 04/20/2025 7:05 PM CDT Oxygen Saturation 100% 04/20/2025 7:05 PM CDT Inhaled Oxygen Concentration - - Weight 68 kg (150 lb) 04/20/2025 3:18 PM CDT Height 162.6 cm (5' 4) 03/01/2015 7:36 AM CDT Body Mass Index - - Plan of Treatment Health Maintenance Due Date Last Done Comments Breast Cancer Screening-Mammogram 1960 Cervical Cancer Screening 1960 Colon Cancer Screening-Colonoscopy 1960 Depression Screening 1960 Hepatitis C Screening 1960 DTaP/Tdap/Td Vaccine (1 - Tdap) 1972 Hepatitis B Screening 1979 Regular Well Visit/Exam 18-64 1979 Influenza Vaccine (#1) 2025 , 08/01/2023, 07/30/2022, Additional history exists Zoster Vaccine Completed 10/16/2024, 08/05/2024 Pneumococcal vaccine <65 Aged Out No longer eligible based on patient's age to complete this topic Insurance [employer] Care Teams Top Bottom Attaching Machine Operator Relationship Specialty Start Date End Date Ambrocio Leahy MD [address] [facility] [address] [place] [address] PCP - General Internal Medicine 04/20/25
--- OUTSIDE RECORDS SUMMARY | 2025-08-30 14:50 | XMS_ITS | Clinical Summary ---
Author Organization [facility] Address [address] [place] [address] Care Team Providers Care Water Analyst Name Role Phone Unavailable Primary Care Provider Unavailabl e Source Comments [facility],non-owned Affiliates and Associated Physician Practices is amultiple site organization consisting of ambulatory clinics and hospital sitesin [place], [place], [place] and [place]. This disclosure is being madepursuant to the Care Everywhere program and may not contain all information available regarding this patient. 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
--- OUTSIDE RECORDS SUMMARY | 2025-08-30 14:50 | XMS_ITS | Encounter Summary ---
Author Organization [facility] Address [address] [place] [address] Care Team Providers Care Basting Marker Name Role Phone Unavailable Primary Care Provider Unavailabl e Encounter Details Date Type Department Care Team (Late st Contact Info) Description 09/04/[address] [facility] - DermPath Lab [address], [place] [place] [phone] Terri Rojas DO [address] 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 DermPath Lab Received: 09/06/2023 09:07 AM Pathologist: Chloé Ndiaye MD Specimen: Skin, right shoulder 3 2:23 PM MUSEUM GUIDE DERMATOPATHOLOGY LABORATORY Final Diagnosis Specimen A. SKIN, right shoulder: COMPOUND MELANOCYTIC NEVUS (D22.61) 3 2:23 PM MUSEUM GUIDE DERMATOPATHOLOGY LABORATORY at 1423 MUSEUM GUIDE Clinical History IPN Irritated 11/20/202 3 2:23 PM [facility] DERMATOPATHOLOGY LABORATORY Gross Description Specimen A: Received is one formalin filled container labeled with the patient's name and designated right shoulder. The specimen consists of a shave biopsy measuring 5x4x2 mm. Jar 0. 3 2:23 PM [facility] DERMATOPATHOLOGY LABORATORY Microscopic Description Specimen A. SKIN, right shoulder: There are nests of melanocytes at the dermal-epidermal junction and within the dermis. 3 2:23 PM [facility] DERMATOPATHOLOGY LABORATORY Disclaimer An external and internal positive and negative controls are appropriate for the histochemical, immunohistochemical and immunofluorescence stain(s) in this case (if any), except where stated explicitly. The performance characteristics of the stain(s) cited in this report were developed and its performance characteristic determined by the Dermatopathology Laboratory at [facility], directed by Dr. Katie Dacosta. These tests need not be, and therefore are not, approved by the [place] Food and Drug Administration. The tests are used for clinical purposes. Billing Codes Specimen Charges Stain Charges 62074 1 3 2:23 PM [facility] DERMATOPATHOLOGY LABORATORY Embedded Images 3 2:23 PM [facility] DERMATOPATHOLOGY LABORATORY Pathology/Cytolo gy TISSUE SPECIMEN FROM SKIN / Unknown 09/04/2023 2:19 PM MUSEUM GUIDE 09/06/2023 9:07 AM MUSEUM GUIDE us Terri Rojas DO LAB - PATHOLOGY/CYTOLOGY ORDERABLES Final Result DERMATOPATHOLOGY LABORATORY [facility] - Department of Dermatology [address], [address] [phone] documented in this encounter Visit Diagnoses Not on filedocumented in this encounter
== END 2025-08-30 14:48 | disposition home or self-care (01) ==
LOC: CHSIMG 14:48
PROVIDERS: PCP Internal Medicine; Visit Provider Internal Medicine
DX: Z12.31 Encounter for screening mammogram for malignant neoplasm of breast (principal); R92.8 Other abnormal and inconclusive findings on diagnostic imaging of breast
CPT/HCPCS: 77063; 77067

== ENCOUNTER 2025-10-19 10:12 | Outpatient (CLI) | payer OTHER, SELFPAY ==
--- NOTE | ~2025-10-19 | US_ITS ---
EXAMINATION: MM diagnostic elaine LT w sukhi and limited left breast ultrasound HISTORY: Additional imaging TECHNIQUE: Craniocaudal and mediolateral oblique 3-D tomosynthesis images were obtained and synthetic 2-D images were generated. CAD analysis was submitted and interpreted. Grayscale sonography over the area(s) of interest with color Doppler if there is a finding. COMPARISON: August 30. Studies from 2023 and 2022. BREAST PARENCHYMAL COMPOSITION: Dense: The breasts are heterogeneously dense MAMMOGRAM FINDINGS: A mass persists in the anterior 12:00 left breast. This is unchanged mammographically since 2022, the oldest study available. It has a somewhat triangular appearance in the MLO view. No three-dimensional mass is identified in the upper-outer quadrant. There is dense tissue present. There are no suspicious calcifications. No unexplained architectural distortion is seen. There are no skin or nipple abnormalities identified. There is no adenopathy seen on the images submitted. ULTRASOUND FINDINGS: Sonography through the 12:00 left breast near the nipple demonstrates a hypoechoic mass with circumscribed margins and a maximum dimension of 10 mm. It has a parallel orientation and a somewhat irregular shape, similar to a triangle, as seen mammographically. IMPRESSION: The structure seen mammographically is unchanged in shape from the screening exam of 2022 and has a similar shape to the ultrasound finding. This has been difficult to visualize on older studies because of the dense tissue. It is only well seen on tomography, on which it appears stable. Since this has become a question and the mass has previously not been seen sonographically, a 6 month follow-up left mammogram and left breast ultrasound are recommended. BI-RADS 3 - Probably benign - short-term follow-up is recommended. Reviewed, dictated and finalized at location C. ICE OBSERVER IMPRESSION: The structure seen mammographically is unchanged in shape from the screening ex am of 2022 and has a similar shape to the ultrasound finding. This has been dif ficult to visualize on older studies because of the dense tissue. It is only we ll seen on tomography, on which it appears stable. Since this has become a ques tion and the mass has previously not been seen sonographically, a 6 month follo w-up left mammogram and left breast ultrasound are recommended. BI-RADS 3 - Probably benign - short-term follow-up is recommended.
--- OUTSIDE RECORDS SUMMARY | 2025-10-19 10:42 | XMS_ITS | Clinical Summary ---
Author Organization [facility] Address [address] [place] [address] Care Team Providers Care Amusement Park Entertainer Name Role Phone Unavailable Primary Care Provider Unavailabl e Source Comments [facility],non-owned Affiliates and Associated Physician Practices is amultiple site organization consisting of ambulatory clinics and hospital sitesin [place], [place], [place] and [place]. This disclosure is being madepursuant to the Care Everywhere program and may not contain all information available regarding this patient. Last updated 18.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
--- OUTSIDE RECORDS SUMMARY | 2025-10-19 10:42 | XMS_ITS | Clinical Summary ---
Author Organization [facility] Address [address] [place] [address] Care Team Providers Care Extrusion Engineer Name Role Phone Pcp, No Primary Care Provider [phone] Social History Tobacco Use Types Packs/Day Years Used Date Smoking Tobacco: Never Assessed Comments Unknown Sex and Gender Information Value Date Recorded Sex Assigned at Not on file Legal Sex Female 8:00 AM EDT Gender Identity Not on file Sexual Orientation Not on file Plan of Treatment Not on file Medical Devices Not on file Care Teams Extrusion Engineer Relationship Specialty Start Date End Date PcpSary PCP - General Family Medicine 05/21/22
--- OUTSIDE RECORDS SUMMARY | 2025-10-19 10:42 | XMS_ITS | Encounter Summary ---
Author Organization [facility] Address [address] [place] [address] Care Team Providers Care Braille Operator Name Role Phone Unavailable Primary Care Provider Unavailabl e Encounter Details Date Type Department Care Team (Late st Contact Info) Description 09/04/2023 Lab Requisition [facility] - DermPath Lab [address] 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 Gender Identity Not on file Sexual Orientation Not on file documented as of this encounter Plan of Treatment Not on file documented as of this encounter Procedures Procedure Name Priority Date/Time Associated Diagnosis Comments DERMATOPATHOLOGY Routine 09/04/2023 2:19 PM HAND OUTSIDE CUTTER documented in this encounter Results * DERMATOPATHOLOGY (09/04/2023 2:19 PM HAND OUTSIDE CUTTER) Case Report Dermatopathology Report Case: [id number] Authorizing Provider: Terri Rojas DO Collected: 09/04/2023 02:19 PM Ordering Location: [facility] DermPath Lab Received: 09/06/2023 09:07 AM Pathologist: Chloé Ndiaye MD Specimen: Skin, right shoulder 3 2:23 PM HAND OUTSIDE CUTTER DERMATOPATHOLOGY LABORATORY Final Diagnosis Specimen A. SKIN, right shoulder: COMPOUND MELANOCYTIC NEVUS (D22.61) 3 2:23 PM HAND OUTSIDE CUTTER DERMATOPATHOLOGY LABORATORY at 1423 HAND OUTSIDE CUTTER Clinical History IPN Irritated 11/20/202 3 2:23 PM [facility] DERMATOPATHOLOGY LABORATORY Gross Description Specimen A: Received is one formalin filled container labeled with the patient's name and designated right shoulder. The specimen consists of a shave biopsy measuring 5x4x2 mm. Jar 0. 3 2:23 PM [facility] DERMATOPATHOLOGY LABORATORY Microscopic Description Specimen A. SKIN, right shoulder: There are nests of melanocytes at the dermal-epidermal junction and within the dermis. 3 2:23 PM [facility] DERMATOPATHOLOGY LABORATORY Disclaimer An external and internal positive and negative controls are appropriate for the histochemical, immunohistochemical and immunofluorescence stain(s) in this case (if any), except where stated explicitly. The performance characteristics of the stain(s) cited in this report were developed and its performance characteristic determined by the Dermatopathology Laboratory at [facility], directed by Dr. Katie Dacosta. These tests need not be, and therefore are not, approved by the [place] Food and Drug Administration. The tests are used for clinical purposes. Billing Codes Specimen Charges Stain Charges 53125 1 3 2:23 PM [facility] DERMATOPATHOLOGY LABORATORY Embedded Images 3 2:23 PM [facility] DERMATOPATHOLOGY LABORATORY Pathology/Cytolo gy TISSUE SPECIMEN FROM SKIN / Unknown 09/04/2023 2:19 PM HAND OUTSIDE CUTTER 09/06/2023 9:07 AM HAND OUTSIDE CUTTER us Terri Rojas DO LAB - PATHOLOGY/CYTOLOGY ORDERABLES Final Result DERMATOPATHOLOGY LABORATORY [facility] - Department of Dermatology [address] [phone] documented in this encounter Visit Diagnoses Not on filedocumented in this encounter
--- OUTSIDE RECORDS SUMMARY | 2025-10-19 10:42 | XMS_ITS | Clinical Summary ---
Author Organization [facility] Address [address] [place] [address] Care Team Providers Care Drum Straightener Name Role Phone Ambrocio Leahy MD Primary [...] on file Legal Sex Female 8:58 PM DROP WIRE ALINER Gender Identity Not on file Sexual Orientation [...] patient's age to complete this topic Insurance [facility] [employer] [facility] H[employer]/PPO Address: [place] [address] Care Teams Drum Straightener Relationship Specialty Start Date End Date Ambrocio Leahy MD [address] [facility] [address] [place] [address] PCP - General Internal Medicine 04/20/25
== END 2025-10-19 10:13 | disposition home or self-care (01) ==
PROVIDERS: PCP Internal Medicine; Visit Provider Internal Medicine
DX: R92.8 Other abnormal and inconclusive findings on diagnostic imaging of breast (principal)
CPT/HCPCS: 76642; 77061; 77065; G0279